=== PATIENT | male | born 1955 | race African-American/Black ===

== ENCOUNTER → 2018-01-16 | Outpatient (CLI) | payer OTHER, MEDICAID ==
[2015-11-01 09:41] VITALS: BP 125/71
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
== END ==
LOC: RAD 13:54
PROVIDERS: ATTEND Internal Medicine Nephrology
DX: R05 Cough (principal)
CPT/HCPCS: 71046

== ENCOUNTER 2018-12-21 14:49 | Inpatient (IN) ==
--- NOTE | 2018-12-21 15:38 | DR.AMS ---
HPI Time Seen Time Seen by Provider: 12/21/18 15:34 PCP Primary Care Physician: FLORENTINO HPI Comment HPI Comment: 63YR OLD MALE HERE WITH AMS AND HYPOGLYCEMIA. PATIENT GLUCOSE IMPROVE CURRENTLY. HERE VIA EMS. PATIENT SAID HE IS NOT BEING FEELING WELL WHICH CAUSE HIS GLUCOSE TO GET LOW. DENIES CHEST PAIN, FEVER, DYSURIA OR ABDOMINAL PAIN. Complaint Cheif Complaint Doctors Comments: AMS, LOW BLOOD GLUCOSE. Chief Complaint:: PATIENT STATED THAT HE HAS NOT BEEN FEELING GOOD TODAY AND HIS BLOOD SUGAR DROPPED LOW. HE ALSO STATED THAT HE DID NOT TAKE ANY OF HIS MEDICATIONS TODAY. Reviewed Nurses Notes Reviewed: Yes Source History Provided: Patient and EMS Mode of Arrival Mode of Arrival: EMS Timing Onset of Chief Complaint: 12/21/18 Came On: Suddenly Duration Duration: Constant Duration: Hours Quality Quality: Change in Behavior and Confusion Severity Severity: Moderate Context Recent: None History Of: Diabetes Associated Signs and Symptoms Associated Signs and Symptoms: Change in Behavior and Confusion PMH PMH Past Medical History: Yes Past Medical History: Arthritis, Diabetes and Hypertension Past Medical History Comment: HIV Past Surgical History: No Surgical History: No History Family History History of Family Medical Conditions: Yes Family Medical History: Diabetes Mellitus and Hypertension Social History Does patient currently use any type of tobacco product: No Have you used tobacco products in the last 12 months: No Type of Tobacco Use: None Does any household member use tobacco: No Alcohol Use: None Do you use any recreational Drugs:: No Lives With: Family Lives Where: Home infectious screening In the last 2 months have you had wt loss of >10#?: NO Have you had fever, night sweats or hemotysis?: No Have you traveled outside the country in the last 6 months?: No Isolation: Standard ROS Review of Systems Constitutional: Weakness and Fatigue Eyes: No Symptoms Reported ENTM: No Symptoms Reported Respiratoy: No Symptoms Reported Cardiovascular: No Symptoms Reported Gastrointestinal/Abdominal: No Symptoms Reported Genitourinary: No Symptoms Reported Neurological: No Symptoms Reported Musculoskeletal: No Symptoms Reported Hematologic/Lymphatic: No Symptoms Reported Endocrine: No Symptoms Reported All Other Systems: Reviewed and Negative Unable to Obtain Due To: Altered mental status PE Vitals Vital Signs: Temp Pulse Pulse Pulse Resp BP BP 12/27/18 16:00 97.5 F L 67 20 12/27/18 12:00 97.6 F 65 18 12/27/18 08:00 97.8 F 67 20 12/27/18 04:00 97.8 F 57 L 20 12/27/18 00:00 97.8 F 64 20 12/26/18 20:00 97.5 F L 67 20 12/26/18 16:00 97.9 F 77 20 12/26/18 12:00 97.6 F 93 H 20 12/26/18 08:00 97.5 F L 58 L 18 12/26/18 04:00 98.0 F 60 20 12/26/18 00:00 97.6 F 69 20 12/25/18 20:24 18 12/25/18 20:00 97.9 F 65 20 12/25/18 19:24 18 12/25/18 16:00 97.4 F L 62 18 12/25/18 12:00 98.0 F 57 L 18 12/25/18 08:00 97.8 F 62 18 12/25/18 04:00 97.6 F 58 L 18 12/24/18 23:49 98.1 F 69 18 12/24/18 20:00 97.9 F 72 18 12/24/18 16:00 98.3 F 72 18 12/24/18 12:00 98.1 F 71 20 12/24/18 11:03 18 12/24/18 10:03 18 12/24/18 08:00 98.0 F 68 18 12/24/18 04:00 99.2 F 68 16 87/51 12/24/18 00:00 99.9 F H 64 18 92/53 12/23/18 20:00 98.8 F 69 20 127/57 12/23/18 16:00 98.6 F 78 22 118/57 12/23/18 12:00 99.6 F 53 L 18 95/57 12/23/18 09:24 70 12/23/18 09:11 98.5 F 67 20 12/23/18 08:00 99.1 F 62 18 91/50 12/23/18 04:00 98.5 F 69 20 94/54 12/23/18 00:00 98.8 F 65 16 95/53 12/22/18 20:00 97.7 F 64 16 77/50 12/22/18 19:13 16 12/22/18 18:13 18 12/22/18 17:04 106/56 12/22/18 16:00 98.4 F 59 L 18 12/22/18 15:00 18 12/22/18 14:00 18 12/22/18 12:00 100.1 F H 70 20 12/22/18 08:00 100.7 F H 68 18 90/53 12/22/18 04:00 100.6 F H 68 18 109/62 12/22/18 00:00 99.6 F 66 18 98/56 12/21/18 19:35 97.6 F 70 20 108/60 12/21/18 18:10 98.4 F 12/21/18 18:00 97 F L 64 26 H 12/21/18 17:00 63 20 12/21/18 16:40 62 25 H 12/21/18 16:20 62 22 12/21/18 16:00 65 23 12/21/18 15:40 67 20 12/21/18 15:10 97.6 F 59 L 22 129/74 11/01/15 08:00 125/71 125/71 11/01/15 04:00 BP Pulse Ox 12/27/18 16:00 110/69 100 12/27/18 12:00 95/61 97 12/27/18 08:00 110/67 99 12/27/18 04:00 107/73 97 12/27/18 00:00 105/76 96 12/26/18 20:00 115/76 97 12/26/18 16:00 145/60 95 12/26/18 12:00 110/57 95 12/26/18 08:00 122/73 100 12/26/18 04:00 104/68 96 12/26/18 00:00 113/73 95 12/25/18 20:24 12/25/18 20:00 120/64 95 12/25/18 19:24 12/25/18 16:00 96/61 93 L 12/25/18 12:00 89/58 95 12/25/18 08:00 100/64 94 L 12/25/18 04:00 98/61 94 L 12/24/18 23:49 102/58 94 L 12/24/18 20:00 110/53 96 12/24/18 16:00 96/53 96 12/24/18 12:00 101/58 100 03/29/19 11:03 12/24/18 10:03 12/24/18 08:00 106/56 91 L 12/24/18 04:00 12/24/18 00:00 12/23/18 20:00 95 12/23/18 16:00 94 L 12/23/18 12:00 98 12/23/18 09:24 95 12/23/18 09:11 95 12/23/18 08:00 97 12/23/18 04:00 95 12/23/18 00:00 96 12/22/18 20:00 95 12/22/18 19:13 12/22/18 18:13 12/22/18 17:04 12/22/18 16:00 86/50 97 12/22/18 15:00 12/22/18 14:00 12/22/18 12:00 98/55 97 12/22/18 08:00 98 12/22/18 04:00 100 12/22/18 00:00 100 12/21/18 19:35 100 12/21/18 18:10 12/21/18 18:00 117/67 100 12/21/18 17:00 101/61 96 12/21/18 16:40 116/66 100 12/21/18 16:20 119/71 100 12/21/18 16:00 131/72 100 12/21/18 15:40 142/84 100 12/21/18 15:10 100 11/01/15 08:00 11/01/15 04:00 133/74 General Limitations: No Limitations General Appearance: Alert and In No Apparent Distress Head Head Exam: Normal Inspection Head Exam Physical: Other (NONE OF THE ABOVE REPORTED.) Eyes Eye exam: Normal Appearance and PERRL Pupils: Regular, Round: Bilateral ENT ENT Exam: Normal External Ear Exam External Ear Exam: Normal External Inspection TM/Canal Exam: Bilateral: Normal Nose Exam: Normal Nose Exam Mouth Exam: Normal Inspection Throat Exam: Normal Inspection Neck Neck Exam: Normal Inspection Chest Chest Inspection: Normal Inspection Respiratory Respiratory Exam: Normal Lung Sounds Bilat Respiratory Exam: Bilateral: Rhonchi and Lower: Rhonchi Cardiovascular Cardiovascular Exam: Regular Rate and Normal Rhythm Abdominal Exam Abdominal Exam: Normal Inspection Extremities Extremities Exam: Normal Inspection Back Back Exam: Normal Inspection Neurological Patient Oriented To: Person and Place Speech: Fluid Speech Cranial Nerve Exam: Gag reflex (XI): Normal Motor Strength - LUE: 5/5 Motor Strength - RUE: 5/5 Motor Strength - LLE: 5/5 Motor Strength - RLE: 5/5 Psychological Psychiatric Exam: Normal Affect Skin Skin Exam: Warm, Dry, Intact and Normal Color MDM Differential Diagnosis Metabolic: DKA, Hypercalcemia, Hypernatremia, Hypoglycemia and Hyponatremia Infectious: Sepsis and UTI COURSE Treatment Treatment: SEE ORDERS. Consultation Consultation Comments: DR ACUNA WILL ADMIT PATIENT. Education/Counseling Education/Counseling: Patient Educated On: Diagnosis ROR Labs Reviewed Laboratory Results Reviewed?: Yes Result Diagrams: 12/27/18 04:32 12/27/18 04:32 Laboratory: 12/22/18 18:25 Blood Blood Culture - Final 12/22/18 18:20 Blood Blood Culture - Final 12/23/18 13:59 Sputum - Expectorated Sputum Sputum Culture - Final 12/23/18 13:59 Sputum - Expectorated Sputum - Final 12/23/18 05:26 Urine,Clean Catch Urine Culture - Final WBC 6.6 X10^3/uL (3.6-10.0) 12/27/18 04:32 RBC 3.11 X10^6/uL (4.7-6.0) L 12/27/18 04:32 Hgb 9.2 g/dL (13.5-18.0) L 12/27/18 04:32 Hct 27.5 % (42.0-54.0) L 12/27/18 04:32 MCV 88.6 fL (80.0-100.0) 12/27/18 04:32 MCH 29.6 pg (27.0-34.0) 12/27/18 04:32 MCHC 33.5 g/dL (33.0-35.0) 12/27/18 04:32 RDW 13.2 % (11.6-16.5) 12/27/18 04:32 Plt Count 222 X10^3/uL (150.0-450.0) 12/27/18 04:32 MPV 8.7 fL (7.4-11.0) 12/27/18 04:32 Neut % (Auto) 76.1 % (42.0-75.0) H 12/27/18 04:32 Lymph % (Auto) 16.0 % (21.0-51.0) L 12/27/18 04:32 [place] % (Auto) 6.1 % (0.0-13.0) 12/27/18 04:32 Eos % (Auto) 1.6 % (0.9-2.9) 12/27/18 04:32 Baso % (Auto) 0.2 % (0.2-1.0) 12/27/18 04:32 Neut # (Auto) 5.0 x10^3/uL (2.2-4.8) H 12/27/18 04:32 Lymph # (Auto) 1.1 X10^3/uL (1.3-2.9) L 12/27/18 04:32 [place] # (Auto) 0.4 x10^3/uL (0.3-0.8) 12/27/18 04:32 Eos # (Auto) 0.1 x10^3/uL (0.0-0.2) 12/27/18 04:32 Baso # (Auto) 0.0 X10^3/uL (0.0-0.1) 12/27/18 04:32 Absolute Nucleated RBC 0.0 /100WBC 12/27/18 04:32 Sodium 139 mmol/L (136-145) 12/27/18 04:32 Corrected Sodium 141 mmol/L (136-145) 12/27/18 04:32 Potassium 4.1 mmol/L (3.5-5.1) 12/27/18 04:32 Chloride 109 mmol/L (98-107) H 12/27/18 04:32 Carbon Dioxide 19.9 mmol/L (21-32) L 12/27/18 04:32 BUN 27 mg/dL (7-18) H 12/27/18 04:32 Creatinine 2.16 mg/dL (0.70-1.30) H 12/27/18 04:32 Est GFR (MDRD) Af Amer 40 (>60) L 12/27/18 04:32 Est GFR (MDRD) Non-Af 33 (>60) L 12/27/18 04:32 Glucose 203 mg/dL (65-99) H 12/27/18 04:32 POC Glucose (mg/dL) 243 mg/dL (65-99) H 12/27/18 11:05 Calcium 7.9 mg/dL (8.5-10.1) L 12/27/18 04:32 Corrected Calcium 9.1 mg/dL (8.5-10.1) 12/27/18 04:32 Magnesium 1.8 mg/dL (1.7-2.9) 12/22/18 05:28 Total Bilirubin 0.30 mg/dL (0.2-1.0) 12/27/18 04:32 AST 234 Units/L (15-37) H 12/27/18 04:32 ALT 161 Units/L (12-78) H 12/27/18 04:32 Alkaline Phosphatase 366 Units/L (46-116) H 12/27/18 04:32 Creatine Kinase 215 Units/L (39-308) 12/23/18 08:40 CK-MB (CK-2) 1.4 ng/mL (0-4.0) 12/22/18 05:28 CK/CKMB % Calc 0.4 % (<4) 12/22/18 05:28 Troponin I < 0.02 ng/mL (0-1.5) 12/22/18 05:28 Total Protein 6.7 g/dL (6.4-8.2) 12/27/18 04:32 Albumin 2.5 g/dL (3.4-5.0) L 12/27/18 04:32 Globulin 4.2 g/dL (2.5-4.5) 12/27/18 04:32 Albumin/Globulin Ratio 0.6 Ratio (1.1-2.1) L 12/27/18 04:32 Specimen Type Clean catch urine 12/21/18 17:22 Urine Color Dark yellow (YELLOW) 12/21/18 17:22 Urine Appearance Clear (CLEAR) 12/21/18 17:22 Urine pH 5.0 (5.0 - 8.0) 12/21/18 17:22 Ur Specific [place] 1.015 (1.000-1.030) 12/21/18 17:22 Urine Protein 2+ (NEGATIVE) 12/21/18 17:22 Urine Glucose (UA) Negative (NEGATIVE) 12/21/18 17:22 Urine Ketones Negative (NEGATIVE) 12/21/18 17:22 Urine Occult Blood 1+ (NEGATIVE) 12/21/18 17:22 Urine Nitrite Negative (NEGATIVE) 12/21/18 17:22 Urine Bilirubin Negative (NEGATIVE) 12/21/18 17:22 Urine Urobilinogen Normal (NORMAL) 12/21/18 17:22 Ur Leukocyte Esterase Negative (NEGATIVE) 12/21/18 17:22 Urine RBC 0-2 /HPF (NONE SEEN) 12/21/18 17:22 Urine WBC None seen /HPF (NONE SEEN) 12/21/18 17:22 Ur Squamous Epith Cells Rare /HPF (NEGATIVE) 12/21/18 17:22 Amorphous Sediment Trace /HPF (NEGATIVE) 12/21/18 17:22 Urine Bacteria Trace /HPF (NEGATIVE) 12/21/18 17:22 Hyaline Casts Rare /LPF (NEGATIVE) 12/21/18 17:22 Urine Mucus Rare /HPF (NEGATIVE) 12/21/18 17:22 Ur Culture Indicated? No/not indicated 12/21/18 17:22 Stool Description 6oz, brwn, formed 12/25/18 16:03 Stl Occult Blood (IFOB) Positive (NEGATIVE) A 12/25/18 16:03 XRAY XRAY Interpreted by: Radiologist XRAY Findings: REPORT ON RECORD NOTED AND DISCUSS WITH PATIENT. EKG Rate: 66 [place]: Normal Rhythm: NSR and PVCs Block: IVCD Hypertrophy: LAE and PROSPER ST: Old, Ant and Infarct Diagnosis Discharge Problem: Hypoglycemia Instructions Instructions: Acute Kidney Injury, Adult Weakness, [id number] How to Use a Walker Type 2 Diabetes Mellitus, Diagnosis, Adult, [id number] Forms: Patient Portal
[2018-12-21 16:09] LABS: BASOPHILS % (AUTO) 0.7 % (0.2-1.0); EOSINOPHILS % (AUTO) 14.2 % (0.9-2.9); HEMATOCRIT 37.5 % (42.0-54.0); HEMOGLOBIN 12.4 g/dL (13.5-18.0); LYMPHOCYTES # (AUTO) 1.9 X10^3/uL (1.3-2.9); LYMPHOCYTES % (AUTO) 28.8 % (21.0-51.0); MEAN CORPUSCULAR HEMOGLOBIN 29.5 pg (27.0-34.0); MEAN CORPUSCULAR VOLUME 89.6 fL (80.0-100.0); MEAN PLATELET VOLUME 8.1 fL (7.4-11.0); MONOCYTES # (AUTO) 0.9 x10^3/uL (0.3-0.8); MONOCYTES % (AUTO) 12.9 % (0.0-13.0); NEUTROPHILS # (AUTO) 2.9 x10^3/uL (2.2-4.8); NEUTROPHILS % (AUTO) 43.4 % (42.0-75.0); PLATELET COUNT 187 X10^3/uL (150.0-450.0); RED BLOOD COUNT 4.19 X10^6/uL (4.7-6.0); RED CELL DISTRIBUTION WIDTH 13.4 % (11.6-16.5); WHITE BLOOD COUNT 6.7 X10^3/uL (3.6-10.0)
[2018-12-21 16:19] LABS: ALANINE AMINOTRANSFERASE 71 Units/L (12-78); ALBUMIN 3.2 g/dL (3.4-5.0); ALKALINE PHOSPHATASE 313 Units/L (46-116); ASPARTATE AMINO TRANSFERASE 109 Units/L (15-37); BLOOD UREA NITROGEN 35 mg/dL (7-18); CALCIUM 8.6 mg/dL (8.5-10.1); CARBON DIOXIDE 21.1 mmol/L (21-32); CHLORIDE 100 mmol/L (98-107); COR CA(FOR HYPOALB) 9.2 mg/dL (8.5-10.1); CREATININE 2.73 mg/dL (0.70-1.30); SODIUM 132 mmol/L (136-145); TOTAL PROTEIN 8.4 g/dL (6.4-8.2); eGFR NON BLACK RACES 25 (>60)
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
[2018-12-21] MEDS ORDERED: NS 1000 ML 1,000 ML ONE (17:02)
[2018-12-21] MEDS: NS 1000 ML 1,000 ML IV SCH (17:03)
[2018-12-21 18:13] LABS: BILIRUBIN,URINE NEGATIVE (NEGATIVE); BLOOD/HEMOGLOBIN,URINE 1+ (NEGATIVE); GLUCOSE, URINE NEGATIVE (NEGATIVE); KETONES,URINE NEGATIVE (NEGATIVE); LEUKOCYTE ESTERASE ,URINE NEGATIVE (NEGATIVE); NITRITES,URINE NEGATIVE (NEGATIVE); PROTEIN,URINE 2+ (NEGATIVE); UROBILINOGEN,URINE NORMAL (NORMAL)
[2018-12-21 18:21] LABS: AMORPHOUS SEDIMENT,UR TRACE /HPF (NEGATIVE); APPEARANCE,URINE CLEAR (CLEAR); BACTERIA,URINE TRACE /HPF (NEGATIVE); COLOR,URINE DARK YELLOW (YELLOW); HYALINE CASTS, URINE RARE /LPF (NEGATIVE); MUCUS,URINE RARE /HPF (NEGATIVE); RBC,URINE 0-2 /HPF (NONE SEEN); SQUAMOUS EPITHELIAL CELL,UR RARE /HPF (NEGATIVE)
[2018-12-21] MEDS ORDERED: D5 NS 1000 ML 1,000 ML ONE (20:34)
[2018-12-21] MEDS: D5 NS 1000 ML 1,000 ML IV SCH (21:10)
[2018-12-22 00:44] LABS: CKMB % 0.6 % (<4); CREATINE KINASE 357 Units/L (39-308); TROPONIN I < 0.02 ng/mL (0-1.5)
[2018-12-22] MEDS: NS 1000 ML 1,000 ML IV SCH (04:19)
[2018-12-22] MEDS: D5 NS 1000 ML 1,000 ML IV SCH ×5 (04:19→17:57)
[2018-12-22 06:18] LABS: BASOPHILS % (AUTO) 0.7 % (0.2-1.0); EOSINOPHILS # (AUTO) 0.9 x10^3/uL (0.0-0.2); HEMATOCRIT 33.8 % (42.0-54.0); HEMOGLOBIN 11.2 g/dL (13.5-18.0); LYMPHOCYTES # (AUTO) 1.2 X10^3/uL (1.3-2.9); LYMPHOCYTES % (AUTO) 21.9 % (21.0-51.0); MEAN CORPUSCULAR HEMOGLOBIN 29.2 pg (27.0-34.0); MEAN CORPUSCULAR HGB CONC 33.1 g/dL (33.0-35.0); MEAN CORPUSCULAR VOLUME 88.2 fL (80.0-100.0); MEAN PLATELET VOLUME 8.6 fL (7.4-11.0); MONOCYTES # (AUTO) 0.7 x10^3/uL (0.3-0.8); MONOCYTES % (AUTO) 13.2 % (0.0-13.0); NEUTROPHILS # (AUTO) 2.7 x10^3/uL (2.2-4.8); NEUTROPHILS % (AUTO) 48.2 % (42.0-75.0); PLATELET COUNT 173 X10^3/uL (150.0-450.0); RED BLOOD COUNT 3.83 X10^6/uL (4.7-6.0); RED CELL DISTRIBUTION WIDTH 13.2 % (11.6-16.5); WHITE BLOOD COUNT 5.7 X10^3/uL (3.6-10.0)
[2018-12-22 06:38] LABS: ALBUMIN 2.7 g/dL (3.4-5.0); CALCIUM 8.1 mg/dL (8.5-10.1); CARBON DIOXIDE 21.8 mmol/L (21-32); COR CA(FOR HYPOALB) 9.1 mg/dL (8.5-10.1); CREATININE 2.36 mg/dL (0.70-1.30); MAGNESIUM 1.8 mg/dL (1.7-2.9); TOTAL PROTEIN 7.2 g/dL (6.4-8.2)
[2018-12-22 06:53] LABS: CKMB % 0.4 % (<4); CREATINE KINASE 346 Units/L (39-308); CREATINE KINASE MB 1.4 ng/mL (0-4.0); TROPONIN I < 0.02 ng/mL (0-1.5)
[2018-12-22 10:29] VITALS: BMI 20.7
--- NOTE | 2018-12-22 12:52 | CT ---
HISTORY: Altered mental status Study: CT brain without contrast Comparison: None Technique: Multiple axial images of the brain were obtained without administration of IV contrast. Dose reduction techniques including Automated Exposure Control (AEC) and adjustment of mA and kV were utilized. Findings: There is mild cerebral volume loss and nonspecific white matter hypoattenuation likely related to chronic microvascular ischemic changes. No evidence of acute hemorrhage, midline shift, mass effect or abnormal extra-axial fluid collection. The ventricular system is symmetric and nondilated. The soft tissues and osseous structures are unremarkable. There is scattered mucosal thickening throughout the paranasal sinuses. No air-fluid levels are seen. IMPRESSION: 1.No acute intracranial abnormality. Reported By:
[2018-12-22] MEDS: ULTRAM PO PRN ×2 (14:00→18:13)
--- NOTE | 2018-12-22 14:32 | MRI ---
MRI cervical spine without contrast Indication: Neck pain Technique: Multiplanar, multi sequence imaging of the cervical spine without IV contrast administration. Findings: There is moderate focal kyphosis of the mid cervical spine. No acute fracture or localizing bone marrow signal abnormality identified within the cervical spine. There is moderate disc desiccation disc space loss at C3-4, C5-6 and C6-7 with anterior projecting osteophytes noted at these levels. Small amount of prevertebral soft tissue swelling is noted at the level of C4-5. No convincing increased signal identified within the cervical cord. No expansion or atrophy of the cervical cord. Visualized posterior fossa demonstrates no mass or mass effect. Craniocervical junction is normal. The vertebral arteries demonstrate normal flow voids. There is increased mucosal thickening within the visualized right and left sphenoid and maxillary sinuses . At C2-3 disc osteophyte complex and [id number]-[id number]-[id number]-right uncovertebral hypertrophy with facet arthropathy causes moderate spinal canal stenosis with moderate severe left and moderate right-sided neural foraminal narrowing. At C3-4 disc osteophyte complex, uncovertebral hypertrophy and facet arthropathy causes severe spinal canal stenosis with suspected moderate severe bilateral neural foraminal stenosis. At C4-5 disc osteophyte complex and uncovertebral hypertrophy along with facet arthropathy causes moderate spinal canal stenosis with moderate bilateral neural foraminal stenosis. At C5-6 disc osteophyte complex and uncovertebral hypertrophy with a slightly right lateralizing disc protrusion. Mild facet arthropathy is noted bilaterally. There is moderate spinal canal stenosis with compression of the right lateral recess. There is [id number] left and moderate right-sided neural foraminal narrowing. At C6-7 disc osteophyte complex with a right lateralizing disc protrusion causing moderate spinal canal stenosis and mild mass effect on the right lateral recess. There is gssa-[id number] bilateral bony neural foraminal stenosis. At C7-T1 mild uncovertebral hypertrophy and disc osteophyte complex causes mild spinal canal stenosis with [id number]-[id number] right and mild left-sided neural foraminal stenosis. Impression: Exaggerated kyphosis of the mid cervical spine with multilevel discogenic degenerative change and facet arthropathy causing varying degrees of spinal canal and neural foraminal stenosis as described above. Reported By:
--- NOTE | 2018-12-22 14:35 | VAS ---
Exam: Carotid Doppler exam History: 63-year-old male with syncope. Evaluate for possible carotid artery stenosis. Comparison: None Findings: Mild degree of plaque is present in both carotid bulbs. On the right, peak systolic velocities in cm/sec of the right internal and common carotid arteries measure 69 and 118 respectively. The greatest ICA/CCA ratio on the right is 0.58. On the left, peak systolic velocities in cm/sec of the left internal and common carotid arteries measure 49 and 119 respectively. The greatest ICA/CCA ratio on the left is 0.4. Antegrade flow is documented in patent vertebral arteries bilaterally. Impression: No hemodynamically significant carotid stenosis is seen on either side. Reported By:
--- NOTE | 2018-12-22 18:02 | DR.H&P ---
H&P - History & Physical for Day of: H&P Date: 12/21/18 - Chief Complaint Chief Complaint: PATIENT STATED THAT HE HAS NOT BEEN FEELING GOOD TODAY AND HIS BLOOD SUGAR DROPPED LOW. HE ALSO STATED THAT HE DID NOT TAKE ANY OF HIS MEDICATIONS TODAY. - History of Present Illness History of Present Illness: 63 BM ER ADMISSION WITH CO "FEELING BAD". PT HAS PMH OF DM, HIV, HTN, OA. PT STATES HIS BLOOD SUGAR HAS BEEN RUNNING LOW, PT CO NO APPETITE. PT HAD NA 132, 2.72 IN ER. PT ADMITTED FOR IV HYDRATION, BLOOD SUGAR CONTROL, EVALUATION OF ACUTE ILLNESS. - Past Medical History Past Medical History: Hypertension, Diabetes, Arthritis Additional Medical History: HIV - Past Surgical History Surgical History: No History - Family History Family Medical History: Diabetes Mellitus, Hypertension - Social History Does patient currently use any type of tobacco product: No Have you used tobacco products in the last 12 months: No Type of Tobacco Use: None Does any household member use tobacco: No Alcohol Use: None Drug Use: None - Medications Home Medications: No Known Drug Allergies Allergy (Verified 12/21/18 16:00) CONTINUE taking the following medications apixaban [Eliquis] 5 mg PO BID 12/21/18 [History] darunavir ethanolate [Prezista] 800 mg PO DAILY 12/21/18 [History] gabapentin 300 - 600 mg PO HS 12/21/18 [History] raltegravir [Isentress] 400 mg PO BID 12/21/18 [History] ritonavir 100 mg PO DAILY 12/21/18 [History] rosuvastatin 10 mg PO HS 12/21/18 [History] sitagliptin [Januvia] 100 mg PO DAILY 12/21/18 [History] - Review of Systems Constitutional: Weakness Eyes: No Symptoms Reported ENT: No Symptoms Reported Respiratory: No Symptoms Reported Cardiovascular: No Symptoms Reported Gastrointestinal: Nausea, Other (POOR APPETITE) Genitourinary: No Symptoms Reported Musculoskeletal: Neck Pain Skin: No Symptoms Reported Neurological: Weakness - Physical Exam Vital Signs: Temperature 98.4 F Pulse Rate [Left Brachial] 59 Pulse Rate [Apical] 64 Pulse Rate 59 Respiratory Rate 18 Blood Pressure [Right Arm] 86/50 Blood Pressure [Left Arm] 106/56 Blood Pressure 129/74 O2 Sat by Pulse Oximetry 97 Oriented: Person Eyes: Normal Ear: Normal Nose: Normal Throat: Normal Respiratory: RLL Diminished, LLL Diminished Cardiovascular: Normal. negative: Edema : Normal Auscultation: Bowel Sounds: Increased Skin: Decreased Turgur Musculoskeletal: Tender, Motor Deficit Psychiatric: Anxiety Affect: Anxious Speech Pattern: Appropriate - Assessment/Plan (1) Acute renal failure Status: Acute Plan: ADMIT, GENTLE IV HYDRATION. BP CONTROL, CE, EKG. CHEST XRAY ON ADMISSION. BLOOD AND URINE CULTURES. 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
[2018-12-22] MEDS: NEURONTIN CAP 300 MG PO SCH (21:28)
[2018-12-22] MEDS: CRESTOR TAB 10 MG PO SCH (21:30)
[2018-12-22] MEDS: ELIQUIS PO SCH (21:30)
[2018-12-22] MEDS: ISENTRESS PO SCH (21:31)
[2018-12-22] MEDS: DARUNAVIR ETHANOLATE 800 MG PO SCH (21:31)
[2018-12-23] MEDS: D5 NS 1000 ML 1,000 ML IV SCH ×4 (05:35→21:42)
[2018-12-23 06:27] LABS: BASOPHILS % (AUTO) 0.6 % (0.2-1.0); EOSINOPHILS # (AUTO) 0.9 x10^3/uL (0.0-0.2); EOSINOPHILS % (AUTO) 15.6 % (0.9-2.9); HEMATOCRIT 33.5 % (42.0-54.0); HEMOGLOBIN 11.2 g/dL (13.5-18.0); LYMPHOCYTES # (AUTO) 1.4 X10^3/uL (1.3-2.9); LYMPHOCYTES % (AUTO) 23.4 % (21.0-51.0); MEAN CORPUSCULAR HEMOGLOBIN 29.8 pg (27.0-34.0); MEAN CORPUSCULAR HGB CONC 33.4 g/dL (33.0-35.0); MEAN CORPUSCULAR VOLUME 89.1 fL (80.0-100.0); MEAN PLATELET VOLUME 8.2 fL (7.4-11.0); MONOCYTES # (AUTO) 0.7 x10^3/uL (0.3-0.8); MONOCYTES % (AUTO) 12.7 % (0.0-13.0); NEUTROPHILS # (AUTO) 2.8 x10^3/uL (2.2-4.8); NEUTROPHILS % (AUTO) 47.7 % (42.0-75.0); PLATELET COUNT 175 X10^3/uL (150.0-450.0); RED BLOOD COUNT 3.77 X10^6/uL (4.7-6.0); RED CELL DISTRIBUTION WIDTH 13.5 % (11.6-16.5); WHITE BLOOD COUNT 5.8 X10^3/uL (3.6-10.0)
[2018-12-23 06:31] LABS: ALANINE AMINOTRANSFERASE 50 Units/L (12-78); ALBUMIN 2.7 g/dL (3.4-5.0); ALKALINE PHOSPHATASE 327 Units/L (46-116); ASPARTATE AMINO TRANSFERASE 66 Units/L (15-37); BLOOD UREA NITROGEN 23 mg/dL (7-18); CALCIUM 8.3 mg/dL (8.5-10.1); CARBON DIOXIDE 23.1 mmol/L (21-32); CHLORIDE 105 mmol/L (98-107); COR CA(FOR HYPOALB) 9.3 mg/dL (8.5-10.1); CREATININE 2.34 mg/dL (0.70-1.30); SODIUM 137 mmol/L (136-145); TOTAL PROTEIN 7.2 g/dL (6.4-8.2); eGFR NON BLACK RACES 30 (>60)
[2018-12-23] MEDS ORDERED: SALINE 3% 15 ML NEB TX NEB ONE (09:09)
[2018-12-23] MEDS: ELIQUIS PO SCH ×2 (09:37→21:15)
[2018-12-23] MEDS: DARUNAVIR ETHANOLATE 800 MG PO SCH (09:37)
[2018-12-23] MEDS: ISENTRESS PO SCH (09:38)
[2018-12-23] MEDS: RITONAVIR 100 MG PO SCH (09:38)
[2018-12-23] MEDS: DIFLUCAN 100 MG IV (MIX by PHARMACY)* 100 MG/50 ML BAG IV SCH (11:15)
[2018-12-23] MEDS: PROTONIX INJ 40 MG VIAL IVP SCH ×2 (11:15→21:19)
[2018-12-23] MEDS: NYSTATIN SUSP PO SCH ×3 (13:57→21:14)
[2018-12-23] MEDS: HumuLIN R SC PRN (17:34)
--- NOTE | 2018-12-23 18:17 | PCM.PROG ---
Progress Note - Progress Note for Day of Date of Exam: 12/23/18 - Subjective Subjective: 63 BM ER ADMISSION ON 12/21 WITH CO WEAKNESS, LEFT NECK PAIN, DIFFICULTY SWALLOWING. PT HAD CT HEAD WITHOUT ACUTE FINDINGS. PT HAD MRI C SPINE WITH MULTI LEVEL DDD. PT CURRENTLY ON TRAMADOL PO PRN. PT/OT CONSULT TO ASSESS SWALLOWING. WILL START PROTONIX IV BID, IV DIFLUCAN. - Past Medical Family Social History Past Med/Fam/Surg Hx: No changes since H&P Allergies: Allergies No Known Drug Allergies Allergy (Verified 12/21/18 16:00) - Review of Systems ROS: No change since H&P - Vital Signs and I&O's Vital Signs: Temperature 98.6 F Pulse Rate [Left Brachial] 78 Pulse Rate [Apical] 64 Pulse Rate 70 Respiratory Rate 22 Blood Pressure [Right Arm] 86/50 Blood Pressure [Left Arm] 118/57 Blood Pressure 129/74 O2 Sat by Pulse Oximetry 94 Intake and Output: Intake & Output 12/21/18 12/22/18 12/23/18 12/24/18 11:59 11:59 11:59 11:59 Intake Total 800 / 800 1720 / 1720 480 / 480 Output Total 825 / 825 1100 / 1100 550 / 550 Balance -25 / -25 620 / 620 -70 / -70 - Physical Exam Oriented: Person Eyes: Normal Ear: Normal Nose: Normal Throat: Exudate (WHITE) Respiratory: Diminished Cardiovascular: Normal. negative: Edema : Normal Auscultation: Bowel Sounds: Increased Tenderness: Normal Skin: Decreased Turgur Musculoskeletal: Tender, Motor Deficit Psychiatric: Anxiety Affect: Anxious Speech Pattern: Clear, Appropriate - Laboratory and Diagnostics Result Diagrams: 12/23/18 05:31 12/23/18 05:31 Labs: 12/23/18 13:59 Sputum - Expectorated Sputum - Final Laboratory WBC 5.8 X10^3/uL (3.6-10.0) 12/23/18 05:31 RBC 3.77 X10^6/uL (4.7-6.0) L 12/23/18 05:31 Hgb 11.2 g/dL (13.5-18.0) L 12/23/18 05:31 Hct 33.5 % (42.0-54.0) L 12/23/18 05:31 MCV 89.1 fL (80.0-100.0) 12/23/18 05:31 MCH 29.8 pg (27.0-34.0) 12/23/18 05:31 MCHC 33.4 g/dL (33.0-35.0) 12/23/18 05:31 RDW 13.5 % (11.6-16.5) 12/23/18 05:31 Plt Count 175 X10^3/uL (150.0-450.0) 12/23/18 05:31 MPV 8.2 fL (7.4-11.0) 12/23/18 05:31 Neut % (Auto) 47.7 % (42.0-75.0) 12/23/18 05:31 Lymph % (Auto) 23.4 % (21.0-51.0) 12/23/18 05:31 [place] % (Auto) 12.7 % (0.0-13.0) 12/23/18 05:31 Eos % (Auto) 15.6 % (0.9-2.9) H 12/23/18 05:31 Baso % (Auto) 0.6 % (0.2-1.0) 12/23/18 05:31 Neut # (Auto) 2.8 x10^3/uL (2.2-4.8) 12/23/18 05:31 Lymph # (Auto) 1.4 X10^3/uL (1.3-2.9) 12/23/18 05:31 [place] # (Auto) 0.7 x10^3/uL (0.3-0.8) 12/23/18 05:31 Eos # (Auto) 0.9 x10^3/uL (0.0-0.2) H 12/23/18 05:31 Baso # (Auto) 0.0 X10^3/uL (0.0-0.1) 12/23/18 05:31 Absolute Nucleated RBC 0.0 /100WBC 12/23/18 05:31 Sodium 137 mmol/L (136-145) 12/23/18 05:31 Corrected Sodium TNP 12/23/18 05:31 Potassium 4.4 mmol/L (3.5-5.1) 12/23/18 05:31 Chloride 105 mmol/L (98-107) 12/23/18 05:31 Carbon Dioxide 23.1 mmol/L (21-32) 12/23/18 05:31 BUN 23 mg/dL (7-18) H 12/23/18 05:31 Creatinine 2.34 mg/dL (0.70-1.30) H 12/23/18 05:31 Est GFR (MDRD) Af Amer 37 (>60) L 12/23/18 05:31 Est GFR (MDRD) Non-Af 30 (>60) L 12/23/18 05:31 Glucose 99 mg/dL (65-99) 12/23/18 05:31 POC Glucose (mg/dL) 204 mg/dL (65-99) H 12/23/18 16:19 Calcium 8.3 mg/dL (8.5-10.1) L 12/23/18 05:31 Corrected Calcium 9.3 mg/dL (8.5-10.1) 12/23/18 05:31 Magnesium 1.8 mg/dL (1.7-2.9) 12/22/18 05:28 Total Bilirubin 0.90 mg/dL (0.2-1.0) 12/23/18 05:31 AST 66 Units/L (15-37) H 12/23/18 05:31 ALT 50 Units/L (12-78) 12/23/18 05:31 Alkaline Phosphatase 327 Units/L (46-116) H 12/23/18 05:31 Creatine Kinase 215 Units/L (39-308) 12/23/18 08:40 CK-MB (CK-2) 1.4 ng/mL (0-4.0) 12/22/18 05:28 CK/CKMB % Calc 0.4 % (<4) 12/22/18 05:28 Troponin I < 0.02 ng/mL (0-1.5) 12/22/18 05:28 Total Protein 7.2 g/dL (6.4-8.2) 12/23/18 05:31 Albumin 2.7 g/dL (3.4-5.0) L 12/23/18 05:31 Globulin 4.5 g/dL (2.5-4.5) 12/23/18 05:31 Albumin/Globulin Ratio 0.6 Ratio (1.1-2.1) L 12/23/18 05:31 Specimen Type Clean catch urine 12/21/18 17:22 Urine Color Dark yellow (YELLOW) 12/21/18 17:22 Urine Appearance Clear (CLEAR) 12/21/18 17:22 Urine pH 5.0 (5.0 - 8.0) 12/21/18 17:22 Ur Specific [place] 1.015 (1.000-1.030) 12/21/18 17:22 Urine Protein 2+ (NEGATIVE) 12/21/18 17:22 Urine Glucose (UA) Negative (NEGATIVE) 12/21/18 17:22 Urine Ketones Negative (NEGATIVE) 12/21/18 17:22 Urine Occult Blood 1+ (NEGATIVE) 12/21/18 17:22 Urine Nitrite Negative (NEGATIVE) 12/21/18 17:22 Urine Bilirubin Negative (NEGATIVE) 12/21/18 17:22 Urine Urobilinogen Normal (NORMAL) 12/21/18 17:22 Ur Leukocyte Esterase Negative (NEGATIVE) 12/21/18 17:22 Urine RBC 0-2 /HPF (NONE SEEN) 12/21/18 17:22 Urine WBC None seen /HPF (NONE SEEN) 12/21/18 17:22 Ur Squamous Epith Cells Rare /HPF (NEGATIVE) 12/21/18 17:22 Amorphous Sediment Trace /HPF (NEGATIVE) 12/21/18 17:22 Urine Bacteria Trace /HPF (NEGATIVE) 12/21/18 17:22 Hyaline Casts Rare /LPF (NEGATIVE) 12/21/18 17:22 Urine Mucus Rare /HPF (NEGATIVE) 12/21/18 17:22 Ur Culture Indicated? No/not indicated 12/21/18 17:22 - Plan (1) Acute renal failure Status: Acute Plan: GENTLE IV HYDRATION, STRICT I &OS. BP CONTROL, CE, EKG. AM CXR. BLOOD AND URINE CULTURES COLLECTED ON ADMISSION. VERIFY HOME MEDICATION, BS CONTROL (2) Hyponatremia Status: Acute (3) Diabetes mellitus Status: Chronic Qualifiers: Diabetes mellitus type: type 2 Diabetes mellitus complication status: with neurologic complications Diabetes mellitus complication detail: with polyneuropathy Qualified Code(s): E11.42 - Type 2 diabetes mellitus with diabetic polyneuropathy (4) Human immunodeficiency virus disease Status: Chronic (5) Dehydration, mild Status: Acute (6) Hypoglycemia Status: Acute (7) Weakness Status: Acute (8) Thrush of mouth and esophagus Status: Acute Plan: [place]STATIN, IV DIFLUCAN
[2018-12-23] MEDS ORDERED: ZOFRAN INJ 4 MG VIAL IVP PRN (18:57)
[2018-12-23] MEDS: CRESTOR TAB 10 MG PO SCH (21:15)
[2018-12-23] MEDS: NEURONTIN CAP 300 MG PO SCH (21:15)
[2018-12-23] MEDS: PATIENT'S HOME MEDICATION PO SCH (21:17)
[2018-12-24] MEDS ORDERED: D50W ABBOJECT SYR IV ONE (01:30)
[2018-12-24] MEDS ORDERED: D50W ABBOJECT SYR ONE (01:34)
[2018-12-24 06:07] LABS: BASOPHILS % (AUTO) 0.7 % (0.2-1.0); EOSINOPHILS # (AUTO) 0.9 x10^3/uL (0.0-0.2); EOSINOPHILS % (AUTO) 14.6 % (0.9-2.9); HEMATOCRIT 31.5 % (42.0-54.0); HEMOGLOBIN 10.6 g/dL (13.5-18.0); LYMPHOCYTES # (AUTO) 1.2 X10^3/uL (1.3-2.9); LYMPHOCYTES % (AUTO) 21.1 % (21.0-51.0); MEAN CORPUSCULAR HEMOGLOBIN 29.8 pg (27.0-34.0); MEAN CORPUSCULAR HGB CONC 33.8 g/dL (33.0-35.0); MEAN CORPUSCULAR VOLUME 88.1 fL (80.0-100.0); MEAN PLATELET VOLUME 8.3 fL (7.4-11.0); MONOCYTES # (AUTO) 0.7 x10^3/uL (0.3-0.8); MONOCYTES % (AUTO) 11.7 % (0.0-13.0); NEUTROPHILS # (AUTO) 3.1 x10^3/uL (2.2-4.8); NEUTROPHILS % (AUTO) 51.9 % (42.0-75.0); PLATELET COUNT 179 X10^3/uL (150.0-450.0); RED BLOOD COUNT 3.57 X10^6/uL (4.7-6.0); RED CELL DISTRIBUTION WIDTH 13.2 % (11.6-16.5); WHITE BLOOD COUNT 5.9 X10^3/uL (3.6-10.0)
[2018-12-24 06:32] LABS: ALANINE AMINOTRANSFERASE 69 Units/L (12-78); ALBUMIN 2.4 g/dL (3.4-5.0); ALKALINE PHOSPHATASE 472 Units/L (46-116); ASPARTATE AMINO TRANSFERASE 110 Units/L (15-37); BLOOD UREA NITROGEN 22 mg/dL (7-18); CALCIUM 8.2 mg/dL (8.5-10.1); CARBON DIOXIDE 21.1 mmol/L (21-32); CHLORIDE 105 mmol/L (98-107); COR CA(FOR HYPOALB) 9.5 mg/dL (8.5-10.1); CREATININE 2.41 mg/dL (0.70-1.30); SODIUM 135 mmol/L (136-145); TOTAL PROTEIN 6.8 g/dL (6.4-8.2); eGFR NON BLACK RACES 29 (>60)
[2018-12-24] MEDS: ULTRAM PO PRN (10:03)
[2018-12-24] MEDS: DIFLUCAN 100 MG IV (MIX by PHARMACY)* 100 MG/50 ML BAG IV SCH (10:04)
[2018-12-24] MEDS: ELIQUIS PO SCH ×2 (10:05→20:33)
[2018-12-24] MEDS: D5 NS 1000 ML 1,000 ML IV SCH ×2 (10:05→17:36)
[2018-12-24] MEDS: PROTONIX INJ 40 MG VIAL IVP SCH ×2 (10:05→20:34)
[2018-12-24] MEDS: NYSTATIN SUSP PO SCH ×4 (10:05→20:33)
[2018-12-24] MEDS: DARUNAVIR ETHANOLATE 800 MG PO SCH (10:06)
[2018-12-24] MEDS: RITONAVIR 100 MG PO SCH (10:07)
[2018-12-24] MEDS: PATIENT'S HOME MEDICATION PO SCH ×2 (10:07→20:35)
[2018-12-24] MEDS: FLEXERIL TAB 10 MG PO SCH ×2 (11:15→20:35)
[2018-12-24] MEDS: SOLU-Medrol 40 MG VIAL IVP SCH ×2 (13:45→22:18)
[2018-12-24] MEDS: CRESTOR TAB 10 MG PO SCH (20:33)
[2018-12-24] MEDS: NEURONTIN CAP 300 MG PO SCH (20:33)
[2018-12-25 05:28] LABS: BASOPHILS % (AUTO) 0.2 % (0.2-1.0); EOSINOPHILS # (AUTO) 0.1 x10^3/uL (0.0-0.2); EOSINOPHILS % (AUTO) 1.6 % (0.9-2.9); HEMATOCRIT 31.3 % (42.0-54.0); HEMOGLOBIN 10.3 g/dL (13.5-18.0); LYMPHOCYTES # (AUTO) 0.9 X10^3/uL (1.3-2.9); LYMPHOCYTES % (AUTO) 15.7 % (21.0-51.0); MEAN CORPUSCULAR HEMOGLOBIN 29.6 pg (27.0-34.0); MEAN CORPUSCULAR VOLUME 89.7 fL (80.0-100.0); MEAN PLATELET VOLUME 8.7 fL (7.4-11.0); MONOCYTES # (AUTO) 0.2 x10^3/uL (0.3-0.8); MONOCYTES % (AUTO) 2.8 % (0.0-13.0); NEUTROPHILS # (AUTO) 4.4 x10^3/uL (2.2-4.8); NEUTROPHILS % (AUTO) 79.7 % (42.0-75.0); PLATELET COUNT 191 X10^3/uL (150.0-450.0); RED BLOOD COUNT 3.49 X10^6/uL (4.7-6.0); RED CELL DISTRIBUTION WIDTH 13.3 % (11.6-16.5); WHITE BLOOD COUNT 5.6 X10^3/uL (3.6-10.0)
[2018-12-25] MEDS: SOLU-Medrol 40 MG VIAL IVP SCH (05:29)
[2018-12-25] MEDS: D5 NS 1000 ML 1,000 ML IV SCH ×3 (05:31→17:46)
[2018-12-25 05:32] LABS: ALBUMIN 2.6 g/dL (3.4-5.0); CALCIUM 8.4 mg/dL (8.5-10.1); COR CA(FOR HYPOALB) 9.5 mg/dL (8.5-10.1); CREATININE 2.52 mg/dL (0.70-1.30); TOTAL PROTEIN 7.3 g/dL (6.4-8.2)
[2018-12-25] MEDS: HumuLIN R SC PRN ×2 (05:52→20:50)
[2018-12-25] MEDS: NYSTATIN SUSP PO SCH ×5 (09:08→20:45)
[2018-12-25] MEDS: DIFLUCAN 100 MG IV (MIX by PHARMACY)* 100 MG/50 ML BAG IV SCH (09:08)
[2018-12-25] MEDS: ELIQUIS PO SCH ×2 (09:08→20:43)
[2018-12-25] MEDS: PROTONIX INJ 40 MG VIAL IVP SCH ×2 (09:08→20:43)
[2018-12-25] MEDS: FLEXERIL TAB 10 MG PO SCH ×2 (09:08→20:42)
[2018-12-25] MEDS: RITONAVIR 100 MG PO SCH ×2 (09:09→09:10)
[2018-12-25] MEDS: DARUNAVIR ETHANOLATE 800 MG PO SCH (09:10)
[2018-12-25] MEDS: PATIENT'S HOME MEDICATION PO SCH ×2 (09:19→20:43)
--- NOTE | 2018-12-25 16:03 | PCM.PROG ---
Progress Note - Progress Note for Day of Date of Exam: 12/25/18 - Subjective Subjective: WAS ADMITTED ON 12/21 WITH WEAKNESS, LEFT SIDED NECK PAIN, AND DYSPHAGIA. TODAY, HE IS ALERT AND ORIENTED, SITTING UP IN BED ON MORNING ROUNDS. HE IS EATING BREAKFAST WELL AND WITHOUT DIFFICULTY THIS MORNING. HE CONTINUES WITH NECK PAIN AND WEAKNESS. HIS VITALS THIS MORNING ARE 97.8-62-18-94%-100/64. LABS WERE OBTAINED. ABNORMAL LAB VALUES INCLUDE THE FOLLOWING: RBC 3.49, HGB 10.3, HCT 31.3, SODIUM 132, POTASSIUM 5.2, CARBON DIOXIDE 19.0, BUN 23, CREATININE 2.52, GLUCOSE 351, CALCIUM 8.4, AST 75, ALK PHOS 487, ALBUMIN 2.6, GLOBULIN 4.7. A C-SPINE MRI WAS OBTAINED ON 12/23 AND REVEALED MULTI-LEVEL DDD. HE HAS A HISTORY OF RENAL FAILURE, DIABETES, AND HIV. TODAY, WE WILL CONTINUE W ITH DIFLUCAN FOR ORAL THRUSH, IV FLUIDS, AND CURRENT PLAN OF CARE. OTHERWISE, WE WILL FOLLOW UP WITH AM LABS AND CONTINUE TO MONITOR. - Past Medical Family Social History Past Med/Fam/Surg Hx: No changes since H&P Allergies: Allergies No Known Drug Allergies Allergy (Verified 12/21/18 16:00) - Review of Systems ROS: No change since H&P - Vital Signs and I&O's Vital Signs: Temperature 98.0 F Pulse Rate [Left Brachial] 57 Pulse Rate [Apical] 64 Pulse Rate 70 Respiratory Rate 18 Blood Pressure [Right Arm] 89/58 Blood Pressure [Left Arm] 87/51 Blood Pressure 129/74 O2 Sat by Pulse Oximetry 95 Intake and Output: Intake & Output 12/23/18 12/24/18 12/25/18 12/26/18 11:59 11:59 11:59 11:59 Intake Total 1720 / 1720 1890 / 1890 970 / 970 Output Total 1100 / 1100 1550 / 1550 1700 / 1700 Balance 620 / 620 340 / 340 -730 / -730 - Physical Exam Oriented: Person Eyes: Normal Ear: Normal Nose: Normal Throat: Exudate (WHITE) Respiratory: Diminished Cardiovascular: Normal. negative: Edema : Normal Auscultation: Bowel Sounds: Increased Tenderness: Normal Skin: Decreased Turgur Musculoskeletal: Tender, Motor Deficit Psychiatric: Anxiety Affect: Anxious Speech Pattern: Clear, Appropriate - Laboratory and Diagnostics Result Diagrams: 12/25/18 04:48 12/25/18 04:48 Labs: 12/23/18 13:59 Sputum - Expectorated Sputum Sputum Culture - Final 12/23/18 13:59 Sputum - Expectorated Sputum - Final 12/22/18 18:25 Blood Blood Culture - Preliminary 12/22/18 18:20 Blood Blood Culture - Preliminary 12/23/18 05:26 Urine,Clean Catch Urine Culture - Final Laboratory WBC 5.6 X10^3/uL (3.6-10.0) 12/25/18 04:48 RBC 3.49 X10^6/uL (4.7-6.0) L 12/25/18 04:48 Hgb 10.3 g/dL (13.5-18.0) L 12/25/18 04:48 Hct 31.3 % (42.0-54.0) L 12/25/18 04:48 MCV 89.7 fL (80.0-100.0) 12/25/18 04:48 MCH 29.6 pg (27.0-34.0) 12/25/18 04:48 MCHC 33.0 g/dL (33.0-35.0) 12/25/18 04:48 RDW 13.3 % (11.6-16.5) 12/25/18 04:48 Plt Count 191 X10^3/uL (150.0-450.0) 12/25/18 04:48 MPV 8.7 fL (7.4-11.0) 12/25/18 04:48 Neut % (Auto) 79.7 % (42.0-75.0) H 12/25/18 04:48 Lymph % (Auto) 15.7 % (21.0-51.0) L 12/25/18 04:48 [place] % (Auto) 2.8 % (0.0-13.0) 12/25/18 04:48 Eos % (Auto) 1.6 % (0.9-2.9) 12/25/18 04:48 Baso % (Auto) 0.2 % (0.2-1.0) 12/25/18 04:48 Neut # (Auto) 4.4 x10^3/uL (2.2-4.8) 12/25/18 04:48 Lymph # (Auto) 0.9 X10^3/uL (1.3-2.9) L 12/25/18 04:48 [place] # (Auto) 0.2 x10^3/uL (0.3-0.8) L 12/25/18 04:48 Eos # (Auto) 0.1 x10^3/uL (0.0-0.2) 12/25/18 04:48 Baso # (Auto) 0.0 X10^3/uL (0.0-0.1) 12/25/18 04:48 Absolute Nucleated RBC 0.0 /100WBC 12/25/18 04:48 Sodium 132 mmol/L (136-145) L 12/25/18 04:48 Corrected Sodium 138 mmol/L (136-145) 12/25/18 04:48 Potassium 5.2 mmol/L (3.5-5.1) H 12/25/18 04:48 Chloride 101 mmol/L (98-107) 12/25/18 04:48 Carbon Dioxide 19.0 mmol/L (21-32) L 12/25/18 04:48 BUN 23 mg/dL (7-18) H 12/25/18 04:48 Creatinine 2.52 mg/dL (0.70-1.30) H 12/25/18 04:48 Est GFR (MDRD) Af Amer 34 (>60) L 12/25/18 04:48 Est GFR (MDRD) Non-Af 28 (>60) L 12/25/18 04:48 Glucose 351 mg/dL (65-99) H 12/25/18 04:48 POC Glucose (mg/dL) 169 mg/dL (65-99) H 12/25/18 12:02 Calcium 8.4 mg/dL (8.5-10.1) L 12/25/18 04:48 Corrected Calcium 9.5 mg/dL (8.5-10.1) 12/25/18 04:48 Magnesium 1.8 mg/dL (1.7-2.9) 12/22/18 05:28 Total Bilirubin 0.90 mg/dL (0.2-1.0) 12/25/18 04:48 AST 75 Units/L (15-37) H 12/25/18 04:48 ALT 58 Units/L (12-78) 12/25/18 04:48 Alkaline Phosphatase 487 Units/L (46-116) H 12/25/18 04:48 Creatine Kinase 215 Units/L (39-308) 12/23/18 08:40 CK-MB (CK-2) 1.4 ng/mL (0-4.0) 12/22/18 05:28 CK/CKMB % Calc 0.4 % (<4) 12/22/18 05:28 Troponin I < 0.02 ng/mL (0-1.5) 12/22/18 05:28 Total Protein 7.3 g/dL (6.4-8.2) 12/25/18 04:48 Albumin 2.6 g/dL (3.4-5.0) L 12/25/18 04:48 Globulin 4.7 g/dL (2.5-4.5) H 12/25/18 04:48 Albumin/Globulin Ratio 0.6 Ratio (1.1-2.1) L 12/25/18 04:48 Specimen Type Clean catch urine 12/21/18 17:22 Urine Color Dark yellow (YELLOW) 12/21/18 17:22 Urine Appearance Clear (CLEAR) 12/21/18 17:22 Urine pH 5.0 (5.0 - 8.0) 12/21/18 17:22 Ur Specific [place] 1.015 (1.000-1.030) 12/21/18 17:22 Urine Protein 2+ (NEGATIVE) 12/21/18 17:22 Urine Glucose (UA) Negative (NEGATIVE) 12/21/18 17:22 Urine Ketones Negative (NEGATIVE) 12/21/18 17:22 Urine Occult Blood 1+ (NEGATIVE) 12/21/18 17:22 Urine Nitrite Negative (NEGATIVE) 12/21/18 17:22 Urine Bilirubin Negative (NEGATIVE) 12/21/18 17:22 Urine Urobilinogen Normal (NORMAL) 12/21/18 17:22 Ur Leukocyte Esterase Negative (NEGATIVE) 12/21/18 17:22 Urine RBC 0-2 /HPF (NONE SEEN) 12/21/18 17:22 Urine WBC None seen /HPF (NONE SEEN) 12/21/18 17:22 Ur Squamous Epith Cells Rare /HPF (NEGATIVE) 12/21/18 17:22 Amorphous Sediment Trace /HPF (NEGATIVE) 12/21/18 17:22 Urine Bacteria Trace /HPF (NEGATIVE) 12/21/18 17:22 Hyaline Casts Rare /LPF (NEGATIVE) 12/21/18 17:22 Urine Mucus Rare /HPF (NEGATIVE) 12/21/18 17:22 Ur Culture Indicated? No/not indicated 12/21/18 17:22
[2018-12-25] MEDS: ULTRAM PO PRN (19:24)
[2018-12-25] MEDS: NEURONTIN CAP 300 MG PO SCH (20:43)
[2018-12-25] MEDS: CRESTOR TAB 10 MG PO SCH (20:43)
[2018-12-25] MEDS: NS 1000 ML 1,000 ML IV SCH (21:25)
[2018-12-26 05:38] LABS: ALBUMIN 2.8 g/dL (3.4-5.0); CALCIUM 8.2 mg/dL (8.5-10.1); CARBON DIOXIDE 20.3 mmol/L (21-32); COR CA(FOR HYPOALB) 9.2 mg/dL (8.5-10.1); CREATININE 2.47 mg/dL (0.70-1.30); TOTAL PROTEIN 7.6 g/dL (6.4-8.2)
[2018-12-26 06:31] LABS: BASOPHILS % (AUTO) 0.1 % (0.2-1.0); EOSINOPHILS % (AUTO) 0.4 % (0.9-2.9); HEMATOCRIT 28.7 % (42.0-54.0); HEMOGLOBIN 9.5 g/dL (13.5-18.0); LYMPHOCYTES # (AUTO) 0.8 X10^3/uL (1.3-2.9); LYMPHOCYTES % (AUTO) 9.9 % (21.0-51.0); MEAN CORPUSCULAR HEMOGLOBIN 29.6 pg (27.0-34.0); MEAN CORPUSCULAR HGB CONC 33.1 g/dL (33.0-35.0); MEAN CORPUSCULAR VOLUME 89.4 fL (80.0-100.0); MEAN PLATELET VOLUME 8.7 fL (7.4-11.0); MONOCYTES # (AUTO) 0.4 x10^3/uL (0.3-0.8); MONOCYTES % (AUTO) 5.5 % (0.0-13.0); NEUTROPHILS # (AUTO) 6.4 x10^3/uL (2.2-4.8); NEUTROPHILS % (AUTO) 84.1 % (42.0-75.0); PLATELET COUNT 205 X10^3/uL (150.0-450.0); RED BLOOD COUNT 3.21 X10^6/uL (4.7-6.0); RED CELL DISTRIBUTION WIDTH 13.6 % (11.6-16.5); WHITE BLOOD COUNT 7.6 X10^3/uL (3.6-10.0)
[2018-12-26] MEDS: DARUNAVIR ETHANOLATE 800 MG PO SCH (09:49)
[2018-12-26] MEDS: PROTONIX INJ 40 MG VIAL IVP SCH ×2 (09:49→20:35)
[2018-12-26] MEDS: NYSTATIN SUSP PO SCH ×4 (09:49→20:35)
[2018-12-26] MEDS: ELIQUIS PO SCH ×2 (09:49→20:34)
[2018-12-26] MEDS: FLEXERIL TAB 10 MG PO SCH ×2 (09:49→20:34)
[2018-12-26] MEDS: DIFLUCAN 100 MG IV (MIX by PHARMACY)* 100 MG/50 ML BAG IV SCH (09:50)
[2018-12-26] MEDS: PATIENT'S HOME MEDICATION PO SCH ×2 (09:50→20:35)
[2018-12-26] MEDS: RITONAVIR 100 MG PO SCH (09:51)
[2018-12-26] MEDS: NS 1000 ML 1,000 ML IV SCH (12:38)
[2018-12-26] MEDS: HumuLIN R SC PRN ×2 (16:42→20:50)
[2018-12-26] MEDS: NEURONTIN CAP 300 MG PO SCH (20:34)
[2018-12-26] MEDS: CRESTOR TAB 10 MG PO SCH (20:35)
--- NOTE | 2018-12-26 21:19 | PCM.PROG ---
Progress Note - Progress Note for Day of Date of Exam: 12/26/18 - Subjective Subjective: WAS ADMITTED ON 12/21 WITH WEAKNESS, LEFT SIDED NECK PAIN, AND DYSPHAGIA. TODAY, HE IS ALERT AND ORIENTED, SITTING UP IN BED ON MORNING ROUNDS. HE CONTINUES WITH WEAKNESS, BUT DENIES NECK PAIN OR DIFFICULTY SWALLOWING. STAFF REPORTS THAT HE HAS BEEN EATING WELL. HIS VITALS THIS MORNING ARE 97.5-58-18-100%-122/73. LABS WERE OBTAINED. ABNORMAL LAB VALUES INCLUDE THE FOLLOWING: RBC 3.21, HGB 9.5, HCT 28.7, CARBON DIOXIDE 20.3, BUN 27, CREATININE 2.47, GLUCOSE 197, CALCIUM 8.2, AST 162, ALT 98, ALK PHOS 444, ALBUMIN 2.8, GLOBULIN 4.8. A C-SPINE MRI WAS OBTAINED ON 12/23 AND REVEALED MULTI-LEVEL DDD. HE HAS A HISTORY OF RENAL FAILURE, DIABETES, AND HIV. TODAY, WE WILL CONTINUE WITH DIFLUCAN FOR ORAL THRUSH, IV FLUIDS, AND CURRENT PLAN OF CARE. OTHERWISE, WE WILL FOLLOW UP WITH AM LABS AND CONTINUE TO MONITOR. - Past Medical Family Social History Past Med/Fam/Surg Hx: No changes since H&P Allergies: Allergies No Known Drug Allergies Allergy (Verified 12/21/18 16:00) - Review of Systems ROS: No change since H&P - Vital Signs and I&O's Vital Signs: Temperature 97.5 F Pulse Rate [Left Brachial] 67 Pulse Rate [Apical] 64 Pulse Rate 70 Respiratory Rate 20 Blood Pressure [Right Arm] 115/76 Blood Pressure [Left Arm] 87/51 Blood Pressure 129/74 O2 Sat by Pulse Oximetry 97 Intake and Output: Intake & Output 12/24/18 12/25/18 12/26/18 12/27/18 11:59 11:59 11:59 11:59 Intake Total 1890 / 1890 970 / 970 2644 / 2644 1045 / 1045 Output Total 1550 / 1550 1700 / 1700 1550 / 1550 700 / 700 Balance 340 / 340 -730 / -730 1094 / 1094 345 / 345 - Physical Exam Oriented: Person Eyes: Normal Ear: Normal Nose: Normal Throat: Exudate (WHITE) Respiratory: Diminished Cardiovascular: Normal. negative: Edema : Normal Auscultation: Bowel Sounds: Increased Tenderness: Normal Skin: Decreased Turgur Musculoskeletal: Tender, Motor Deficit Psychiatric: Anxiety Affect: Anxious Speech Pattern: Clear, Appropriate - Laboratory and Diagnostics Result Diagrams: 12/26/18 04:25 12/26/18 04:25 Labs: 12/23/18 13:59 Sputum - Expectorated Sputum Sputum Culture - Final 12/23/18 13:59 Sputum - Expectorated Sputum - Final 12/22/18 18:25 Blood Blood Culture - Preliminary 12/22/18 18:20 Blood Blood Culture - Preliminary 12/23/18 05:26 Urine,Clean Catch Urine Culture - Final Laboratory WBC 7.6 X10^3/uL (3.6-10.0) 12/26/18 04:25 RBC 3.21 X10^6/uL (4.7-6.0) L 12/26/18 04:25 Hgb 9.5 g/dL (13.5-18.0) L 12/26/18 04:25 Hct 28.7 % (42.0-54.0) L 12/26/18 04:25 MCV 89.4 fL (80.0-100.0) 12/26/18 04:25 MCH 29.6 pg (27.0-34.0) 12/26/18 04:25 MCHC 33.1 g/dL (33.0-35.0) 12/26/18 04:25 RDW 13.6 % (11.6-16.5) 12/26/18 04:25 Plt Count 205 X10^3/uL (150.0-450.0) 12/26/18 04:25 MPV 8.7 fL (7.4-11.0) 12/26/18 04:25 Neut % (Auto) 84.1 % (42.0-75.0) H 12/26/18 04:25 Lymph % (Auto) 9.9 % (21.0-51.0) L 12/26/18 04:25 [place] % (Auto) 5.5 % (0.0-13.0) 12/26/18 04:25 Eos % (Auto) 0.4 % (0.9-2.9) L 12/26/18 04:25 Baso % (Auto) 0.1 % (0.2-1.0) L 12/26/18 04:25 Neut # (Auto) 6.4 x10^3/uL (2.2-4.8) H 12/26/18 04:25 Lymph # (Auto) 0.8 X10^3/uL (1.3-2.9) L 12/26/18 04:25 [place] # (Auto) 0.4 x10^3/uL (0.3-0.8) 12/26/18 04:25 Eos # (Auto) 0.0 x10^3/uL (0.0-0.2) 12/26/18 04:25 Baso # (Auto) 0.0 X10^3/uL (0.0-0.1) 12/26/18 04:25 Absolute Nucleated RBC 0.1 /100WBC 12/26/18 04:25 Sodium 137 mmol/L (136-145) 12/26/18 04:25 Corrected Sodium 139 mmol/L (136-145) 12/26/18 04:25 Potassium 4.8 mmol/L (3.5-5.1) 12/26/18 04:25 Chloride 104 mmol/L (98-107) 12/26/18 04:25 Carbon Dioxide 20.3 mmol/L (21-32) L 12/26/18 04:25 BUN 27 mg/dL (7-18) H 12/26/18 04:25 Creatinine 2.47 mg/dL (0.70-1.30) H 12/26/18 04:25 Est GFR (MDRD) Af Amer 34 (>60) L 12/26/18 04:25 Est GFR (MDRD) Non-Af 28 (>60) L 12/26/18 04:25 Glucose 197 mg/dL (65-99) H 12/26/18 04:25 POC Glucose (mg/dL) 255 mg/dL (65-99) H 12/26/18 19:58 Calcium 8.2 mg/dL (8.5-10.1) L 12/26/18 04:25 Corrected Calcium 9.2 mg/dL (8.5-10.1) 12/26/18 04:25 Magnesium 1.8 mg/dL (1.7-2.9) 12/22/18 05:28 Total Bilirubin 0.40 mg/dL (0.2-1.0) 12/26/18 04:25 AST 162 Units/L (15-37) H 12/26/18 04:25 ALT 98 Units/L (12-78) H 12/26/18 04:25 Alkaline Phosphatase 444 Units/L (46-116) H 12/26/18 04:25 Creatine Kinase 215 Units/L (39-308) 12/23/18 08:40 CK-MB (CK-2) 1.4 ng/mL (0-4.0) 12/22/18 05:28 CK/CKMB % Calc 0.4 % (<4) 12/22/18 05:28 Troponin I < 0.02 ng/mL (0-1.5) 12/22/18 05:28 Total Protein 7.6 g/dL (6.4-8.2) 12/26/18 04:25 Albumin 2.8 g/dL (3.4-5.0) L 12/26/18 04:25 Globulin 4.8 g/dL (2.5-4.5) H 12/26/18 04:25 Albumin/Globulin Ratio 0.6 Ratio (1.1-2.1) L 12/26/18 04:25 Specimen Type Clean catch urine 12/21/18 17:22 Urine Color Dark yellow (YELLOW) 12/21/18 17:22 Urine Appearance Clear (CLEAR) 12/21/18 17:22 Urine pH 5.0 (5.0 - 8.0) 12/21/18 17:22 Ur Specific [place] 1.015 (1.000-1.030) 12/21/18 17:22 Urine Protein 2+ (NEGATIVE) 12/21/18 17:22 Urine Glucose (UA) Negative (NEGATIVE) 12/21/18 17:22 Urine Ketones Negative (NEGATIVE) 12/21/18 17:22 Urine Occult Blood 1+ (NEGATIVE) 12/21/18 17:22 Urine Nitrite Negative (NEGATIVE) 12/21/18 17:22 Urine Bilirubin Negative (NEGATIVE) 12/21/18 17:22 Urine Urobilinogen Normal (NORMAL) 12/21/18 17:22 Ur Leukocyte Esterase Negative (NEGATIVE) 12/21/18 17:22 Urine RBC 0-2 /HPF (NONE SEEN) 12/21/18 17:22 Urine WBC None seen /HPF (NONE SEEN) 12/21/18 17:22 Ur Squamous Epith Cells Rare /HPF (NEGATIVE) 12/21/18 17:22 Amorphous Sediment Trace /HPF (NEGATIVE) 12/21/18 17:22 Urine Bacteria Trace /HPF (NEGATIVE) 12/21/18 17:22 Hyaline Casts Rare /LPF (NEGATIVE) 12/21/18 17:22 Urine Mucus Rare /HPF (NEGATIVE) 12/21/18 17:22 Ur Culture Indicated? No/not indicated 12/21/18 17:22 Stool Description 6oz, brwn, formed 12/25/18 16:03 Stl Occult Blood (IFOB) Positive (NEGATIVE) A 12/25/18 16:03
[2018-12-27] MEDS: NS 1000 ML 1,000 ML IV SCH (01:50)
[2018-12-27 06:07] LABS: BASOPHILS % (AUTO) 0.2 % (0.2-1.0); EOSINOPHILS # (AUTO) 0.1 x10^3/uL (0.0-0.2); EOSINOPHILS % (AUTO) 1.6 % (0.9-2.9); HEMATOCRIT 27.5 % (42.0-54.0); HEMOGLOBIN 9.2 g/dL (13.5-18.0); LYMPHOCYTES # (AUTO) 1.1 X10^3/uL (1.3-2.9); MEAN CORPUSCULAR HEMOGLOBIN 29.6 pg (27.0-34.0); MEAN CORPUSCULAR HGB CONC 33.5 g/dL (33.0-35.0); MEAN CORPUSCULAR VOLUME 88.6 fL (80.0-100.0); MEAN PLATELET VOLUME 8.7 fL (7.4-11.0); MONOCYTES # (AUTO) 0.4 x10^3/uL (0.3-0.8); MONOCYTES % (AUTO) 6.1 % (0.0-13.0); NEUTROPHILS % (AUTO) 76.1 % (42.0-75.0); PLATELET COUNT 222 X10^3/uL (150.0-450.0); RED BLOOD COUNT 3.11 X10^6/uL (4.7-6.0); RED CELL DISTRIBUTION WIDTH 13.2 % (11.6-16.5); WHITE BLOOD COUNT 6.6 X10^3/uL (3.6-10.0)
[2018-12-27 06:38] LABS: ALBUMIN 2.5 g/dL (3.4-5.0); CALCIUM 7.9 mg/dL (8.5-10.1); CARBON DIOXIDE 19.9 mmol/L (21-32); COR CA(FOR HYPOALB) 9.1 mg/dL (8.5-10.1); CREATININE 2.16 mg/dL (0.70-1.30); TOTAL PROTEIN 6.7 g/dL (6.4-8.2)
[2018-12-27] MEDS: PROTONIX INJ 40 MG VIAL IVP SCH (09:15)
[2018-12-27] MEDS: FLEXERIL TAB 10 MG PO SCH (09:15)
[2018-12-27] MEDS: NYSTATIN SUSP PO SCH ×2 (09:15→13:44)
[2018-12-27] MEDS: ELIQUIS PO SCH (09:15)
[2018-12-27] MEDS: RITONAVIR 100 MG PO SCH (09:17)
[2018-12-27] MEDS: DARUNAVIR ETHANOLATE 800 MG PO SCH (09:17)
[2018-12-27] MEDS: PATIENT'S HOME MEDICATION PO SCH (09:18)
[2018-12-27] MEDS: DIFLUCAN 100 MG IV (MIX by PHARMACY)* 100 MG/50 ML BAG IV SCH (09:18)
[2018-12-27] MEDS: HumuLIN R SC PRN (11:08)
[2018-12-27 16:06] VITALS: BP 110/69
== END 2018-12-27 16:00 | disposition home health service (06) | DRG 683 ==
LOC: MED/SURG 14:49 → ER 14:49 → MED/SURG 18:43
PROVIDERS: ADMIT Internal Medicine; ATTEND Internal Medicine
DX: R55 Syncope and collapse; R94.31 Abnormal electrocardiogram [ECG] [EKG]; B37.81 Candidal esophagitis; B37.0 Candidal stomatitis; R13.11 Dysphagia, oral phase; N17.8 Other acute kidney failure; E11.649 Type 2 diabetes mellitus with hypoglycemia without coma; E87.1 Hypo-osmolality and hyponatremia; I10 Essential (primary) hypertension; M54.2 Cervicalgia; E86.0 Dehydration; R41.82 Altered mental status, unspecified; E11.42 Type 2 diabetes mellitus with diabetic polyneuropathy; B20 Human immunodeficiency virus [HIV] disease; R53.1 Weakness
CPT/HCPCS: 36415; 70450; 71010; 71045; 72141; 80053; 81001; 82270; 82550; 82553; 82947; 83735; 84484; 85025; 87040; 87070; 87086; 87205; 92610; 93005; 93880; 94640; 94760; 96365; 99284; A4222; C9113; G0378; J1450; J1815; J2920; J3490; J7030; J7042

== ENCOUNTER 2021-02-18 16:32 | Inpatient (IN) ==
[2021-02-18] MEDS ORDERED: ZOFRAN INJ 4 MG VIAL IVP PRN (17:38)
--- NOTE | 2021-02-18 17:45 | DR.H&P ---
H&P - History & Physical for Day of: H&P Date: 02/18/21 - Chief Complaint Chief Complaint: WEAKNESS, 8LBS WEIGHT LOSS IN 10 DAYS, SALAS, "I THINK I HAVE PNEUMONIA" - History of Present Illness History of Present Illness: PT IS 65 BM DIRECT ADMIT FROM DR GOOD OFFICE TRANSPORTED PER EMS DUE TO HYPOTENSION AND WEAKNESS IN THE OFFICE. PT CO 3 ER VISITS IN THE PAST 3 WEEKS. PT HAS TESTED NEGATIVE FOR COVID BUT REPORTS SALAS AND WEAKNESS. 8LBS WEIGHT LOSS SINCE LAST ER VISIT. PT CO HURTING IN RIGHT SIDE, HOLDING HIS RIGHT LATERAL RIB CAGE. PT BP 80/50 IN OFFICE. PT HAS PMH OF HIV, HTN, DM, PE. PT REPORTS HE HAD BOTH MODERNA VACCINES AND HE HAS BEEN TAKING ANTIVIRAL MEDICATION. PT ADMITTED FOR TREATMENT OF ACUTE ILLNESS. - Past Medical History Past Medical History: Anemia, Anxiety, Arthritis, Diabetes Additional Medical History: HIV - Past Surgical History Surgical History: No History - Family History Family Medical History: Diabetes Mellitus, Cancer, [place], Coronary Artery Disease, Hypertension - Social History Does patient currently use any type of tobacco product: No Have you used tobacco products in the last 12 months: No Type of Tobacco Use: None Does any household member use tobacco: No Alcohol Use: None Drug Use: Marijuana Risks, benefits, and alternatives of opioids discussed: No Prescription drug monitoring program results: PDMP reviewed and no concerns identified - Medications Home Medications: No Known Drug Allergies Allergy (Verified 02/04/21 15:32) - Review of Systems Constitutional: Weakness, Malaise Eyes: No Symptoms Reported ENT: No Symptoms Reported Respiratory: Shortness of Breath, SOB with Excertion Cardiovascular: Light Headedness Gastrointestinal: Nausea, Abdominal Pain Genitourinary: No Symptoms Reported Musculoskeletal: Back Pain, Neck Pain Skin: No Symptoms Reported Neurological: Weakness, Other (DIZZINESS) - Physical Exam Vital Signs: Blood Pressure [Right Arm] 99/60 Blood Pressure [Left Arm] 87/51 Blood Pressure 99/67 Oriented: Normal Eyes: Normal Ear: Normal Nose: Normal Throat: Dry Respiratory: Diminished Throughout Cardiovascular: Normal : Normal Auscultation: Bowel Sounds: Normal Palpation: Normal Tenderness: RUQ Skin: Decreased Turgur Musculoskeletal: Back:Thoracic, Back:Lumbar Psychiatric: Anxiety Affect: Anxious Speech Pattern: Clear, Appropriate - Assessment/Plan (1) SALAS (dyspnea on exertion) Status: Acute Plan: ADMIT, ICU, BP CONTROL. IV HYDRATION, STRICT I&OS, CARIDAC MONITORING. BLOOD SPUTUM AND URINE CULTURE ON ADMISSION. LACTIC ACID AND AMMONIA LEVEL ON ADMISSION. IV ROCEPHIN, VERIFY HOME MEDICATION, SUPPLEMENTAL O2 WITH CXR ON ADMISSION, STOOL STUDIES (2) COPD (chronic obstructive pulmonary disease) Status: Acute (3) Unexplained weight loss Status: Acute (4) Dehydration Status: Acute (5) Diabetes mellitus Qualifiers: Diabetes mellitus type: type 2 Diabetes mellitus complication status: with neurologic complications Diabetes mellitus complication detail: with polyneuropathy Qualified Code(s): E11.42 - Type 2 diabetes mellitus with diabetic polyneuropathy Status: Chronic (6) Human immunodeficiency virus disease Status: Chronic (7) Weakness Status: Acute - Allergies Allergies/Adverse Reactions: Allergies Allergy/AdvReac Type Severity Reaction Status Date / Time No Known Drug Allergies Allergy Verified 02/04/21 15:32
[2021-02-18 18:25] VITALS: BMI 20.5
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
[2021-02-18] MEDS ORDERED: SALINE 3% 15 ML NEB TX ONE (18:52)
[2021-02-18 19:06] LABS: BASOPHILS # (AUTO) 0.1 X10^3/uL (0.0-0.1); BASOPHILS % (AUTO) 1.3 % (0.2-1.0); EOSINOPHILS # (AUTO) 0.5 x10^3/uL (0.0-0.2); EOSINOPHILS % (AUTO) 13.3 % (0.9-2.9); HEMATOCRIT 33.8 % (42.0-54.0); HEMOGLOBIN 11.2 g/dL (13.5-18.0); LYMPHOCYTES # (AUTO) 1.5 X10^3/uL (1.3-2.9); LYMPHOCYTES % (AUTO) 36.1 % (21.0-51.0); MEAN CORPUSCULAR HEMOGLOBIN 30.6 pg (27.0-34.0); MEAN CORPUSCULAR HGB CONC 33.3 g/dL (33.0-35.0); MEAN CORPUSCULAR VOLUME 92.1 fL (80.0-100.0); MEAN PLATELET VOLUME 8.8 fL (7.4-11.0); MONOCYTES # (AUTO) 0.6 x10^3/uL (0.3-0.8); MONOCYTES % (AUTO) 15.6 % (0.0-13.0); NEUTROPHILS # (AUTO) 1.4 x10^3/uL (2.2-4.8); NEUTROPHILS % (AUTO) 33.7 % (42.0-75.0); PLATELET COUNT 213 X10^3/uL (150.0-450.0); RED BLOOD COUNT 3.67 X10^6/uL (4.7-6.0); RED CELL DISTRIBUTION WIDTH 13.3 % (11.6-16.5); WHITE BLOOD COUNT 4.1 X10^3/uL (3.6-10.0)
[2021-02-18] MEDS ORDERED: SALINE 3% 15 ML NEB TX NEB ONE (19:07)
[2021-02-18 19:18] LABS: LACTIC ACID 0.7 mmol/L (0.4-2.0)
[2021-02-18 19:24] LABS: ALANINE AMINOTRANSFERASE 19 Units/L (12-78); ALKALINE PHOSPHATASE 100 Units/L (46-116); ASPARTATE AMINO TRANSFERASE 38 Units/L (15-37); BLOOD UREA NITROGEN 16 mg/dL (7-18); CALCIUM 8.8 mg/dL (8.5-10.1); CARBON DIOXIDE 15.4 mmol/L (21-32); CKMB % 2.3 % (<4); COR CA(FOR HYPOALB) 9.6 mg/dL (8.5-10.1); CREATINE KINASE 43 Units/L (39-308); CREATINE KINASE MB < 1.0 ng/mL (0-4.0); MAGNESIUM 2.2 mg/dL (1.7-2.9); TOTAL PROTEIN 7.6 g/dL (6.4-8.2); TROPONIN I < 0.02 ng/mL (0-1.5); eGFR NON BLACK RACES 43 (>60)
[2021-02-18 19:25] LABS: AMMONIA < 10 umol/L (11-32)
[2021-02-18] MEDS: ROCEPHIN VIAL 1 GRAM 1 G in NS 100 ML IV + SPIKE MINIBAG* 100 ML IV SCH (19:36)
[2021-02-18 19:47] LABS: SODIUM 136 mmol/L (136-145)
[2021-02-18 19:48] LABS: CHLORIDE 103 mmol/L (98-107)
[2021-02-18 19:51] LABS: IRON 25 ug/dL (50-175)
[2021-02-18] MEDS: TYLENOL 325 MG TAB PO PRN (19:58)
[2021-02-18] MEDS: SOLU-Medrol 40 MG VIAL IVP SCH ×2 (20:31→21:06)
[2021-02-18] MEDS: NS 1000 ML 1,000 ML IV SCH (20:36)
[2021-02-18] MEDS: DUONEB 0.5 MG/3 MG (3 mL) NEB SCH (20:59)
[2021-02-18] MEDS ORDERED: RALTEGRAVIR 400 MG PO SCH (21:00)
[2021-02-18] MEDS: NEURONTIN CAP 300 MG PO SCH (21:04)
[2021-02-18] MEDS: ELIQUIS PO SCH (21:04)
[2021-02-18] MEDS: CRESTOR TAB 10 MG PO SCH (21:04)
[2021-02-18] MEDS: SNACK - Diabetic Appropriate PO SCH (21:36)
[2021-02-19] MEDS ORDERED: NS 1000 ML 1,000 ML IV ONE (00:45)
[2021-02-19] MEDS: NS 1000 ML 1,000 ML IV SCH ×2 (03:00→11:14)
[2021-02-19 04:52] LABS: BILIRUBIN,URINE NEGATIVE (NEGATIVE); BLOOD/HEMOGLOBIN,URINE NEGATIVE (NEGATIVE); GLUCOSE, URINE 1+ (NEGATIVE); KETONES,URINE 2+ (NEGATIVE); LEUKOCYTE ESTERASE ,URINE NEGATIVE (NEGATIVE); NITRITES,URINE NEGATIVE (NEGATIVE); PROTEIN,URINE 1+ (NEGATIVE); UROBILINOGEN,URINE NORMAL (NORMAL)
[2021-02-19 05:07] LABS: APPEARANCE,URINE CLEAR (CLEAR); BACTERIA,URINE NEGATIVE /HPF (NEGATIVE); COLOR,URINE YELLOW (YELLOW); RBC,URINE NONE SEEN /HPF (0-3); SQUAMOUS EPITHELIAL CELL,UR RARE /HPF (NEGATIVE)
[2021-02-19] MEDS: SOLU-Medrol 40 MG VIAL IVP SCH ×3 (05:10→21:02)
[2021-02-19] MEDS: NEURONTIN CAP 300 MG PO SCH ×3 (05:10→21:03)
[2021-02-19 05:19] LABS: BASOPHILS % (AUTO) 0.8 % (0.2-1.0); EOSINOPHILS % (AUTO) 0.2 % (0.9-2.9); HEMATOCRIT 32.4 % (42.0-54.0); HEMOGLOBIN 10.8 g/dL (13.5-18.0); LYMPHOCYTES # (AUTO) 0.5 X10^3/uL (1.3-2.9); LYMPHOCYTES % (AUTO) 21.6 % (21.0-51.0); MEAN CORPUSCULAR HEMOGLOBIN 30.8 pg (27.0-34.0); MEAN CORPUSCULAR HGB CONC 33.3 g/dL (33.0-35.0); MEAN CORPUSCULAR VOLUME 92.6 fL (80.0-100.0); MEAN PLATELET VOLUME 9.7 fL (7.4-11.0); MONOCYTES # (AUTO) 0 x10^3/uL (0.3-0.8); MONOCYTES % (AUTO) 2.1 % (0.0-13.0); NEUTROPHILS # (AUTO) 1.7 x10^3/uL (2.2-4.8); NEUTROPHILS % (AUTO) 75.3 % (42.0-75.0); PLATELET COUNT 227 X10^3/uL (150.0-450.0); RED BLOOD COUNT 3.49 X10^6/uL (4.7-6.0); RED CELL DISTRIBUTION WIDTH 13.5 % (11.6-16.5); WHITE BLOOD COUNT 2.3 X10^3/uL (3.6-10.0)
[2021-02-19] MEDS: HumuLIN R SUBCUT PRN ×3 (05:21→21:03)
[2021-02-19 05:31] LABS: ALBUMIN 2.8 g/dL (3.4-5.0); CARBON DIOXIDE 16.7 mmol/L (21-32); CREATININE 1.66 mg/dL (0.70-1.30); MAGNESIUM 2.1 mg/dL (1.7-2.9); TOTAL PROTEIN 7.4 g/dL (6.4-8.2)
[2021-02-19 05:58] LABS: BAND NEUTROPHILS % 3 % (0-10); PLATELET MORPHOLOGY COMMENT NORMAL (NORMAL)
[2021-02-19] MEDS: ELIQUIS PO SCH ×2 (08:07→21:03)
[2021-02-19] MEDS: RITONAVIR 100 MG PO SCH (08:08)
[2021-02-19] MEDS: ROCEPHIN VIAL 1 GRAM 1 G in NS 100 ML IV + SPIKE MINIBAG* 100 ML IV SCH (08:08)
[2021-02-19] MEDS: DUONEB 0.5 MG/3 MG (3 mL) NEB SCH ×4 (09:31→21:38)
[2021-02-19] MEDS ORDERED: COMBIVIR PO SCH (10:00)
[2021-02-19] MEDS: PATIENT'S HOME MEDICATION PO SCH (10:53)
[2021-02-19] MEDS: RALTEGRAVIR 400 MG PO SCH (13:51)
[2021-02-19] MEDS: CRESTOR TAB 10 MG PO SCH (21:02)
[2021-02-19] MEDS: TYLENOL 325 MG TAB PO PRN (21:02)
[2021-02-19] MEDS: SNACK - Diabetic Appropriate PO SCH (21:04)
[2021-02-19] MEDS: LEVAQUIN PREMIX IV 750 MG 750 MG/150 ML BAG IV SCH (21:11)
[2021-02-20] MEDS: HumuLIN R SUBCUT PRN ×3 (01:26→21:32)
[2021-02-20] MEDS: NS 1000 ML 1,000 ML IV SCH ×3 (01:29→15:20)
[2021-02-20] MEDS: NEURONTIN CAP 300 MG PO SCH ×3 (05:21→21:30)
[2021-02-20] MEDS: SOLU-Medrol 40 MG VIAL IVP SCH (05:22)
[2021-02-20 06:42] LABS: BASOPHILS % (AUTO) 0.1 % (0.2-1.0); HEMATOCRIT 28.6 % (42.0-54.0); HEMOGLOBIN 9.6 g/dL (13.5-18.0); LYMPHOCYTES # (AUTO) 0.5 X10^3/uL (1.3-2.9); LYMPHOCYTES % (AUTO) 12.5 % (21.0-51.0); MEAN CORPUSCULAR HEMOGLOBIN 30.7 pg (27.0-34.0); MEAN CORPUSCULAR HGB CONC 33.4 g/dL (33.0-35.0); MEAN PLATELET VOLUME 9.1 fL (7.4-11.0); MONOCYTES # (AUTO) 0.2 x10^3/uL (0.3-0.8); MONOCYTES % (AUTO) 4.7 % (0.0-13.0); NEUTROPHILS # (AUTO) 3.6 x10^3/uL (2.2-4.8); NEUTROPHILS % (AUTO) 82.7 % (42.0-75.0); PLATELET COUNT 253 X10^3/uL (150.0-450.0); RED BLOOD COUNT 3.11 X10^6/uL (4.7-6.0); RED CELL DISTRIBUTION WIDTH 13.3 % (11.6-16.5); WHITE BLOOD COUNT 4.4 X10^3/uL (3.6-10.0)
[2021-02-20 07:07] LABS: ALBUMIN 2.8 g/dL (3.4-5.0); CALCIUM 8.4 mg/dL (8.5-10.1); CARBON DIOXIDE 19.6 mmol/L (21-32); COR CA(FOR HYPOALB) 9.4 mg/dL (8.5-10.1); CREATININE 1.78 mg/dL (0.70-1.30)
[2021-02-20] MEDS: ROCEPHIN VIAL 1 GRAM 1 G in NS 100 ML IV + SPIKE MINIBAG* 100 ML IV SCH (08:53)
[2021-02-20] MEDS: ELIQUIS PO SCH ×2 (08:53→21:30)
[2021-02-20] MEDS: RALTEGRAVIR 400 MG PO SCH (08:54)
[2021-02-20] MEDS: PATIENT'S HOME MEDICATION PO SCH (08:54)
[2021-02-20] MEDS: RITONAVIR 100 MG PO SCH (08:56)
[2021-02-20] MEDS: DUONEB 0.5 MG/3 MG (3 mL) NEB SCH ×4 (09:28→20:50)
[2021-02-20] MEDS ORDERED: BIAXIN TAB 500 MG PO ONE (21:26)
[2021-02-20] MEDS: SNACK - Diabetic Appropriate PO SCH (21:28)
[2021-02-20] MEDS: CRESTOR TAB 10 MG PO SCH (21:29)
[2021-02-20] MEDS: AMOXIL CAP 500 MG PO SCH (21:29)
[2021-02-20] MEDS: BIAXIN TAB 500 MG PO SCH (21:33)
[2021-02-21 05:02] LABS: BASOPHILS % (AUTO) 0.3 % (0.2-1.0); HEMATOCRIT 27.2 % (42.0-54.0); HEMOGLOBIN 9.2 g/dL (13.5-18.0); LYMPHOCYTES # (AUTO) 0.6 X10^3/uL (1.3-2.9); LYMPHOCYTES % (AUTO) 8.2 % (21.0-51.0); MEAN CORPUSCULAR HEMOGLOBIN 30.7 pg (27.0-34.0); MEAN CORPUSCULAR HGB CONC 33.7 g/dL (33.0-35.0); MEAN CORPUSCULAR VOLUME 91.1 fL (80.0-100.0); MEAN PLATELET VOLUME 9.5 fL (7.4-11.0); MONOCYTES # (AUTO) 0.3 x10^3/uL (0.3-0.8); MONOCYTES % (AUTO) 3.6 % (0.0-13.0); NEUTROPHILS # (AUTO) 6.3 x10^3/uL (2.2-4.8); NEUTROPHILS % (AUTO) 87.9 % (42.0-75.0); PLATELET COUNT 281 X10^3/uL (150.0-450.0); RED BLOOD COUNT 2.99 X10^6/uL (4.7-6.0); RED CELL DISTRIBUTION WIDTH 13.4 % (11.6-16.5); WHITE BLOOD COUNT 7.2 X10^3/uL (3.6-10.0)
[2021-02-21 05:08] LABS: ALBUMIN 2.7 g/dL (3.4-5.0); CALCIUM 8.2 mg/dL (8.5-10.1); CARBON DIOXIDE 15.8 mmol/L (21-32); COR CA(FOR HYPOALB) 9.2 mg/dL (8.5-10.1); CREATININE 1.81 mg/dL (0.70-1.30); TOTAL PROTEIN 6.5 g/dL (6.4-8.2)
[2021-02-21] MEDS: HumuLIN R SUBCUT PRN ×3 (05:40→21:57)
[2021-02-21] MEDS: NS 1000 ML 1,000 ML IV SCH (05:40)
[2021-02-21] MEDS: NEURONTIN CAP 300 MG PO SCH ×3 (05:40→21:52)
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
[2021-02-21] MEDS: DUONEB 0.5 MG/3 MG (3 mL) NEB SCH ×4 (09:17→20:12)
[2021-02-21] MEDS: AMOXIL CAP 500 MG PO SCH ×2 (09:28→21:55)
[2021-02-21] MEDS: ELIQUIS PO SCH ×2 (09:29→21:56)
[2021-02-21] MEDS: BIAXIN TAB 500 MG PO SCH ×2 (09:29→21:55)
[2021-02-21] MEDS: HEMOCYTE-PLUS PO SCH (09:30)
[2021-02-21] MEDS: DIFLUCAN 100 MG IV (MIX by PHARMACY)* 100 MG/50 ML BAG IV SCH (09:30)
[2021-02-21] MEDS: RITONAVIR 100 MG PO SCH (09:31)
[2021-02-21] MEDS: PATIENT'S HOME MEDICATION PO SCH (09:31)
[2021-02-21] MEDS: RALTEGRAVIR 400 MG PO SCH (09:31)
[2021-02-21 16:29] LABS: ABG BASE EXCESS -10.7 mmol/L (-2.0-2.0)
[2021-02-21 16:30] LABS: ABG ALLEN TEST POS; ABG HCO3 12.4 mmol/L (22-26)
[2021-02-21 18:08] LABS: ALANINE AMINOTRANSFERASE 20 Units/L (12-78); ALKALINE PHOSPHATASE 84 Units/L (46-116); ASPARTATE AMINO TRANSFERASE 25 Units/L (15-37); BLOOD UREA NITROGEN 8 mg/dL (7-18); CARBON DIOXIDE 15.8 mmol/L (21-32); CHLORIDE 109 mmol/L (98-107); COR CA(FOR HYPOALB) 8.8 mg/dL (8.5-10.1); COR NA(FOR HYPERGLY) 142 mmol/L (136-145); CREATININE 2.07 mg/dL (0.70-1.30); SODIUM 140 mmol/L (136-145); TOTAL PROTEIN 7.1 g/dL (6.4-8.2); eGFR NON BLACK RACES 35 (>60)
[2021-02-21 18:16] LABS: SERUM ACETONE NEGATIVE (NEGATIVE)
[2021-02-21] MEDS: TYLENOL 325 MG TAB PO PRN (19:31)
[2021-02-21] MEDS: SNACK - Diabetic Appropriate PO SCH (21:54)
[2021-02-21] MEDS: CRESTOR TAB 10 MG PO SCH (21:56)
[2021-02-21] MEDS: LEVAQUIN PREMIX IV 750 MG 750 MG/150 ML BAG IV SCH (21:56)
[2021-02-22 05:06] LABS: BASOPHILS % (AUTO) 0.1 % (0.2-1.0); HEMATOCRIT 26.8 % (42.0-54.0); HEMOGLOBIN 9.2 g/dL (13.5-18.0); LYMPHOCYTES # (AUTO) 0.8 X10^3/uL (1.3-2.9); LYMPHOCYTES % (AUTO) 11.5 % (21.0-51.0); MEAN CORPUSCULAR HGB CONC 34.3 g/dL (33.0-35.0); MEAN CORPUSCULAR VOLUME 90.5 fL (80.0-100.0); MEAN PLATELET VOLUME 9.1 fL (7.4-11.0); MONOCYTES # (AUTO) 0.6 x10^3/uL (0.3-0.8); MONOCYTES % (AUTO) 9.5 % (0.0-13.0); NEUTROPHILS # (AUTO) 5.2 x10^3/uL (2.2-4.8); NEUTROPHILS % (AUTO) 78.9 % (42.0-75.0); PLATELET COUNT 286 X10^3/uL (150.0-450.0); RED BLOOD COUNT 2.96 X10^6/uL (4.7-6.0); RED CELL DISTRIBUTION WIDTH 13.6 % (11.6-16.5); WHITE BLOOD COUNT 6.5 X10^3/uL (3.6-10.0)
[2021-02-22 05:20] LABS: ALBUMIN 2.7 g/dL (3.4-5.0); CALCIUM 7.9 mg/dL (8.5-10.1); CARBON DIOXIDE 16.7 mmol/L (21-32); COR CA(FOR HYPOALB) 8.9 mg/dL (8.5-10.1); CREATININE 1.71 mg/dL (0.70-1.30); TOTAL PROTEIN 6.6 g/dL (6.4-8.2)
[2021-02-22] MEDS ORDERED: K-RIDER 10 MEQ/NS 100 ML 10 MEQ/100 ML BAG IV PRN (05:56)
[2021-02-22] MEDS ORDERED: POTASSIUM CHL 40 MEQ/NS 0.45% 500 ML IV PRN (05:56)
[2021-02-22] MEDS ORDERED: K-DUR TAB 20 MEQ PO PRN (05:56)
[2021-02-22] MEDS ORDERED: KLOR-CON PO PRN (05:56)
[2021-02-22] MEDS ORDERED: POTASSIUM CHLORIDE LIQ 20 MEQ UDC PO PRN (05:56)
[2021-02-22] MEDS ORDERED: POTASSIUM CHL 60 MEQ/NS 0.45% 500 ML IV PRN (05:56)
[2021-02-22] MEDS ORDERED: MICRO K EXTEN CAP 10 MEQ PO PRN (05:56)
[2021-02-22] MEDS: NEURONTIN CAP 300 MG PO SCH ×3 (06:58→21:18)
[2021-02-22] MEDS: DUONEB 0.5 MG/3 MG (3 mL) NEB SCH ×4 (09:07→21:09)
[2021-02-22] MEDS: NS 1000 ML 1,000 ML IV SCH ×2 (09:09→09:11)
[2021-02-22] MEDS: HEMOCYTE-PLUS PO SCH (09:10)
[2021-02-22] MEDS: BIAXIN TAB 500 MG PO SCH ×2 (09:10→21:18)
[2021-02-22] MEDS: AMOXIL CAP 500 MG PO SCH ×2 (09:10→21:17)
[2021-02-22] MEDS: ELIQUIS PO SCH ×2 (09:10→21:18)
[2021-02-22] MEDS: PATIENT'S HOME MEDICATION PO SCH (09:11)
[2021-02-22] MEDS: DIFLUCAN 100 MG IV (MIX by PHARMACY)* 100 MG/50 ML BAG IV SCH (09:11)
[2021-02-22] MEDS: RITONAVIR 100 MG PO SCH (09:11)
[2021-02-22] MEDS: RALTEGRAVIR 400 MG PO SCH (09:11)
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
[2021-02-22] MEDS: MAGNESIUM SULFATE 1 GRAM/100 mL PREMIX 1 GM/100 ML BAG IV PRN ×2 (20:30→21:20)
[2021-02-22] MEDS: SNACK - Diabetic Appropriate PO SCH (21:08)
[2021-02-22] MEDS: CRESTOR TAB 10 MG PO SCH (21:18)
[2021-02-22] MEDS: HumuLIN R SUBCUT PRN (21:19)
[2021-02-23 05:31] LABS: BASOPHILS % (AUTO) 0.3 % (0.2-1.0); EOSINOPHILS # (AUTO) 0.2 x10^3/uL (0.0-0.2); EOSINOPHILS % (AUTO) 2.5 % (0.9-2.9); HEMATOCRIT 29.4 % (42.0-54.0); LYMPHOCYTES # (AUTO) 1.4 X10^3/uL (1.3-2.9); MEAN CORPUSCULAR HEMOGLOBIN 30.5 pg (27.0-34.0); MEAN CORPUSCULAR HGB CONC 33.9 g/dL (33.0-35.0); MEAN CORPUSCULAR VOLUME 89.9 fL (80.0-100.0); MONOCYTES # (AUTO) 0.8 x10^3/uL (0.3-0.8); MONOCYTES % (AUTO) 12.3 % (0.0-13.0); NEUTROPHILS # (AUTO) 4.1 x10^3/uL (2.2-4.8); NEUTROPHILS % (AUTO) 63.9 % (42.0-75.0); PLATELET COUNT 314 X10^3/uL (150.0-450.0); RED BLOOD COUNT 3.27 X10^6/uL (4.7-6.0); RED CELL DISTRIBUTION WIDTH 13.6 % (11.6-16.5); WHITE BLOOD COUNT 6.5 X10^3/uL (3.6-10.0)
[2021-02-23 05:44] LABS: ALANINE AMINOTRANSFERASE 23 Units/L (12-78); ALBUMIN 2.7 g/dL (3.4-5.0); ALKALINE PHOSPHATASE 76 Units/L (46-116); ASPARTATE AMINO TRANSFERASE 30 Units/L (15-37); BLOOD UREA NITROGEN 8 mg/dL (7-18); CALCIUM 8.1 mg/dL (8.5-10.1); CARBON DIOXIDE 16.7 mmol/L (21-32); CHLORIDE 110 mmol/L (98-107); COR CA(FOR HYPOALB) 9.1 mg/dL (8.5-10.1); CREATININE 1.46 mg/dL (0.70-1.30); MAGNESIUM 2.3 mg/dL (1.7-2.9); SODIUM 140 mmol/L (136-145); TOTAL PROTEIN 6.4 g/dL (6.4-8.2); eGFR NON BLACK RACES 52 (>60)
[2021-02-23] MEDS: NEURONTIN CAP 300 MG PO SCH ×3 (06:16→21:28)
[2021-02-23] MEDS: ELIQUIS PO SCH ×2 (08:46→20:12)
[2021-02-23] MEDS: AMOXIL CAP 500 MG PO SCH ×2 (08:46→20:11)
[2021-02-23] MEDS: BIAXIN TAB 500 MG PO SCH ×2 (08:47→20:12)
[2021-02-23] MEDS: HEMOCYTE-PLUS PO SCH (08:47)
[2021-02-23] MEDS: RALTEGRAVIR 400 MG PO SCH (08:48)
[2021-02-23] MEDS: PATIENT'S HOME MEDICATION PO SCH (08:49)
[2021-02-23] MEDS: RITONAVIR 100 MG PO SCH (08:49)
[2021-02-23] MEDS: DIFLUCAN 100 MG IV (MIX by PHARMACY)* 100 MG/50 ML BAG IV SCH (08:50)
[2021-02-23] MEDS: DUONEB 0.5 MG/3 MG (3 mL) NEB SCH ×4 (09:51→20:30)
--- NOTE | 2021-02-23 11:20 | PCM.PROG ---
Progress Note Progress Note for Day of Date of Exam: 02/23/21 Subjective Subjective: Patient seen at bedside, no acute events. He states he feels better today. His appetite is improving, he has been drinking Ensure. Denies N/V/D. He has been ambulating in the room. Labs: Hgb 10 WBC 6.5 CO2 16.7 BUn/Cr: 8/1.46 Plan: continue IV levaquin for LL pneumonia, continue H Pylori triple therapy treatment. Will add PPI. PT/OT as tolerated. Continue gentle hydration. Monitor Am labs and imaging. Past Medical Family Social History Past Med/Fam/Surg Hx: No changes since H&P Allergies: Allergies No Known Drug Allergies Allergy (Verified 02/04/21 15:32) Review of Systems ROS: No change since H&P Vital Signs and I&O's Vital Signs: Temperature 99.0 F Pulse Rate [Apical] 89 Pulse Rate 86 Respiratory Rate 20 Blood Pressure [Right Arm] 151/94 Blood Pressure [Left Arm] 119/66 Blood Pressure 99/67 O2 Sat by Pulse Oximetry 97 Intake and Output: Intake & Output 02/20/21 02/21/21 02/22/21 02/23/21 23:59 23:59 23:59 23:59 Intake Total 2558 / 2558 4582 / 4582 4775 / 4775 784 / 784 Output Total 550 / 550 1050 / 1050 1800 / 1800 775 / 775 Balance 2007 3532 / 3532 2975 / 2975 Physical Exam Oriented: Normal Eyes: Normal Ear: Normal Nose: Normal Throat: Normal and Dry Respiratory: Generalized and Diminished Cardiovascular: Normal Auscultation: Bowel Sounds: Normal Tenderness: Normal Skin: Decreased Turgur Musculoskeletal: Back:Thoracic and Back:Lumbar Psychiatric: Normal Mood Description: Calm Affect: Normal Speech Pattern: Clear and Appropriate Laboratory and Diagnostics Result Diagrams: 02/23/21 05:00 02/23/21 05:00 Labs: 02/19/21 18:25 Blood Blood Culture - Preliminary 02/19/21 18:07 Blood Blood Culture - Preliminary 02/18/21 04:18 Stool Stool Culture - Final 02/18/21 04:18 Stool - Final 02/18/21 18:27 Blood Blood Culture - Final 02/18/21 18:45 Blood Blood Culture - Preliminary 02/19/21 04:18 Urine,Clean Catch Urine Culture - Final Laboratory WBC 6.5 X10^3/uL (3.6-10.0) 02/23/21 05:00 RBC 3.27 X10^6/uL (4.7-6.0) L 02/23/21 05:00 Hgb 10.0 g/dL (13.5-18.0) L 02/23/21 05:00 Hct 29.4 % (42.0-54.0) L 02/23/21 05:00 MCV 89.9 fL (80.0-100.0) 02/23/21 05:00 MCH 30.5 pg (27.0-34.0) 02/23/21 05:00 MCHC 33.9 g/dL (33.0-35.0) 02/23/21 05:00 RDW 13.6 % (11.6-16.5) 02/23/21 05:00 Plt Count 314 X10^3/uL (150.0-450.0) 02/23/21 05:00 Plt Count Comment Adequate (ADEQUATE) 02/19/21 04:41 MPV 9.0 fL (7.4-11.0) 02/23/21 05:00 Neut % (Auto) 63.9 % (42.0-75.0) 02/23/21 05:00 Lymph % (Auto) 21.0 % (21.0-51.0) 02/23/21 05:00 [place] % (Auto) 12.3 % (0.0-13.0) 02/23/21 05:00 Eos % (Auto) 2.5 % (0.9-2.9) 02/23/21 05:00 Baso % (Auto) 0.3 % (0.2-1.0) 02/23/21 05:00 Neut # (Auto) 4.1 x10^3/uL (2.2-4.8) 02/23/21 05:00 Lymph # (Auto) 1.4 X10^3/uL (1.3-2.9) 02/23/21 05:00 [place] # (Auto) 0.8 x10^3/uL (0.3-0.8) 02/23/21 05:00 Eos # (Auto) 0.2 x10^3/uL (0.0-0.2) 02/23/21 05:00 Baso # (Auto) 0.0 X10^3/uL (0.0-0.1) 02/23/21 05:00 Absolute Nucleated RBC 0.1 /100WBC 02/23/21 05:00 Total Counted 100 02/19/21 04:41 Neutrophils % (Manual) 76 % (39-76) 02/19/21 04:41 Band Neutrophils % 3 % (0-10) 02/19/21 04:41 Lymphocytes % (Manual) 19 % (13-43) 02/19/21 04:41 Monocytes % (Manual) 2 % (4-9) L 02/19/21 04:41 Plt Morphology Comment Normal (NORMAL) 02/19/21 04:41 RBC Morphology Normal (NORMAL) 02/19/21 04:41 D-Dimer 3.14 ug/ml (0.0-0.57) H* 02/18/21 18:45 Sample Site Rr 02/21/21 16:16 ABG pH 7.380 (7.35-7.45) 02/21/21 16:16 ABG pCO2 21.0 mmHg (35.0-45.0) L 02/21/21 16:16 ABG pO2 88.0 mmHg (80.0-100.0) 02/21/21 16:16 ABG HCO3 12.4 mmol/L (22-26) L* 02/21/21 16:16 ABG O2 Saturation 97.0 % (90-100) 02/21/21 16:16 ABG Base Excess -10.7 mmol/L (-2.0-2.0) L 02/21/21 16:16 Jun Test Pos 02/21/21 16:16 A-a Gradient 35.0 mmHg 02/21/21 16:16 FiO2 21.0 02/21/21 16:16 Blood Gas Comments Fariha well, kh 02/21/21 16:16 Sodium 140 mmol/L (136-145) 02/23/21 05:00 Corrected Sodium TNP 02/23/21 05:00 Potassium 4.1 mmol/L (3.5-5.1) 02/23/21 05:00 Chloride 110 mmol/L (98-107) H 02/23/21 05:00 Carbon Dioxide 16.7 mmol/L (21-32) L 02/23/21 05:00 BUN 8 mg/dL (7-18) 02/23/21 05:00 Creatinine 1.46 mg/dL (0.70-1.30) H 02/23/21 05:00 Est GFR (MDRD) Af Amer > 60 (>60) 02/23/21 05:00 Est GFR (MDRD) Non-Af 52 (>60) L 02/23/21 05:00 Glucose 105 mg/dL (65-99) H 02/23/21 05:00 POC Glucose (mg/dL) 72 mg/dL (65-99) 02/23/21 08:52 Lactic Acid 0.7 mmol/L (0.4-2.0) 02/18/21 18:45 Calcium 8.1 mg/dL (8.5-10.1) L 02/23/21 05:00 Corrected Calcium 9.1 mg/dL (8.5-10.1) 02/23/21 05:00 Magnesium 2.3 mg/dL (1.7-2.9) 02/23/21 05:00 Iron 25 ug/dL (50-175) L 02/18/21 18:45 Transferrin 112 mg/dL (202-364) L 02/18/21 18:45 Ferritin 1915 ng/mL (26-388) H 02/18/21 18:45 Total Bilirubin 0.20 mg/dL (0.2-1.0) 02/23/21 05:00 AST 30 Units/L (15-37) 02/23/21 05:00 ALT 23 Units/L (12-78) 02/23/21 05:00 Alkaline Phosphatase 76 Units/L (46-116) 02/23/21 05:00 Ammonia < 10 umol/L (11-32) L 02/18/21 18:45 Creatine Kinase 43 Units/L (39-308) 02/18/21 18:45 CK-MB (CK-2) < 1.0 ng/mL (0-4.0) 02/18/21 18:45 CK/CKMB % Calc 2.3 % (<4) 02/18/21 18:45 Troponin I < 0.02 ng/mL (0-1.5) 02/18/21 18:45 Total Protein 6.4 g/dL (6.4-8.2) 02/23/21 05:00 Albumin 2.7 g/dL (3.4-5.0) L 02/23/21 05:00 Globulin 3.7 g/dL (2.5-4.5) 02/23/21 05:00 Albumin/Globulin Ratio 0.7 Ratio (1.1-2.1) L 02/23/21 05:00 Vitamin B12 > 2000 pg/mL (193-986) H 02/18/21 18:45 Folate 7.7 ng/mL (>8.6) L 02/18/21 18:45 Specimen Type Clean catch urine 02/19/21 04:18 Urine Color Yellow (YELLOW) 02/19/21 04:18 Urine Appearance Clear (CLEAR) 02/19/21 04:18 Urine pH 5.0 (5.0 - 8.0) 02/19/21 04:18 Ur Specific [place] 1.015 (1.000-1.030) 02/19/21 04:18 Urine Protein 1+ (NEGATIVE) 02/19/21 04:18 Urine Glucose (UA) 1+ (NEGATIVE) 02/19/21 04:18 Urine Ketones 2+ (NEGATIVE) 02/19/21 04:18 Urine Occult Blood Negative (NEGATIVE) 02/19/21 04:18 Urine Nitrite Negative (NEGATIVE) 02/19/21 04:18 Urine Bilirubin Negative (NEGATIVE) 02/19/21 04:18 Urine Urobilinogen Normal (NORMAL) 02/19/21 04:18 Ur Leukocyte Esterase Negative (NEGATIVE) 02/19/21 04:18 Urine RBC None seen /HPF (0-3) 02/19/21 04:18 Urine WBC None seen /HPF (0-5) 02/19/21 04:18 Ur Squamous Epith Cells Rare /HPF (NEGATIVE) 02/19/21 04:18 Urine Bacteria Negative /HPF (NEGATIVE) 02/19/21 04:18 Ur Culture Indicated? No/not indicated 02/19/21 04:18 Stool Description 400g black loose 02/22/21 22:40 Stl Occult Blood (IFOB) Positive (NEGATIVE) A 02/22/21 22:40 Stl C. diff Tox B Gene Negative (NEGATIVE) 02/19/21 04:18 Stl C. diff [id number] Presumptive negative (NEGATIVE) 02/19/21 04:18 Stool H. pylori Ag Positive (NEGATIVE) A 02/19/21 04:18 Acetone, Semi-Quant Negative (NEGATIVE) 02/21/21 17:40 SARS CoV-2 RNA Rapid SHANICE Negative (NEGATIVE) 02/18/21 16:58 Plan (1) H. pylori infection: Status: Acute (2) Pneumonia: Status: Acute Qualifiers: Pneumonia type: due to unspecified organism Laterality: left Lung location: lower lobe of lung Qualified Code(s): J18.9 - Pneumonia, unspecified organism (3) Acute renal failure: Status: Acute Qualifiers: Acute renal failure type: unspecified Qualified Code(s): N17.9 - Acute kidney failure, unspecified (4) SALAS (dyspnea on exertion): Status: Acute Plan: ADMIT, ICU, BP CONTROL IV HYDRATION, STRICT I&OS, CARIDAC MONITORING BLOOD SPUTUM AND URINE CULTURE ON ADMISSION LACTIC ACID AND AMMONIA LEVEL ON ADMISSION IV ROCEPHIN, VERIFY HOME MEDICATION, SUPPLEMENTAL O2 WITH CXR ON ADMISSION, STOOL STUDIES (5) COPD (chronic obstructive pulmonary disease): Status: Acute Qualifiers: COPD type: unspecified COPD Qualified Code(s): J44.9 - Chronic obstructive pulmonary disease, unspecified (6) Unexplained weight loss: Status: Acute (7) Dehydration: Status: Acute (8) Diabetes mellitus: Status: Chronic Qualifiers: Diabetes mellitus complication detail: with polyneuropathy Diabetes mellitus complication status: with neurologic complications Diabetes mellitus type: type 2 Qualified Code(s): E11.42 - Type 2 diabetes mellitus with diabetic polyneuropathy (9) Human immunodeficiency virus disease: Status: Chronic (10) Weakness: Status: Acute
[2021-02-23] MEDS: PriLOSEC PO SCH ×2 (11:52→20:12)
[2021-02-23] MEDS: NS 1000 ML 1,000 ML IV SCH ×3 (14:05→23:32)
[2021-02-23] MEDS: SNACK - Diabetic Appropriate PO SCH (20:09)
[2021-02-23] MEDS: CRESTOR TAB 10 MG PO SCH (20:12)
[2021-02-23] MEDS: LEVAQUIN PREMIX IV 750 MG 750 MG/150 ML BAG IV SCH (20:13)
[2021-02-24 06:07] LABS: BASOPHILS % (AUTO) 0.3 % (0.2-1.0); EOSINOPHILS # (AUTO) 0.6 x10^3/uL (0.0-0.2); HEMATOCRIT 27.7 % (42.0-54.0); HEMOGLOBIN 9.4 g/dL (13.5-18.0); LYMPHOCYTES # (AUTO) 1.6 X10^3/uL (1.3-2.9); LYMPHOCYTES % (AUTO) 22.6 % (21.0-51.0); MEAN CORPUSCULAR HEMOGLOBIN 30.5 pg (27.0-34.0); MEAN CORPUSCULAR VOLUME 89.7 fL (80.0-100.0); MEAN PLATELET VOLUME 9.1 fL (7.4-11.0); MONOCYTES % (AUTO) 14.3 % (0.0-13.0); NEUTROPHILS # (AUTO) 3.8 x10^3/uL (2.2-4.8); NEUTROPHILS % (AUTO) 54.8 % (42.0-75.0); PLATELET COUNT 307 X10^3/uL (150.0-450.0); RED BLOOD COUNT 3.09 X10^6/uL (4.7-6.0); RED CELL DISTRIBUTION WIDTH 13.8 % (11.6-16.5)
[2021-02-24] MEDS: NEURONTIN CAP 300 MG PO SCH ×3 (06:07→21:00)
[2021-02-24] MEDS: NS 1000 ML 1,000 ML IV SCH ×3 (06:07→20:24)
[2021-02-24 06:10] LABS: BLOOD UREA NITROGEN 11 mg/dL (7-18); CARBON DIOXIDE 18.1 mmol/L (21-32); CHLORIDE 108 mmol/L (98-107); CREATININE 1.46 mg/dL (0.70-1.30); MAGNESIUM 1.9 mg/dL (1.7-2.9); SODIUM 137 mmol/L (136-145); eGFR NON BLACK RACES 52 (>60)
[2021-02-24] MEDS: DUONEB 0.5 MG/3 MG (3 mL) NEB SCH ×4 (09:06→21:17)
[2021-02-24] MEDS: AMOXIL CAP 500 MG PO SCH ×2 (09:09→21:00)
[2021-02-24] MEDS: BIAXIN TAB 500 MG PO SCH ×2 (09:09→21:00)
[2021-02-24] MEDS: DIFLUCAN 100 MG IV (MIX by PHARMACY)* 100 MG/50 ML BAG IV SCH (09:10)
[2021-02-24] MEDS: ELIQUIS PO SCH ×2 (09:10→21:00)
[2021-02-24] MEDS: HEMOCYTE-PLUS PO SCH (09:10)
[2021-02-24] MEDS: PriLOSEC PO SCH ×2 (09:10→21:00)
[2021-02-24] MEDS: PATIENT'S HOME MEDICATION PO SCH (09:10)
[2021-02-24] MEDS: RALTEGRAVIR 400 MG PO SCH (09:11)
[2021-02-24] MEDS: RITONAVIR 100 MG PO SCH (09:11)
[2021-02-24] MEDS ORDERED: RESTORIL CAP 15 MG PO PRN (10:34)
--- NOTE | 2021-02-24 10:37 | PCM.PROG ---
Progress Note Progress Note for Day of Date of Exam: 02/24/21 Subjective Subjective: Patient seen at bedside, no acute events. He has been doing well. He is sleepy this morning. Nurse stated that patient has not been able to sleep much at night and ends up sleeping during the day. His appetite is improving, he has been drinking Ensure. Denies N/V/D. He denies blood in stools or melena. No prior hx of GI bleed or ulcers. Patient lives alone but does have nurse aid twice a week. He has been ambulating in the room. Labs: Hgb 9.4 WBC 7 CO2 18 BUN/Cr: 11/1.46 Mg 1.9 Plan: continue IV levaquin for LL pneumonia, continue H Pylori triple therapy treatment. PT/OT as tolerated. Continue gentle hydration. Likely discharge tomorrow with home health. Will add Temazepam qhS for insomnia. Monitor Am labs and imaging. Past Medical Family Social History Past Med/Fam/Surg Hx: No changes since H&P Allergies: Allergies No Known Drug Allergies Allergy (Verified 02/04/21 15:32) Review of Systems ROS: No change since H&P Vital Signs and I&O's Vital Signs: Temperature 98.1 F Pulse Rate [Apical] 88 Pulse Rate 83 Respiratory Rate 17 Blood Pressure [Right Arm] 116/73 Blood Pressure [Left Arm] 119/66 Blood Pressure 99/67 O2 Sat by Pulse Oximetry 99 Intake and Output: Intake & Output 02/21/21 02/22/21 02/23/21 02/24/21 23:59 23:59 23:59 23:59 Intake Total 4582 / 4582 4775 / 4775 4875 / 4875 681 / 681 Output Total 1050 / 1050 1800 / 1800 1075 / 1075 625 / 625 Balance 3532 / 3532 2975 / 2975 3800 / 3800 56 / 56 Physical Exam Oriented: Normal Eyes: Normal Ear: Normal Nose: Normal Throat: Normal Respiratory: Generalized and Diminished Cardiovascular: Normal : Normal Auscultation: Bowel Sounds: Normal Tenderness: Normal Skin: Decreased Turgur Musculoskeletal: Back:Thoracic and Back:Lumbar Psychiatric: Normal Mood Description: Calm Affect: Normal Speech Pattern: Clear and Appropriate Laboratory and Diagnostics Result Diagrams: 02/24/21 05:55 02/24/21 05:55 Labs: 02/19/21 18:25 Blood Blood Culture - Preliminary 02/19/21 18:07 Blood Blood Culture - Preliminary 02/18/21 04:18 Stool Stool Culture - Final 02/18/21 04:18 Stool - Final 02/18/21 18:27 Blood Blood Culture - Final 02/18/21 18:45 Blood Blood Culture - Preliminary 02/19/21 04:18 Urine,Clean Catch Urine Culture - Final Laboratory WBC 7.0 X10^3/uL (3.6-10.0) 02/24/21 05:55 RBC 3.09 X10^6/uL (4.7-6.0) L 02/24/21 05:55 Hgb 9.4 g/dL (13.5-18.0) L 02/24/21 05:55 Hct 27.7 % (42.0-54.0) L 02/24/21 05:55 MCV 89.7 fL (80.0-100.0) 02/24/21 05:55 MCH 30.5 pg (27.0-34.0) 02/24/21 05:55 MCHC 34.0 g/dL (33.0-35.0) 02/24/21 05:55 RDW 13.8 % (11.6-16.5) 02/24/21 05:55 Plt Count 307 X10^3/uL (150.0-450.0) 02/24/21 05:55 Plt Count Comment Adequate (ADEQUATE) 02/19/21 04:41 MPV 9.1 fL (7.4-11.0) 02/24/21 05:55 Neut % (Auto) 54.8 % (42.0-75.0) 02/24/21 05:55 Lymph % (Auto) 22.6 % (21.0-51.0) 02/24/21 05:55 [place] % (Auto) 14.3 % (0.0-13.0) H 02/24/21 05:55 Eos % (Auto) 8.0 % (0.9-2.9) H 02/24/21 05:55 Baso % (Auto) 0.3 % (0.2-1.0) 02/24/21 05:55 Neut # (Auto) 3.8 x10^3/uL (2.2-4.8) 02/24/21 05:55 Lymph # (Auto) 1.6 X10^3/uL (1.3-2.9) 02/24/21 05:55 [place] # (Auto) 1.0 x10^3/uL (0.3-0.8) H 02/24/21 05:55 Eos # (Auto) 0.6 x10^3/uL (0.0-0.2) H 02/24/21 05:55 Baso # (Auto) 0.0 X10^3/uL (0.0-0.1) 02/24/21 05:55 Absolute Nucleated RBC 0.2 /100WBC 02/24/21 05:55 Total Counted 100 02/19/21 04:41 Neutrophils % (Manual) 76 % (39-76) 02/19/21 04:41 Band Neutrophils % 3 % (0-10) 02/19/21 04:41 Lymphocytes % (Manual) 19 % (13-43) 02/19/21 04:41 Monocytes % (Manual) 2 % (4-9) L 02/19/21 04:41 Plt Morphology Comment Normal (NORMAL) 02/19/21 04:41 RBC Morphology Normal (NORMAL) 02/19/21 04:41 D-Dimer 3.14 ug/ml (0.0-0.57) H* 02/18/21 18:45 Sample Site Rr 02/21/21 16:16 ABG pH 7.380 (7.35-7.45) 02/21/21 16:16 ABG pCO2 21.0 mmHg (35.0-45.0) L 02/21/21 16:16 ABG pO2 88.0 mmHg (80.0-100.0) 02/21/21 16:16 ABG HCO3 12.4 mmol/L (22-26) L* 02/21/21 16:16 ABG O2 Saturation 97.0 % (90-100) 02/21/21 16:16 ABG Base Excess -10.7 mmol/L (-2.0-2.0) L 02/21/21 16:16 Jun Test Pos 02/21/21 16:16 A-a Gradient 35.0 mmHg 02/21/21 16:16 FiO2 21.0 02/21/21 16:16 Blood Gas Comments Fariha well, kh 02/21/21 16:16 Sodium 137 mmol/L (136-145) 02/24/21 05:55 Corrected Sodium TNP 02/24/21 05:55 Potassium 4.5 mmol/L (3.5-5.1) 02/24/21 05:55 Chloride 108 mmol/L (98-107) H 02/24/21 05:55 Carbon Dioxide 18.1 mmol/L (21-32) L 02/24/21 05:55 BUN 11 mg/dL (7-18) 02/24/21 05:55 Creatinine 1.46 mg/dL (0.70-1.30) H 02/24/21 05:55 Est GFR (MDRD) Af Amer > 60 (>60) 02/24/21 05:55 Est GFR (MDRD) Non-Af 52 (>60) L 02/24/21 05:55 Glucose 104 mg/dL (65-99) H 02/24/21 05:55 POC Glucose (mg/dL) 110 mg/dL (65-99) H 02/24/21 05:20 Lactic Acid 0.7 mmol/L (0.4-2.0) 02/18/21 18:45 Calcium 8.0 mg/dL (8.5-10.1) L 02/24/21 05:55 Corrected Calcium 9.1 mg/dL (8.5-10.1) 02/23/21 05:00 Magnesium 1.9 mg/dL (1.7-2.9) 02/24/21 05:55 Iron 25 ug/dL (50-175) L 02/18/21 18:45 Transferrin 112 mg/dL (202-364) L 02/18/21 18:45 Ferritin 1915 ng/mL (26-388) H 02/18/21 18:45 Total Bilirubin 0.20 mg/dL (0.2-1.0) 02/23/21 05:00 AST 30 Units/L (15-37) 02/23/21 05:00 ALT 23 Units/L (12-78) 02/23/21 05:00 Alkaline Phosphatase 76 Units/L (46-116) 02/23/21 05:00 Ammonia < 10 umol/L (11-32) L 02/18/21 18:45 Creatine Kinase 43 Units/L (39-308) 02/18/21 18:45 CK-MB (CK-2) < 1.0 ng/mL (0-4.0) 02/18/21 18:45 CK/CKMB % Calc 2.3 % (<4) 02/18/21 18:45 Troponin I < 0.02 ng/mL (0-1.5) 02/18/21 18:45 Total Protein 6.4 g/dL (6.4-8.2) 02/23/21 05:00 Albumin 2.7 g/dL (3.4-5.0) L 02/23/21 05:00 Globulin 3.7 g/dL (2.5-4.5) 02/23/21 05:00 Albumin/Globulin Ratio 0.7 Ratio (1.1-2.1) L 02/23/21 05:00 Vitamin B12 > 2000 pg/mL (193-986) H 02/18/21 18:45 Folate 7.7 ng/mL (>8.6) L 02/18/21 18:45 Specimen Type Clean catch urine 02/19/21 04:18 Urine Color Yellow (YELLOW) 02/19/21 04:18 Urine Appearance Clear (CLEAR) 02/19/21 04:18 Urine pH 5.0 (5.0 - 8.0) 02/19/21 04:18 Ur Specific [place] 1.015 (1.000-1.030) 02/19/21 04:18 Urine Protein 1+ (NEGATIVE) 02/19/21 04:18 Urine Glucose (UA) 1+ (NEGATIVE) 02/19/21 04:18 Urine Ketones 2+ (NEGATIVE) 02/19/21 04:18 Urine Occult Blood Negative (NEGATIVE) 02/19/21 04:18 Urine Nitrite Negative (NEGATIVE) 02/19/21 04:18 Urine Bilirubin Negative (NEGATIVE) 02/19/21 04:18 Urine Urobilinogen Normal (NORMAL) 02/19/21 04:18 Ur Leukocyte Esterase Negative (NEGATIVE) 02/19/21 04:18 Urine RBC None seen /HPF (0-3) 02/19/21 04:18 Urine WBC None seen /HPF (0-5) 02/19/21 04:18 Ur Squamous Epith Cells Rare /HPF (NEGATIVE) 02/19/21 04:18 Urine Bacteria Negative /HPF (NEGATIVE) 02/19/21 04:18 Ur Culture Indicated? No/not indicated 02/19/21 04:18 Stool Description 400g black loose 02/22/21 22:40 Stl Occult Blood (IFOB) Positive (NEGATIVE) A 02/22/21 22:40 Stl C. diff Tox B Gene Negative (NEGATIVE) 02/19/21 04:18 Stl C. diff [id number] Presumptive negative (NEGATIVE) 02/19/21 04:18 Stool H. pylori Ag Positive (NEGATIVE) A 02/19/21 04:18 Acetone, Semi-Quant Negative (NEGATIVE) 02/21/21 17:40 SARS CoV-2 RNA Rapid SHANICE Negative (NEGATIVE) 02/18/21 16:58 Plan (1) H. pylori infection: Status: Acute (2) Pneumonia: Status: Acute Qualifiers: Laterality: left Lung location: lower lobe of lung Pneumonia type: due to unspecified organism Qualified Code(s): J18.9 - Pneumonia, unspecified organism (3) Acute renal failure: Status: Acute Qualifiers: Acute renal failure type: unspecified Qualified Code(s): N17.9 - Acute kidney failure, unspecified (4) SALAS (dyspnea on exertion): Status: Acute Plan: ADMIT, ICU, BP CONTROL IV HYDRATION, STRICT I&OS, CARIDAC MONITORING BLOOD SPUTUM AND URINE CULTURE ON ADMISSION LACTIC ACID AND AMMONIA LEVEL ON ADMISSION IV ROCEPHIN, VERIFY HOME MEDICATION, SUPPLEMENTAL O2 WITH CXR ON ADMISSION, STOOL STUDIES (5) COPD (chronic obstructive pulmonary disease): Status: Acute Qualifiers: COPD type: unspecified COPD Qualified Code(s): J44.9 - Chronic obstructive pulmonary disease, unspecified (6) Unexplained weight loss: Status: Acute (7) Dehydration: Status: Acute (8) Diabetes mellitus: Status: Chronic Qualifiers: Diabetes mellitus complication detail: with polyneuropathy Diabetes mellitus complication status: with neurologic complications Diabetes mellitus type: type 2 Qualified Code(s): E11.42 - Type 2 diabetes mellitus with diabetic polyneuropathy (9) Human immunodeficiency virus disease: Status: Chronic (10) Weakness: Status: Acute
[2021-02-24] MEDS: MAGNESIUM SULFATE 1 GRAM/100 mL PREMIX 1 GM/100 ML BAG IV PRN ×2 (15:27→16:52)
[2021-02-24] MEDS: SNACK - Diabetic Appropriate PO SCH (20:23)
[2021-02-24] MEDS: CRESTOR TAB 10 MG PO SCH (21:00)
[2021-02-25] MEDS: NS 1000 ML 1,000 ML IV SCH (04:56)
[2021-02-25 05:14] LABS: BASOPHILS % (AUTO) 0.4 % (0.2-1.0); EOSINOPHILS # (AUTO) 0.6 x10^3/uL (0.0-0.2); EOSINOPHILS % (AUTO) 7.7 % (0.9-2.9); HEMATOCRIT 29.6 % (42.0-54.0); LYMPHOCYTES # (AUTO) 1.5 X10^3/uL (1.3-2.9); LYMPHOCYTES % (AUTO) 20.8 % (21.0-51.0); MEAN CORPUSCULAR HEMOGLOBIN 30.5 pg (27.0-34.0); MEAN CORPUSCULAR HGB CONC 33.9 g/dL (33.0-35.0); MEAN CORPUSCULAR VOLUME 89.9 fL (80.0-100.0); MONOCYTES # (AUTO) 1.2 x10^3/uL (0.3-0.8); MONOCYTES % (AUTO) 15.9 % (0.0-13.0); NEUTROPHILS % (AUTO) 55.2 % (42.0-75.0); PLATELET COUNT 322 X10^3/uL (150.0-450.0); RED BLOOD COUNT 3.29 X10^6/uL (4.7-6.0); RED CELL DISTRIBUTION WIDTH 13.6 % (11.6-16.5); WHITE BLOOD COUNT 7.3 X10^3/uL (3.6-10.0)
[2021-02-25 05:18] LABS: BLOOD UREA NITROGEN 15 mg/dL (7-18); CALCIUM 7.9 mg/dL (8.5-10.1); CARBON DIOXIDE 19.6 mmol/L (21-32); CHLORIDE 106 mmol/L (98-107); CREATININE 1.34 mg/dL (0.70-1.30); MAGNESIUM 2.3 mg/dL (1.7-2.9); SODIUM 136 mmol/L (136-145); eGFR NON BLACK RACES 57 (>60)
[2021-02-25] MEDS: NEURONTIN CAP 300 MG PO SCH (06:34)
[2021-02-25] MEDS: DUONEB 0.5 MG/3 MG (3 mL) NEB SCH (09:20)
[2021-02-25] MEDS: AMOXIL CAP 500 MG PO SCH (09:21)
[2021-02-25] MEDS: ELIQUIS PO SCH (09:22)
[2021-02-25] MEDS: BIAXIN TAB 500 MG PO SCH (09:22)
[2021-02-25] MEDS: DIFLUCAN 100 MG IV (MIX by PHARMACY)* 100 MG/50 ML BAG IV SCH (09:22)
[2021-02-25] MEDS: HEMOCYTE-PLUS PO SCH (09:23)
[2021-02-25] MEDS: PriLOSEC PO SCH (09:24)
[2021-02-25] MEDS: RITONAVIR 100 MG PO SCH (09:42)
[2021-02-25] MEDS: RALTEGRAVIR 400 MG PO SCH (09:44)
[2021-02-25] MEDS: PATIENT'S HOME MEDICATION PO SCH (09:47)
--- NOTE | 2021-02-25 10:30 | W.DIS.FURT ---
Summary of Discharge Admission Diagnosis Patient Problems (Updated 02/23/21 @ 11:27 by Juliana Brown) Dehydration (Acute) E86.0 Diabetes mellitus (Chronic) E11.9 Human immunodeficiency virus disease (Chronic) B20 Weakness (Acute) R53.1 SALAS (dyspnea on exertion) (Acute) R06.00 Unexplained weight loss (Acute) R63.4 COPD (chronic obstructive pulmonary disease) (Acute) J44.9 Vital Signs: Vital Signs (72 hours) 02/22/21 12:00 02/22/21 16:00 02/22/21 20:00 Temperature 98.4 F 98.4 F 98.8 F Pulse Rate Pulse Rate [Apical] 72 88 88 Respiratory Rate 13 18 22 Blood Pressure [Right Arm] 149/88 138/85 121/73 O2 Sat by Pulse Oximetry 98 97 96 02/22/21 21:09 02/23/21 00:00 02/23/21 04:00 Temperature 98.4 F 98.6 F Pulse Rate 90 Pulse Rate [Apical] 89 83 Respiratory Rate 16 16 Blood Pressure [Right Arm] 131/88 133/85 O2 Sat by Pulse Oximetry 99 94 L 95 02/23/21 08:00 02/23/21 09:51 02/23/21 12:00 Temperature 99.0 F 97.9 F Pulse Rate 86 Pulse Rate [Apical] 89 91 H Respiratory Rate 20 16 Blood Pressure [Right Arm] 151/94 128/81 O2 Sat by Pulse Oximetry 95 97 98 02/23/21 13:05 02/23/21 16:00 02/23/21 17:14 Temperature Pulse Rate 87 86 Pulse Rate [Apical] 84 Respiratory Rate 25 H Blood Pressure [Right Arm] 125/83 O2 Sat by Pulse Oximetry 97 95 100 02/23/21 20:00 02/23/21 20:30 02/24/21 00:00 Temperature 98.0 F 98.9 F Pulse Rate 90 Pulse Rate [Apical] 96 H 85 Respiratory Rate 25 H 20 Blood Pressure [Right Arm] 130/96 111/73 O2 Sat by Pulse Oximetry 99 98 98 02/24/21 04:00 02/24/21 08:00 02/24/21 09:06 Temperature 98.2 F 98.1 F Pulse Rate 83 Pulse Rate [Apical] 84 88 Respiratory Rate 15 17 Blood Pressure [Right Arm] 131/81 116/73 O2 Sat by Pulse Oximetry 98 98 99 02/24/21 12:00 02/24/21 13:16 02/24/21 16:00 Temperature 98.3 F Pulse Rate 88 Pulse Rate [Apical] 87 84 Respiratory Rate 20 19 Blood Pressure [Right Arm] 132/66 132/81 O2 Sat by Pulse Oximetry 100 98 100 02/24/21 17:33 02/24/21 20:00 02/25/21 00:00 Temperature 98.9 F 97.9 F Pulse Rate 85 Pulse Rate [Apical] 91 H 83 Respiratory Rate 24 21 Blood Pressure [Right Arm] 126/80 114/69 O2 Sat by Pulse Oximetry 100 100 96 02/25/21 04:00 02/25/21 09:20 Temperature 98.4 F Pulse Rate 91 H Pulse Rate [Apical] 86 Respiratory Rate 20 Blood Pressure [Right Arm] 104/63 O2 Sat by Pulse Oximetry 96 98 Labs: Laboratory Last Values WBC 7.3 X10^3/uL (3.6-10.0) 02/25/21 04:50 RBC 3.29 X10^6/uL (4.7-6.0) L 02/25/21 04:50 Hgb 10.0 g/dL (13.5-18.0) L 02/25/21 04:50 Hct 29.6 % (42.0-54.0) L 02/25/21 04:50 MCV 89.9 fL (80.0-100.0) 02/25/21 04:50 MCH 30.5 pg (27.0-34.0) 02/25/21 04:50 MCHC 33.9 g/dL (33.0-35.0) 02/25/21 04:50 RDW 13.6 % (11.6-16.5) 02/25/21 04:50 Plt Count 322 X10^3/uL (150.0-450.0) 02/25/21 04:50 Plt Count Comment Adequate (ADEQUATE) 02/19/21 04:41 MPV 9.0 fL (7.4-11.0) 02/25/21 04:50 Neut % (Auto) 55.2 % (42.0-75.0) 02/25/21 04:50 Lymph % (Auto) 20.8 % (21.0-51.0) L 02/25/21 04:50 [place] % (Auto) 15.9 % (0.0-13.0) H 02/25/21 04:50 Eos % (Auto) 7.7 % (0.9-2.9) H 02/25/21 04:50 Baso % (Auto) 0.4 % (0.2-1.0) 02/25/21 04:50 Neut # (Auto) 4.0 x10^3/uL (2.2-4.8) 02/25/21 04:50 Lymph # (Auto) 1.5 X10^3/uL (1.3-2.9) 02/25/21 04:50 [place] # (Auto) 1.2 x10^3/uL (0.3-0.8) H 02/25/21 04:50 Eos # (Auto) 0.6 x10^3/uL (0.0-0.2) H 02/25/21 04:50 Baso # (Auto) 0.0 X10^3/uL (0.0-0.1) 02/25/21 04:50 Absolute Nucleated RBC 0.1 /100WBC 02/25/21 04:50 Total Counted 100 02/19/21 04:41 Neutrophils % (Manual) 76 % (39-76) 02/19/21 04:41 Band Neutrophils % 3 % (0-10) 02/19/21 04:41 Lymphocytes % (Manual) 19 % (13-43) 02/19/21 04:41 Monocytes % (Manual) 2 % (4-9) L 02/19/21 04:41 Plt Morphology Comment Normal (NORMAL) 02/19/21 04:41 RBC Morphology Normal (NORMAL) 02/19/21 04:41 D-Dimer 3.14 ug/ml (0.0-0.57) H* 02/18/21 18:45 Sample Site Rr 02/21/21 16:16 ABG pH 7.380 (7.35-7.45) 02/21/21 16:16 ABG pCO2 21.0 mmHg (35.0-45.0) L 02/21/21 16:16 ABG pO2 88.0 mmHg (80.0-100.0) 02/21/21 16:16 ABG HCO3 12.4 mmol/L (22-26) L* 02/21/21 16:16 ABG O2 Saturation 97.0 % (90-100) 02/21/21 16:16 ABG Base Excess -10.7 mmol/L (-2.0-2.0) L 02/21/21 16:16 Jun Test Pos 02/21/21 16:16 A-a Gradient 35.0 mmHg 02/21/21 16:16 FiO2 21.0 02/21/21 16:16 Blood Gas Comments Fariha well, kh 02/21/21 16:16 Sodium 136 mmol/L (136-145) 02/25/21 04:50 Corrected Sodium TNP 02/25/21 04:50 Potassium 4.2 mmol/L (3.5-5.1) 02/25/21 04:50 Chloride 106 mmol/L (98-107) 02/25/21 04:50 Carbon Dioxide 19.6 mmol/L (21-32) L 02/25/21 04:50 BUN 15 mg/dL (7-18) 02/25/21 04:50 Creatinine 1.34 mg/dL (0.70-1.30) H 02/25/21 04:50 Est GFR (MDRD) Af Amer > 60 (>60) 02/25/21 04:50 Est GFR (MDRD) Non-Af 57 (>60) L 02/25/21 04:50 Glucose 90 mg/dL (65-99) 02/25/21 04:50 POC Glucose (mg/dL) 96 mg/dL (65-99) 02/24/21 19:42 Lactic Acid 0.7 mmol/L (0.4-2.0) 02/18/21 18:45 Calcium 7.9 mg/dL (8.5-10.1) L 02/25/21 04:50 Corrected Calcium 9.1 mg/dL (8.5-10.1) 02/23/21 05:00 Magnesium 2.3 mg/dL (1.7-2.9) 02/25/21 04:50 Iron 25 ug/dL (50-175) L 02/18/21 18:45 Transferrin 112 mg/dL (202-364) L 02/18/21 18:45 Ferritin 1915 ng/mL (26-388) H 02/18/21 18:45 Total Bilirubin 0.20 mg/dL (0.2-1.0) 02/23/21 05:00 AST 30 Units/L (15-37) 02/23/21 05:00 ALT 23 Units/L (12-78) 02/23/21 05:00 Alkaline Phosphatase 76 Units/L (46-116) 02/23/21 05:00 Ammonia < 10 umol/L (11-32) L 02/18/21 18:45 Creatine Kinase 43 Units/L (39-308) 02/18/21 18:45 CK-MB (CK-2) < 1.0 ng/mL (0-4.0) 02/18/21 18:45 CK/CKMB % Calc 2.3 % (<4) 02/18/21 18:45 Troponin I < 0.02 ng/mL (0-1.5) 02/18/21 18:45 Total Protein 6.4 g/dL (6.4-8.2) 02/23/21 05:00 Albumin 2.7 g/dL (3.4-5.0) L 02/23/21 05:00 Globulin 3.7 g/dL (2.5-4.5) 02/23/21 05:00 Albumin/Globulin Ratio 0.7 Ratio (1.1-2.1) L 02/23/21 05:00 Vitamin B12 > 2000 pg/mL (193-986) H 02/18/21 18:45 Folate 7.7 ng/mL (>8.6) L 02/18/21 18:45 Specimen Type Clean catch urine 02/19/21 04:18 Urine Color Yellow (YELLOW) 02/19/21 04:18 Urine Appearance Clear (CLEAR) 02/19/21 04:18 Urine pH 5.0 (5.0 - 8.0) 02/19/21 04:18 Ur Specific [place] 1.015 (1.000-1.030) 02/19/21 04:18 Urine Protein 1+ (NEGATIVE) 02/19/21 04:18 Urine Glucose (UA) 1+ (NEGATIVE) 02/19/21 04:18 Urine Ketones 2+ (NEGATIVE) 02/19/21 04:18 Urine Occult Blood Negative (NEGATIVE) 02/19/21 04:18 Urine Nitrite Negative (NEGATIVE) 02/19/21 04:18 Urine Bilirubin Negative (NEGATIVE) 02/19/21 04:18 Urine Urobilinogen Normal (NORMAL) 02/19/21 04:18 Ur Leukocyte Esterase Negative (NEGATIVE) 02/19/21 04:18 Urine RBC None seen /HPF (0-3) 02/19/21 04:18 Urine WBC None seen /HPF (0-5) 02/19/21 04:18 Ur Squamous Epith Cells Rare /HPF (NEGATIVE) 02/19/21 04:18 Urine Bacteria Negative /HPF (NEGATIVE) 02/19/21 04:18 Ur Culture Indicated? No/not indicated 02/19/21 04:18 Stool Description 400g black loose 02/22/21 22:40 Stl Occult Blood (IFOB) Positive (NEGATIVE) A 02/22/21 22:40 Stl C. diff Tox B Gene Negative (NEGATIVE) 02/19/21 04:18 Stl C. diff [id number] Presumptive negative (NEGATIVE) 02/19/21 04:18 Stool H. pylori Ag Positive (NEGATIVE) A 02/19/21 04:18 Acetone, Semi-Quant Negative (NEGATIVE) 02/21/21 17:40 SARS CoV-2 RNA Rapid SHANICE Negative (NEGATIVE) 02/18/21 16:58 Reason For Visit: PNEUMONIA Discharge Diagnosis All Active Problems (Updated 02/23/21 @ 11:27 by Juliana Brown) H. pylori infection (Acute) Pneumonia (Acute) Hyponatremia (Acute) Dehydration (Acute) Hematuria (Acute) Diabetes mellitus (Chronic) Human immunodeficiency virus disease (Chronic) Weakness (Acute) Dehydration, mild (Acute) Anemia (Acute) SOB (shortness of breath) on exertion (Acute) Generalized muscle weakness (Acute) Hypoglycemia (Acute) Acute renal failure (Acute) Thrush of mouth and esophagus (Acute) Anxiety (Acute) Hypokalemia (Acute) Diarrhea in adult patient (Acute) Alcohol abuse (Acute) Anemia (Acute) Weakness (Acute) Appetite loss (Acute) Generalized weakness (Acute) SALAS (dyspnea on exertion) (Acute) Unexplained weight loss (Acute) COPD (chronic obstructive pulmonary disease) (Acute) Plan of Treatment: Continue with present treatment and follow up plan. Pt is to keep follow up appointment as instructed and take medications as ordered. Discharge Medications Discharge Medications: No Known Drug Allergies Allergy (Verified 02/04/21 15:32) CONTINUE taking the following medications lamivudine [Epivir] 150 mg PO DAILY 02/18/21 [History] Isentress HD 1,200 mg PO DAILY 02/19/21 [History] gabapentin 600 mg PO BID 02/19/21 [History] glimepiride 2 mg PO DAILY 02/19/21 [History] megestrol 40 mg PO BID 02/19/21 [History] ropinirole 1 mg PO BID 02/19/21 [History] New Prescriptions B [id number] [Ferrocite Plus] 1 tab PO DAILY 30 Days #30 tab 02/25/21 [Rx] amoxicillin 1,000 mg PO BID 10 Days #40 cap 02/25/21 [Rx] clarithromycin 500 mg PO BID 10 Days #20 tab 02/25/21 [Rx] omeprazole 20 mg PO BID 10 Days #20 cap 02/25/21 [Rx] Discharge Plan Discharge Plan Patient Disposition: HOME HEALTH SERVICE Condition: Stable Health Concerns: Post Hospitalization: new medications and changes needed to prevent readmission or further decline. Pt educated and given instructions on all concerns. Plan of Treatment: Continue with present treatment and follow up plan. Pt is to keep follow up appointment as instructed and take medications as ordered. Prescription drug monitoring program results: PDMP reviewed and no concerns identified Prescriptions: New amoxicillin 500 mg Capsule 1,000 mg PO BID 10 Days Qty: 40 RF: 0 clarithromycin 500 mg Tablet 500 mg PO BID 10 Days Qty: 20 RF: 0 omeprazole 20 mg Capsule,Delayed Release(Dr/Ec) 20 mg PO BID 10 Days Qty: 20 RF: 0 Ferrocite Plus 106 mg iron- 1 mg Tablet 1 tab PO DAILY 30 Days Qty: 30 RF: 0 Continued rosuvastatin 10 mg Tablet 10 mg PO HS RF: 0 Januvia 100 mg Tablet 100 mg PO DAILY RF: 0 ritonavir [Norvir] 100 mg Tablet 100 mg PO DAILY RF: 0 Prezista 800 mg Tablet 800 mg PO DAILY RF: 0 Eliquis 5 mg Tablet 5 mg PO BID RF: 0 lamivudine [Epivir] 150 mg tablet 150 mg PO DAILY RF: 0 glimepiride 2 mg tablet 2 mg PO DAILY RF: 0 megestrol 40 mg tablet 40 mg PO BID RF: 0 gabapentin 300 mg capsule 600 mg PO BID RF: 0 Isentress HD 600 mg tablet 1,200 mg PO DAILY RF: 0 ropinirole 1 mg tablet 1 mg PO BID RF: 0 Follow ups/Referrals Follow ups/Referrals: JAISON GOOD [Primary Care Provider] - 1 WEEK Instructions Stand Alone Forms: Excuse From Work or School, Social Distancing
[2021-02-25 12:14] VITALS: BP 103/64
== END 2021-02-25 11:52 | disposition home health service (06) | DRG 975 ==
LOC: ICU
PROVIDERS: ADMIT Internal Medicine; ATTEND Internal Medicine
DX: N17.8 Other acute kidney failure; E86.0 Dehydration; D50.8 Other iron deficiency anemias; B20 Human immunodeficiency virus [HIV] disease; Z20.822 Contact with and (suspected) exposure to COVID-19; J18.8 Other pneumonia, unspecified organism; R26.89 Other abnormalities of gait and mobility; J44.9 Chronic obstructive pulmonary disease, unspecified; R53.1 Weakness; E11.65 Type 2 diabetes mellitus with hyperglycemia; E11.42 Type 2 diabetes mellitus with diabetic polyneuropathy; R63.4 Abnormal weight loss; I95.89 Other hypotension; R06.00 Dyspnea, unspecified; B96.81 Helicobacter pylori [H. pylori] as the cause of diseases classified elsewhere; K21.9 Gastro-esophageal reflux disease without esophagitis; E87.6 Hypokalemia

== ENCOUNTER 2021-03-08 05:56 | Observation (INO) ==
--- NOTE | 2021-03-08 06:08 | DR.GENAD ---
HPI Time Seen Time Seen by Provider: 03/08/21 06:00 HPI Comment HPI Comment: Low sugar Complaint/Symptoms Chief Complaint Doctors Comments: Here yesterday with the same. Treated and released. Went home and did not eat anything. Confused and diaphoretic again this AM. Sugar would only read "low" on EMS arrival, given D50 and up to 250 en route. Arrives awake and alert. Diaphoresis has dried. COVID-19 Coronavirus risk:travel/contact w/high risk person: No Has patient experienced Coronavirus symptoms: No Nurses notes reviewed Nurses Notes Review: Yes Source History Provided: Patient and EMS Mode of Arrival Mode of Arrival: Ambulatory Timing Came on: At Night Severity Severity: Severe Modifying Factors Worsens:: not eating Improves:: po intake and D50 PMH PMH Past Medical History: Anemia, Anxiety, Arthritis and Diabetes Past Medical History Comment: HIV + Past Surgical History: No Surgical History: No History Family History Family Medical History: Diabetes Mellitus, Cancer, [place], Coronary Artery Disease and Hypertension Social History Do you use any recreational Drugs:: No ROS Review of Systems Constitutional: Diaphoresis, Malaise, Weakness and Fatigue ENTM: No Symptoms Reported Respiratoy: No Symptoms Reported Cardiovascular: No Symptoms Reported Gastrointestinal/Abdominal: No Symptoms Reported Genitourinary: No Symptoms Reported Neurological: Other (confusion) Musculoskeletal: No Symptoms Reported Integumentary: Other (diaphoresis) Endocrine: Excessive Sweating and Decreased Appetite Psychiatric: No Symptoms Reported PE Vital Signs Vitals: Temperature 97 F Pulse Rate 86 Respiratory Rate 20 Blood Pressure [Right Arm] 97/51 Blood Pressure 166/78 O2 Sat by Pulse Oximetry 98 General Limitations: No Limitations General Appearance: Alert and In No Apparent Distress Head Head Exam: Normal Inspection Eyes Eye exam: Normal Appearance ENT ENT Exam: Normal Exam External Ear Exam: Normal External Inspection Mouth Exam: Normal Inspection Throat Exam: Normal Inspection Neck Neck Exam: Normal Inspection Chest Chest Inspection: Normal Inspection Respiratory Respiratory Exam: Normal Lung Sounds Bilat Cardiovascular Cardiovascular Exam: Regular Rate Abdominal Exam Abdominal Exam: Normal Inspection Extremities Extremities Exam: Normal Inspection Back Back Exam: Normal Inspection Neurologic Neurological Exam: Alert and Oriented X3 Psychiatric Psychiatric Exam: Normal Affect Skin Skin Exam: Warm, Dry and Normal Color; negative Diaphoresis COURSE Treatment Treatment: Down to 136 on arrival, 1/2 amp D50 ordered and will feed, check CMP, and hydrate with D10. Pt denies knowingly taking extra DM meds. HIV+, cannot say last CD4 count or viral load other than one is "almost und etectable". Acute on chronic renal insufficiency on labs. Will continue to hydrate with D10 and monitor glucose. Sign over to Dr. Barahona with disposition pending. ROR Labs Reviewed Result Diagrams: 03/08/21 06:20 03/08/21 06:20 Laboratory: Sodium 138 mmol/L (136-145) 03/08/21 06:20 Corrected Sodium TNP 03/08/21 06:20 Potassium 4.0 mmol/L (3.5-5.1) 03/08/21 06:20 Chloride 105 mmol/L (98-107) 03/08/21 06:20 Carbon Dioxide 19.2 mmol/L (21-32) L 03/08/21 06:20 BUN 13 mg/dL (7-18) 03/08/21 06:20 Creatinine 2.05 mg/dL (0.70-1.30) H 03/08/21 06:20 Est GFR (MDRD) Af Amer 42 (>60) L 03/08/21 06:20 Est GFR (MDRD) Non-Af 35 (>60) L 03/08/21 06:20 Glucose 57 mg/dL (65-99) L 03/08/21 06:20 POC Glucose (mg/dL) 163 mg/dL (65-99) H 03/08/21 07:30 Calcium 9.0 mg/dL (8.5-10.1) 03/08/21 06:20 Corrected Calcium 9.9 mg/dL (8.5-10.1) 03/08/21 06:20 Total Bilirubin 0.40 mg/dL (0.2-1.0) 03/08/21 06:20 AST 28 Units/L (15-37) 03/08/21 06:20 ALT 16 Units/L (12-78) 03/08/21 06:20 Alkaline Phosphatase 173 Units/L (46-116) H 03/08/21 06:20 Total Protein 8.3 g/dL (6.4-8.2) H 03/08/21 06:20 Albumin 2.9 g/dL (3.4-5.0) L 03/08/21 06:20 Globulin 5.4 g/dL (2.5-4.5) H 03/08/21 06:20 Albumin/Globulin Ratio 0.5 Ratio (1.1-2.1) L 03/08/21 06:20 Opioid Opioid Risk Tool Age (Adonay box if 16-45): No History of Preadolescent Sexual Abuse: No Total: 0 Total Score Risk Category: Low Risk Copyright: George VALADEZ predicting aberrant behaviors
[2021-03-08] MEDS ORDERED: D50W ABBOJECT SYR IV ONE ×2 (06:15→14:41)
[2021-03-08] MEDS ORDERED: D50W ABBOJECT SYR ONE (06:16)
[2021-03-08] MEDS ORDERED: DEXTROSE 10% 1,000 ML IV ONE ×3 (06:16→16:06)
[2021-03-08 06:48] LABS: ALANINE AMINOTRANSFERASE 16 Units/L (12-78); ALBUMIN 2.9 g/dL (3.4-5.0); ALKALINE PHOSPHATASE 173 Units/L (46-116); ASPARTATE AMINO TRANSFERASE 28 Units/L (15-37); BLOOD UREA NITROGEN 13 mg/dL (7-18); CARBON DIOXIDE 19.2 mmol/L (21-32); CHLORIDE 105 mmol/L (98-107); COR CA(FOR HYPOALB) 9.9 mg/dL (8.5-10.1); CREATININE 2.05 mg/dL (0.70-1.30); SODIUM 138 mmol/L (136-145); TOTAL PROTEIN 8.3 g/dL (6.4-8.2); eGFR NON BLACK RACES 35 (>60)
--- NOTE | 2021-03-08 13:12 | DR.GENAD ---
HPI Time Seen Time Seen by Provider: 03/08/21 06:00 PCP Primary Care Physician: kanchan HPI Comment HPI Comment: PATIENT IS 65YR OLD MALE WITH HISTORY OF DM IN ER VIA FOR UNRESPONSIVENESS AND LOW BLOOD SUGAR. EMS GAVE PATIENT D50 AND HE BECAME ALERT. CLAMY IN ER. DENIES CHEST PAIN, FEVER, COUGH CONGESTION OR DYSURIA. POOR APPETITE ON MEDICATION TO INCREASE APPETITE. Complaint/Symptoms Chief Complaint Doctors Comments: UNRESPONSIVE, LOW BLOOD GLUCOSE. Chief Complaint:: EMS CALLED OUT TO LOW BLOOD SUGAR UPON ARRIVAL PT WAS UNRESPONSIVE OTBS ONLY SHOWED LOW. AMP D 50 GIVEN BLOOD SUGAR UP TO 250. ON ARRIVAL TO ED OTBS 136 PT COOL AND CLAMMY. C/O X 3 COVID-19 Coronavirus risk:travel/contact w/high risk person: No Has patient experienced Coronavirus symptoms: No Nurses notes reviewed Nurses Notes Review: Yes Source History Provided: Patient and EMS Mode of Arrival Mode of Arrival: Ambulatory Timing Onset of Chief Complaint: 03/08/21 Came on: At Night Duration Duration: Since Onset Duration: Hours Severity Severity: Severe Modifying Factors Worsens:: not eating Improves:: po intake and D50 Associated Signs and Symptoms Associated Signs and Symptoms: ANOREXIA Other History Other History: DM. PMH PMH Past Medical History: Yes Past Medical History: Anemia, Anxiety, Arthritis and Diabetes Past Medical History Comment: HIV + Past Surgical History: No Surgical History: No History Family History History of Family Medical Conditions: Yes Family Medical History: Diabetes Mellitus, Cancer, [place], Coronary Artery Disease and Hypertension Social History Does patient currently use any type of tobacco product: Yes Have you used tobacco products in the last 12 months: Yes Type of Tobacco Use: Cigarettes Alcohol Use: None Do you use any recreational Drugs:: No Lives With: Family Lives Where: Home Travel Risk Coronavirus risk:travel/contact w/high risk person: No Has patient experienced Coronavirus symptoms: No Infectious screening Have you traveled outside the country in the last 6 months?: No Isolation: Standard ROS Review of Systems Constitutional: See HPI, Weakness, Fatigue and Loss of Appetite; negative Fever Eyes: No Symptoms Reported and See HPI; negative Blurred Vision ENTM: No Symptoms Reported and See HPI; negative Nose Discharge and Nose Congestion Respiratoy: No Symptoms Reported and See HPI; negative Moist Cough, Short of Breath and Wheezing Cardiovascular: No Symptoms Reported and See HPI; negative Chest Pain Gastrointestinal/Abdominal: See HPI and Other (POOR APPETITE.); negative Abdominal Pain, Diarrhea and Vomiting Genitourinary: No Symptoms Reported and See HPI; negative Dysuria and Hematuria Neurological: See HPI and Weakness; negative Headache and Dizziness Musculoskeletal: No Symptoms Reported and See HPI; negative Back Pain and Muscle Pain Integumentary: No Symptoms Reported and See HPI; negative Change in Color, Rash and Juandice Hematologic/Lymphatic: See HPI and Easy Bruising; negative Swollen Glands Endocrine: No Symptoms Reported and See HPI; negative Increased Thirst and Increased Urine Psychiatric: No Symptoms Reported and See HPI All Other Systems: Reviewed and Negative PE Vital Signs Vitals: Temperature 97 F Pulse Rate 82 Respiratory Rate 30 Blood Pressure [Right Arm] 111/77 Blood Pressure 103/67 O2 Sat by Pulse Oximetry 100 General Limitations: No Limitations General Appearance: Alert and In No Apparent Distress Head Head Exam: Normal Inspection and Atraumatic Eyes Eye exam: Normal Appearance and PERRL; negative Scleral Icterus and Conjunctival Injection ENT ENT Exam: Normal Exam, Normal Oropharynx, Normal External Ear Exam and TM's Normal Bilaterally External Ear Exam: Normal External Inspection; negative Mastoid Tenderness TM/Canal Exam: Bilateral: Normal Nose Exam: Normal Nose Exam Mouth Exam: Normal Inspection; negative Lip Swelling and Tongue Swelling Throat Exam: Normal Inspection; negative Tonsillar Erythema, Tonsillomegaly and Tonsillar Exudate Neck Neck Exam: Normal Inspection and Trachea Midline; negative Tenderness and Lymphadenopathy Chest Chest Inspection: Normal Inspection and Symmetric Chest Wall Rise; negative Tenderness Respiratory Respiratory Exam: Normal Lung Sounds Bilat; negative Accessory Muscle Use, Chest Wall Tenderness and Respiratory Distress Respiratory Exam: Bilateral: Rhonchi and Lower: Rhonchi Cardiovascular Cardiovascular Exam: Regular Rate, Normal Rhythm and Normal Heart Sounds; negative Systolic Murmur and Diastolic Murmur Abdominal Exam Abdominal Exam: Normal Inspection, Normal Bowel Sounds and Soft; negative Tenderness Extremities Extremities Exam: Normal Inspection and Normal Capillary Refill; negative Tenderness Back Back Exam: Normal Inspection; negative (R) CVA Tenderness and (L) CVA Tenderness Neurologic Neurological Exam: Alert and Oriented X3; negative Motor Sensory Deficit Psychiatric Psychiatric Exam: Normal Affect and Normal Mood Skin Skin Exam: Warm, Dry, Intact and Normal Color MDM Differential Diagnosis Differential Diagnosis: HYPOGLYCEMIA, UNRESPONSIVE, UTI, PNEUMONIA, SEPSIS, ANOREXIA. COURSE Treatment Treatment: SEE ORDERS. Reevaluation 1st: Improved (PATIENT RESPONSIVE AFTER EMS GAVE D50.) Education/Counseling Education/Counseling: Patient Educated On: Diagnosis [facility]OR Labs Reviewed Laboratory Results Reviewed?: Yes Result Diagrams: 03/22/21 09:46 03/22/21 09:46 Laboratory: Sodium 134 mmol/L (136-145) L 03/08/21 15:05 Corrected Sodium TNP 03/08/21 15:05 Potassium 3.9 mmol/L (3.5-5.1) 03/08/21 15:05 Chloride 103 mmol/L (98-107) 03/08/21 15:05 Carbon Dioxide 15.3 mmol/L (21-32) L 03/08/21 15:05 BUN 11 mg/dL (7-18) 03/08/21 15:05 Creatinine 1.92 mg/dL (0.70-1.30) H 03/08/21 15:05 Est GFR (MDRD) Af Amer 46 (>60) L 03/08/21 15:05 Est GFR (MDRD) Non-Af 38 (>60) L 03/08/21 15:05 Glucose 109 mg/dL (65-99) H 03/08/21 15:05 POC Glucose (mg/dL) 42 mg/dL (65-99) 03/08/21 14:33 Calcium 8.3 mg/dL (8.5-10.1) L 03/08/21 15:05 Corrected Calcium 9.5 mg/dL (8.5-10.1) 03/08/21 15:05 Total Bilirubin 0.30 mg/dL (0.2-1.0) 03/08/21 15:05 AST 26 Units/L (15-37) 03/08/21 15:05 ALT 8 Units/L (12-78) L 03/08/21 15:05 Alkaline Phosphatase 147 Units/L (46-116) H 03/08/21 15:05 Total Protein 7.2 g/dL (6.4-8.2) 03/08/21 15:05 Albumin 2.5 g/dL (3.4-5.0) L 03/08/21 15:05 Globulin 4.7 g/dL (2.5-4.5) H 03/08/21 15:05 Albumin/Globulin Ratio 0.5 Ratio (1.1-2.1) L 06/11/21 15:05 XRAY XRAY Interpreted by: Radiologist (REPORT NOTED AND DISCUSSED WITH PATIENT.) and Self Opioid Opioid Risk Tool Age (Adonay box if 16-45): No History of Preadolescent Sexual Abuse: No Total: 0 Total Score Risk Category: Low Risk Copyright: George VALADEZ predicting aberrant behaviors Diagnosis Discharge Problem: Hypoglycemia, Acute renal insufficiency Hypotension Qualifiers: Hypotension type: unspecified hypotension type Qualified Code(s): I95.9 - Hypotension, unspecified Instructions Instructions: Colonoscopy, Adult, Care After, [id number] Steps to Quit Smoking, [id number] Helicobacter Pylori Infection Chronic Obstructive Pulmonary Disease Exacerbation, [id number] Preventing Hypoglycemia HIV Infection and AIDS How to Use a Walker Forms: Excuse From Work or School Precautions for COVID19 Patient Portal Social Distancing
[2021-03-08 15:26] LABS: ALANINE AMINOTRANSFERASE 8 Units/L (12-78); ALBUMIN 2.5 g/dL (3.4-5.0); ALKALINE PHOSPHATASE 147 Units/L (46-116); ASPARTATE AMINO TRANSFERASE 26 Units/L (15-37); BLOOD UREA NITROGEN 11 mg/dL (7-18); CALCIUM 8.3 mg/dL (8.5-10.1); CARBON DIOXIDE 15.3 mmol/L (21-32); CHLORIDE 103 mmol/L (98-107); COR CA(FOR HYPOALB) 9.5 mg/dL (8.5-10.1); CREATININE 1.92 mg/dL (0.70-1.30); SODIUM 134 mmol/L (136-145); TOTAL PROTEIN 7.2 g/dL (6.4-8.2); eGFR NON BLACK RACES 38 (>60)
[2021-03-08] MEDS: DEXTROSE 10% 1,000 ML IV PRN ×2 (16:15→23:57)
[2021-03-08 19:48] LABS: BILIRUBIN,URINE NEGATIVE (NEGATIVE); BLOOD/HEMOGLOBIN,URINE NEGATIVE (NEGATIVE); GLUCOSE, URINE NEGATIVE (NEGATIVE); KETONES,URINE NEGATIVE (NEGATIVE); LEUKOCYTE ESTERASE ,URINE NEGATIVE (NEGATIVE); NITRITES,URINE NEGATIVE (NEGATIVE); PROTEIN,URINE NEGATIVE (NEGATIVE); UROBILINOGEN,URINE NORMAL (NORMAL)
[2021-03-08 19:51] LABS: APPEARANCE,URINE CLEAR (CLEAR); COLOR,URINE STRAW (YELLOW)
[2021-03-09 06:35] LABS: BASOPHILS # (AUTO) 0.1 X10^3/uL (0.0-0.1); BASOPHILS % (AUTO) 1.3 % (0.2-1.0); EOSINOPHILS # (AUTO) 0.6 x10^3/uL (0.0-0.2); EOSINOPHILS % (AUTO) 11.7 % (0.9-2.9); HEMATOCRIT 28.8 % (42.0-54.0); HEMOGLOBIN 9.6 g/dL (13.5-18.0); LYMPHOCYTES # (AUTO) 1.5 X10^3/uL (1.3-2.9); MEAN CORPUSCULAR HGB CONC 33.4 g/dL (33.0-35.0); MEAN CORPUSCULAR VOLUME 89.6 fL (80.0-100.0); MEAN PLATELET VOLUME 7.9 fL (7.4-11.0); MONOCYTES # (AUTO) 0.5 x10^3/uL (0.3-0.8); MONOCYTES % (AUTO) 10.1 % (0.0-13.0); NEUTROPHILS # (AUTO) 2.1 x10^3/uL (2.2-4.8); NEUTROPHILS % (AUTO) 44.9 % (42.0-75.0); PLATELET COUNT 330 X10^3/uL (150.0-450.0); RED BLOOD COUNT 3.22 X10^6/uL (4.7-6.0); RED CELL DISTRIBUTION WIDTH 13.2 % (11.6-16.5); WHITE BLOOD COUNT 4.8 X10^3/uL (3.6-10.0)
[2021-03-09 06:51] LABS: ALBUMIN 2.5 g/dL (3.4-5.0); CALCIUM 8.4 mg/dL (8.5-10.1); CARBON DIOXIDE 19.5 mmol/L (21-32); COR CA(FOR HYPOALB) 9.6 mg/dL (8.5-10.1); CREATININE 1.7 mg/dL (0.70-1.30); TOTAL PROTEIN 7.2 g/dL (6.4-8.2)
[2021-03-09] MEDS ORDERED: HumuLIN R SUBCUT PRN (08:18)
[2021-03-09 09:00] VITALS: BMI 20.8
[2021-03-09] MEDS: BIAXIN TAB 500 MG PO SCH ×2 (11:03→20:07)
[2021-03-09] MEDS: LAMIVUDINE 150 MG PO SCH (11:04)
[2021-03-09] MEDS: REQUIP PO SCH ×2 (11:04→20:08)
[2021-03-09] MEDS: ELIQUIS PO SCH ×2 (11:04→20:08)
[2021-03-09] MEDS: FERROUS GLUCONATE PO SCH (11:05)
[2021-03-09] MEDS: RALTEGRAVIR 600 MG PO SCH (11:05)
[2021-03-09] MEDS ORDERED: NS 1000 ML 1,000 ML IV ONE (15:56)
[2021-03-09] MEDS: D5W 1000 ML IV 1,000 ML IV SCH (17:45)
[2021-03-10] MEDS: D5W 1000 ML IV 1,000 ML IV SCH ×3 (01:01→17:56)
[2021-03-10] MEDS ORDERED: ZOFRAN INJ 4 MG VIAL IVP PRN (07:43)
[2021-03-10] MEDS: BIAXIN TAB 500 MG PO SCH ×2 (08:41→20:20)
[2021-03-10] MEDS: REQUIP PO SCH ×2 (08:48→20:20)
[2021-03-10] MEDS: ELIQUIS PO SCH ×2 (08:48→20:20)
[2021-03-10] MEDS: RALTEGRAVIR 600 MG PO SCH (08:48)
[2021-03-10] MEDS: LAMIVUDINE 150 MG PO SCH (08:48)
[2021-03-10] MEDS: FERROUS GLUCONATE PO SCH (08:49)
[2021-03-10] MEDS ORDERED: PHENERGAN TAB 25 MG PO PRN (13:20)
[2021-03-10] MEDS: SNACK - Diabetic Appropriate PO SCH (20:22)
[2021-03-11] MEDS: D5W 1000 ML IV 1,000 ML IV SCH ×3 (01:57→21:10)
[2021-03-11 05:04] LABS: BASOPHILS % (AUTO) 0.9 % (0.2-1.0); EOSINOPHILS # (AUTO) 0.6 x10^3/uL (0.0-0.2); EOSINOPHILS % (AUTO) 14.3 % (0.9-2.9); HEMATOCRIT 26.6 % (42.0-54.0); HEMOGLOBIN 8.9 g/dL (13.5-18.0); LYMPHOCYTES # (AUTO) 1.5 X10^3/uL (1.3-2.9); LYMPHOCYTES % (AUTO) 33.6 % (21.0-51.0); MEAN CORPUSCULAR HEMOGLOBIN 29.6 pg (27.0-34.0); MEAN CORPUSCULAR HGB CONC 33.5 g/dL (33.0-35.0); MEAN CORPUSCULAR VOLUME 88.5 fL (80.0-100.0); MONOCYTES # (AUTO) 0.5 x10^3/uL (0.3-0.8); MONOCYTES % (AUTO) 11.2 % (0.0-13.0); NEUTROPHILS # (AUTO) 1.8 x10^3/uL (2.2-4.8); PLATELET COUNT 309 X10^3/uL (150.0-450.0); RED CELL DISTRIBUTION WIDTH 12.9 % (11.6-16.5); WHITE BLOOD COUNT 4.4 X10^3/uL (3.6-10.0)
[2021-03-11 05:22] LABS: ALANINE AMINOTRANSFERASE 19 Units/L (12-78); ALBUMIN 2.3 g/dL (3.4-5.0); ALKALINE PHOSPHATASE 137 Units/L (46-116); ASPARTATE AMINO TRANSFERASE 29 Units/L (15-37); BLOOD UREA NITROGEN 7 mg/dL (7-18); CALCIUM 8.4 mg/dL (8.5-10.1); CARBON DIOXIDE 22.3 mmol/L (21-32); CHLORIDE 100 mmol/L (98-107); COR CA(FOR HYPOALB) 9.8 mg/dL (8.5-10.1); SODIUM 131 mmol/L (136-145); TOTAL PROTEIN 6.7 g/dL (6.4-8.2); eGFR NON BLACK RACES 54 (>60)
[2021-03-11] MEDS ORDERED: PROTONIX INJ 40 MG VIAL IVP SCH (10:00)
[2021-03-11] MEDS: RALTEGRAVIR 600 MG PO SCH (10:28)
[2021-03-11] MEDS: ELIQUIS PO SCH ×2 (10:29→21:06)
[2021-03-11] MEDS: PERIACTIN TAB 4 MG PO SCH ×3 (10:29→21:06)
[2021-03-11] MEDS: REQUIP PO SCH ×2 (10:29→21:06)
[2021-03-11] MEDS: BIAXIN TAB 500 MG PO SCH ×2 (10:29→21:06)
[2021-03-11] MEDS: FERROUS GLUCONATE PO SCH (10:30)
[2021-03-11] MEDS: NS 1000 ML 1,000 ML IV SCH (11:00)
--- NOTE | 2021-03-11 12:09 | RAD ---
CHEST, 1 VIEWHISTORY: COPD, PNEUMONIAStudy: Single view of the chest.Comparison:February 22, 2021Findings:The cardiomediastinal silhouette is normal. No change in the appearance of possible vascular congestion. Osseous structures demonstrate no acute abnormality.IMPRESSION:1. Possible vascular congestion without definite acute abnormality. No significant change from prior.Electronically signed by: LORENZO LEYVA (Mar 11, 2021 12:07:31)
--- NOTE | 2021-03-11 18:15 | PCM.PROG ---
Progress Note - Progress Note for Day of Date of Exam: 03/11/21 - Subjective Subjective: PT IS 65 BM ER ADMISSION WITH HYPOGLYCEMIA DUE TO ANOREXIA AND STILL TAKING INSULIN AT HOME. PT WAS RECENTLY TREATED FOR H PYLORI AND ON PPI THERAPY AND ANTIBIOTICS, ALSO HAD PNEUMONIA ON PREVIOUS ADMISSION. PT REPORTS IMPROVING URINE OUTPT, BUT DID NOT REST LAST NIGHT DUE TO INCREASED URINATION. NA 131 THIS AM SO IV FLUIDS TO NS AT 50CC/HR. RESTARTED PPI BID IV AND WILL OBTAIN CXR TODAY. PT HAD BIBASILAR DIMINISHED LUNG SOUNDS, DENIES ANY CHEST PAIN THIS MORNING. - Past Medical Family Social History Past Med/Fam/Surg Hx: No changes since H&P Allergies: Allergies No Known Drug Allergies Allergy (Verified 03/08/21 17:57) - Review of Systems ROS: No change since H&P - Vital Signs and I&O's Vital Signs: Temperature 97.7 F Pulse Rate [Left Brachial] 92 Pulse Rate 95 Respiratory Rate 18 Blood Pressure [Left Arm] 104/63 Blood Pressure [Right Arm] 110/59 Blood Pressure 98/58 O2 Sat by Pulse Oximetry 97 Intake and Output: Intake & Output 03/09/21 03/10/21 03/11/21 03/12/21 11:59 11:59 11:59 11:59 Intake Total 2226 / 2226 1193 / 1193 3605 / 3605 640 / 640 Output Total 825 / 825 1041 / 1041 1820 / 1820 400 / 400 Balance 1401 / 1401 152 / 152 1785 / 1785 240 / 240 - Physical Exam Oriented: Normal Eyes: Normal Ear: Normal Nose: Normal Throat: Dry Respiratory: Diminished Cardiovascular: Normal : Normal Auscultation: Bowel Sounds: Normal Tenderness: Epigastric Skin: Decreased Turgur Musculoskeletal: Back:Thoracic, Back:Lumbar Psychiatric: Anxiety Speech Pattern: Clear, Appropriate - Laboratory and Diagnostics Result Diagrams: 03/11/21 04:04 03/11/21 04:04 Labs: Laboratory WBC 4.4 X10^3/uL (3.6-10.0) 03/11/21 04:04 RBC 3.00 X10^6/uL (4.7-6.0) L 03/11/21 04:04 Hgb 8.9 g/dL (13.5-18.0) L 03/11/21 04:04 Hct 26.6 % (42.0-54.0) L 03/11/21 04:04 MCV 88.5 fL (80.0-100.0) 03/11/21 04:04 MCH 29.6 pg (27.0-34.0) 03/11/21 04:04 MCHC 33.5 g/dL (33.0-35.0) 03/11/21 04:04 RDW 12.9 % (11.6-16.5) 03/11/21 04:04 Plt Count 309 X10^3/uL (150.0-450.0) 03/11/21 04:04 MPV 8.0 fL (7.4-11.0) 03/11/21 04:04 Neut % (Auto) 40.0 % (42.0-75.0) L 03/11/21 04:04 Lymph % (Auto) 33.6 % (21.0-51.0) 03/11/21 04:04 [place] % (Auto) 11.2 % (0.0-13.0) 03/11/21 04:04 Eos % (Auto) 14.3 % (0.9-2.9) H 03/11/21 04:04 Baso % (Auto) 0.9 % (0.2-1.0) 03/11/21 04:04 Neut # (Auto) 1.8 x10^3/uL (2.2-4.8) L 03/11/21 04:04 Lymph # (Auto) 1.5 X10^3/uL (1.3-2.9) 03/11/21 04:04 [place] # (Auto) 0.5 x10^3/uL (0.3-0.8) 03/11/21 04:04 Eos # (Auto) 0.6 x10^3/uL (0.0-0.2) H 03/11/21 04:04 Baso # (Auto) 0.0 X10^3/uL (0.0-0.1) 03/11/21 04:04 Absolute Nucleated RBC 0.1 /100WBC 03/11/21 04:04 Sodium 131 mmol/L (136-145) L 03/11/21 04:04 Corrected Sodium TNP 03/11/21 04:04 Potassium 3.9 mmol/L (3.5-5.1) 03/11/21 04:04 Chloride 100 mmol/L (98-107) 03/11/21 04:04 Carbon Dioxide 22.3 mmol/L (21-32) 03/11/21 04:04 BUN 7 mg/dL (7-18) 03/11/21 04:04 Creatinine 1.40 mg/dL (0.70-1.30) H 03/11/21 04:04 Est GFR (MDRD) Af Amer > 60 (>60) 03/11/21 04:04 Est GFR (MDRD) Non-Af 54 (>60) L 03/11/21 04:04 Glucose 92 mg/dL (65-99) 03/11/21 04:04 POC Glucose (mg/dL) 109 mg/dL (65-99) H 03/11/21 16:56 Calcium 8.4 mg/dL (8.5-10.1) L 03/11/21 04:04 Corrected Calcium 9.8 mg/dL (8.5-10.1) 03/11/21 04:04 Total Bilirubin 0.50 mg/dL (0.2-1.0) 03/11/21 04:04 AST 29 Units/L (15-37) 03/11/21 04:04 ALT 19 Units/L (12-78) 03/11/21 04:04 Alkaline Phosphatase 137 Units/L (46-116) H 03/11/21 04:04 Total Protein 6.7 g/dL (6.4-8.2) 03/11/21 04:04 Albumin 2.3 g/dL (3.4-5.0) L 03/11/21 04:04 Globulin 4.4 g/dL (2.5-4.5) 03/11/21 04:04 Albumin/Globulin Ratio 0.5 Ratio (1.1-2.1) L 03/11/21 04:04 Triglycerides 159 mg/dL (0-150) H 03/09/21 06:03 Cholesterol 113 mg/dL (0-200) 03/09/21 06:03 LDL Cholesterol, Calc 53 mg/dL (0-100) 03/09/21 06:03 HDL Cholesterol 28 mg/dL (40-60) L 03/09/21 06:03 Cholesterol/HDL Ratio 4.0 (0.0-5.0) 03/09/21 06:03 Specimen Type Random urine 03/08/21 19:30 Urine Color Straw (YELLOW) 03/08/21 19:30 Urine Appearance Clear (CLEAR) 03/08/21 19:30 Urine pH 5.0 (5.0 - 8.0) 03/08/21 19:30 Ur Specific [place] 1.005 (1.000-1.030) 03/08/21 19:30 Urine Protein Negative (NEGATIVE) 03/08/21 19:30 Urine Glucose (UA) Negative (NEGATIVE) 03/08/21 19: Urine Ketones Negative (NEGATIVE) 03/08/21: Urine Occult Blood Negative (NEGATIVE) 03/08/21: Urine Nitrite Negative (NEGATIVE) 03/08/21 19:30 Urine Bilirubin Negative (NEGATIVE) 03/08/21 19:30 Urine Urobilinogen Normal (NORMAL) 03/08/21 19:30 Ur Leukocyte Esterase Negative (NEGATIVE) 03/08/21 19:30 - Plan (1) Hyponatremia Status: Acute Plan: CONTINUE GENTLE IV HYDRATION, CXR TODAY. RESP THERAPY FOR DUO NEBS AND ISO. AM LABS, ENCOURAGE ORAL HYDRATION. BP CONTROL, HOLD INSULIN. PT EVALUATION ALSO, NEEDS GI FU (2) Hypoglycemia Status: Acute (3) Acute renal failure Status: Acute Qualifiers: (4) Dehydration Status: Acute (5) Unexplained weight loss Status: Acute (6) Diabetes mellitus Status: Chronic (7) Human immunodeficiency virus disease Status: Chronic
[2021-03-11] MEDS: SNACK - Diabetic Appropriate PO SCH ×2 (20:40→21:10)
[2021-03-11] MEDS: PROTONIX INJ 40 MG VIAL IVP SCH (21:05)
[2021-03-11] MEDS: NORCO 5/325 MG TAB PO PRN (21:06)
[2021-03-11] MEDS: LAMIVUDINE 150 MG PO SCH (21:10)
[2021-03-12] MEDS: NS 1000 ML 1,000 ML IV SCH ×3 (00:06→14:10)
[2021-03-12] MEDS: PERIACTIN TAB 4 MG PO SCH ×3 (05:26→21:16)
[2021-03-12 06:01] LABS: BASOPHILS % (AUTO) 0.9 % (0.2-1.0); EOSINOPHILS # (AUTO) 0.9 x10^3/uL (0.0-0.2); EOSINOPHILS % (AUTO) 19.3 % (0.9-2.9); HEMOGLOBIN 9.2 g/dL (13.5-18.0); LYMPHOCYTES # (AUTO) 1.5 X10^3/uL (1.3-2.9); LYMPHOCYTES % (AUTO) 32.2 % (21.0-51.0); MEAN CORPUSCULAR HEMOGLOBIN 30.2 pg (27.0-34.0); MEAN CORPUSCULAR VOLUME 89.1 fL (80.0-100.0); MEAN PLATELET VOLUME 7.8 fL (7.4-11.0); MONOCYTES # (AUTO) 0.6 x10^3/uL (0.3-0.8); MONOCYTES % (AUTO) 12.9 % (0.0-13.0); NEUTROPHILS # (AUTO) 1.6 x10^3/uL (2.2-4.8); NEUTROPHILS % (AUTO) 34.7 % (42.0-75.0); PLATELET COUNT 320 X10^3/uL (150.0-450.0); RED BLOOD COUNT 3.04 X10^6/uL (4.7-6.0); RED CELL DISTRIBUTION WIDTH 13.1 % (11.6-16.5); WHITE BLOOD COUNT 4.7 X10^3/uL (3.6-10.0)
[2021-03-12 06:13] LABS: ALANINE AMINOTRANSFERASE 16 Units/L (12-78); ALBUMIN 2.5 g/dL (3.4-5.0); ALKALINE PHOSPHATASE 143 Units/L (46-116); ASPARTATE AMINO TRANSFERASE 26 Units/L (15-37); BLOOD UREA NITROGEN 9 mg/dL (7-18); CALCIUM 8.7 mg/dL (8.5-10.1); CARBON DIOXIDE 21.3 mmol/L (21-32); CHLORIDE 105 mmol/L (98-107); COR CA(FOR HYPOALB) 9.9 mg/dL (8.5-10.1); CREATININE 1.44 mg/dL (0.70-1.30); SODIUM 137 mmol/L (136-145); TOTAL PROTEIN 6.8 g/dL (6.4-8.2); eGFR NON BLACK RACES 53 (>60)
[2021-03-12] MEDS ORDERED: LASIX IVP SCH (09:00)
[2021-03-12] MEDS: ELIQUIS PO SCH ×2 (09:17→21:13)
[2021-03-12] MEDS: REQUIP PO SCH ×2 (09:17→21:16)
[2021-03-12] MEDS: BIAXIN TAB 500 MG PO SCH ×2 (09:18→21:13)
[2021-03-12] MEDS: FERROUS GLUCONATE PO SCH (09:18)
[2021-03-12] MEDS: PROTONIX INJ 40 MG VIAL IVP SCH ×2 (09:19→21:11)
[2021-03-12] MEDS: RALTEGRAVIR 600 MG PO SCH (09:20)
[2021-03-12] MEDS: NORCO 5/325 MG TAB PO PRN ×2 (09:25→21:14)
[2021-03-12] MEDS: VOLTAREN 1 % GEL MULTI DOSE TUBE TOP SCH ×3 (10:37→21:15)
[2021-03-12] MEDS: NEURONTIN CAP 100 MG PO SCH ×3 (10:37→21:13)
[2021-03-12] MEDS: SNACK - Diabetic Appropriate PO SCH (20:12)
[2021-03-13] MEDS: NS 1000 ML 1,000 ML IV SCH ×2 (04:00→18:22)
[2021-03-13 05:04] LABS: BASOPHILS % (AUTO) 0.9 % (0.2-1.0); EOSINOPHILS # (AUTO) 0.8 x10^3/uL (0.0-0.2); EOSINOPHILS % (AUTO) 22.7 % (0.9-2.9); HEMATOCRIT 23.5 % (42.0-54.0); HEMOGLOBIN 7.9 g/dL (13.5-18.0); LYMPHOCYTES # (AUTO) 1.3 X10^3/uL (1.3-2.9); LYMPHOCYTES % (AUTO) 34.8 % (21.0-51.0); MEAN CORPUSCULAR HEMOGLOBIN 29.9 pg (27.0-34.0); MEAN CORPUSCULAR HGB CONC 33.5 g/dL (33.0-35.0); MEAN CORPUSCULAR VOLUME 89.4 fL (80.0-100.0); MONOCYTES # (AUTO) 0.5 x10^3/uL (0.3-0.8); MONOCYTES % (AUTO) 13.2 % (0.0-13.0); NEUTROPHILS % (AUTO) 28.4 % (42.0-75.0); PLATELET COUNT 277 X10^3/uL (150.0-450.0); RED BLOOD COUNT 2.63 X10^6/uL (4.7-6.0); RED CELL DISTRIBUTION WIDTH 13.4 % (11.6-16.5); WHITE BLOOD COUNT 3.6 X10^3/uL (3.6-10.0)
[2021-03-13 05:14] LABS: ALANINE AMINOTRANSFERASE 15 Units/L (12-78); ALKALINE PHOSPHATASE 115 Units/L (46-116); ASPARTATE AMINO TRANSFERASE 24 Units/L (15-37); BLOOD UREA NITROGEN 9 mg/dL (7-18); CALCIUM 7.3 mg/dL (8.5-10.1); CARBON DIOXIDE 18.4 mmol/L (21-32); CHLORIDE 111 mmol/L (98-107); COR CA(FOR HYPOALB) 8.9 mg/dL (8.5-10.1); CREATININE 1.39 mg/dL (0.70-1.30); SODIUM 141 mmol/L (136-145); TOTAL PROTEIN 5.7 g/dL (6.4-8.2); eGFR NON BLACK RACES 55 (>60)
[2021-03-13] MEDS: NEURONTIN CAP 100 MG PO SCH ×2 (05:17→14:26)
[2021-03-13] MEDS: VOLTAREN 1 % GEL MULTI DOSE TUBE TOP SCH ×3 (05:18→21:50)
[2021-03-13] MEDS: PERIACTIN TAB 4 MG PO SCH ×3 (05:18→21:50)
[2021-03-13 05:36] LABS: HYPOCHROMASIA 1+; MICROCYTOSIS SLIGHT; PLATELET MORPHOLOGY COMMENT NORMAL (NORMAL)
--- NOTE | 2021-03-13 06:18 | RAD ---
HISTORYCHF, COPDSTUDYCHEST, 1 [id number]/14/2021FINDINGSThe trachea is midline. The cardiac silhouette is unremarkable . The lungs are clear without focal infiltrate or effusion. The bony thorax is unremarkable.IMPRESSIONNo acute cardiopulmonary disease.Electronically signed by: Luke Riddle (Mar 13, 2021 06:15:47)
[2021-03-13] MEDS: RALTEGRAVIR 600 MG PO SCH (09:03)
[2021-03-13] MEDS: REQUIP PO SCH ×2 (09:03→20:45)
[2021-03-13] MEDS: BIAXIN TAB 500 MG PO SCH ×2 (09:03→20:43)
[2021-03-13] MEDS: PROTONIX INJ 40 MG VIAL IVP SCH ×2 (09:03→20:43)
[2021-03-13] MEDS: ELIQUIS PO SCH ×2 (09:03→20:44)
[2021-03-13] MEDS: FERROUS GLUCONATE PO SCH (09:04)
[2021-03-13] MEDS: NORCO 5/325 MG TAB PO PRN (09:12)
[2021-03-13] MEDS ORDERED: NEURONTIN CAP 100 MG PO PRN (16:04)
[2021-03-13] MEDS: SNACK - Diabetic Appropriate PO SCH (20:44)
[2021-03-14 05:24] LABS: BASOPHILS # (AUTO) 0.1 X10^3/uL (0.0-0.1); BASOPHILS % (AUTO) 1.2 % (0.2-1.0); EOSINOPHILS % (AUTO) 23.6 % (0.9-2.9); HEMOGLOBIN 8.1 g/dL (13.5-18.0); LYMPHOCYTES # (AUTO) 1.2 X10^3/uL (1.3-2.9); LYMPHOCYTES % (AUTO) 28.6 % (21.0-51.0); MEAN CORPUSCULAR HEMOGLOBIN 30.1 pg (27.0-34.0); MEAN CORPUSCULAR HGB CONC 33.7 g/dL (33.0-35.0); MEAN CORPUSCULAR VOLUME 89.4 fL (80.0-100.0); MEAN PLATELET VOLUME 8.4 fL (7.4-11.0); MONOCYTES # (AUTO) 0.4 x10^3/uL (0.3-0.8); MONOCYTES % (AUTO) 10.4 % (0.0-13.0); NEUTROPHILS # (AUTO) 1.5 x10^3/uL (2.2-4.8); NEUTROPHILS % (AUTO) 36.2 % (42.0-75.0); PLATELET COUNT 309 X10^3/uL (150.0-450.0); RED BLOOD COUNT 2.68 X10^6/uL (4.7-6.0); RED CELL DISTRIBUTION WIDTH 13.4 % (11.6-16.5); WHITE BLOOD COUNT 4.1 X10^3/uL (3.6-10.0)
[2021-03-14] MEDS: PERIACTIN TAB 4 MG PO SCH ×3 (05:32→22:21)
[2021-03-14 05:35] LABS: ALANINE AMINOTRANSFERASE 12 Units/L (12-78); ALBUMIN 2.1 g/dL (3.4-5.0); ALKALINE PHOSPHATASE 118 Units/L (46-116); ASPARTATE AMINO TRANSFERASE 27 Units/L (15-37); BLOOD UREA NITROGEN 10 mg/dL (7-18); CALCIUM 7.8 mg/dL (8.5-10.1); CARBON DIOXIDE 18.3 mmol/L (21-32); CHLORIDE 110 mmol/L (98-107); COR CA(FOR HYPOALB) 9.3 mg/dL (8.5-10.1); CREATININE 1.58 mg/dL (0.70-1.30); SODIUM 140 mmol/L (136-145); TOTAL PROTEIN 5.9 g/dL (6.4-8.2); eGFR NON BLACK RACES 47 (>60)
[2021-03-14] MEDS: VOLTAREN 1 % GEL MULTI DOSE TUBE TOP SCH ×3 (05:39→22:22)
[2021-03-14 06:10] LABS: PLATELET MORPHOLOGY COMMENT NORMAL (NORMAL)
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
[2021-03-14 09:46] LABS: ABG BASE EXCESS -7.4 mmol/L (-2.0-2.0)
[2021-03-14 09:47] LABS: ABG HCO3 16.9 mmol/L (22-26)
[2021-03-14 09:57] LABS: LACTIC ACID 2.1 mmol/L (0.4-2.0)
[2021-03-14 09:58] LABS: SERUM ACETONE NEGATIVE (NEGATIVE)
[2021-03-14] MEDS: RALTEGRAVIR 600 MG PO SCH (10:00)
[2021-03-14] MEDS: FERROUS GLUCONATE PO SCH (10:00)
[2021-03-14] MEDS: PROTONIX INJ 40 MG VIAL IVP SCH ×2 (10:00→20:20)
[2021-03-14] MEDS: BIAXIN TAB 500 MG PO SCH ×2 (10:18→20:21)
[2021-03-14] MEDS: REQUIP PO SCH ×2 (10:18→20:20)
[2021-03-14] MEDS: ELIQUIS PO SCH ×2 (10:18→20:20)
[2021-03-14] MEDS: NS 1000 ML 1,000 ML IV SCH ×2 (16:21→17:58)
[2021-03-14] MEDS: SNACK - Diabetic Appropriate PO SCH (20:21)
[2021-03-15] MEDS: NS 1000 ML 1,000 ML IV SCH (02:21)
[2021-03-15] MEDS: PERIACTIN TAB 4 MG PO SCH ×3 (05:22→21:08)
[2021-03-15] MEDS: VOLTAREN 1 % GEL MULTI DOSE TUBE TOP SCH ×3 (05:24→22:00)
[2021-03-15 06:01] LABS: BASOPHILS # (AUTO) 0.1 X10^3/uL (0.0-0.1); BASOPHILS % (AUTO) 1.2 % (0.2-1.0); EOSINOPHILS % (AUTO) 25.1 % (0.9-2.9); HEMOGLOBIN 7.4 g/dL (13.5-18.0); LYMPHOCYTES # (AUTO) 1.4 X10^3/uL (1.3-2.9); LYMPHOCYTES % (AUTO) 33.2 % (21.0-51.0); MEAN CORPUSCULAR HEMOGLOBIN 30.3 pg (27.0-34.0); MEAN CORPUSCULAR HGB CONC 33.6 g/dL (33.0-35.0); MEAN CORPUSCULAR VOLUME 90.2 fL (80.0-100.0); MONOCYTES # (AUTO) 0.5 x10^3/uL (0.3-0.8); NEUTROPHILS # (AUTO) 1.2 x10^3/uL (2.2-4.8); NEUTROPHILS % (AUTO) 28.5 % (42.0-75.0); PLATELET COUNT 310 X10^3/uL (150.0-450.0); RED BLOOD COUNT 2.44 X10^6/uL (4.7-6.0); RED CELL DISTRIBUTION WIDTH 13.1 % (11.6-16.5); WHITE BLOOD COUNT 4.2 X10^3/uL (3.6-10.0)
[2021-03-15 06:03] LABS: ALANINE AMINOTRANSFERASE 9 Units/L (12-78); ALBUMIN 1.9 g/dL (3.4-5.0); ALKALINE PHOSPHATASE 105 Units/L (46-116); ASPARTATE AMINO TRANSFERASE 20 Units/L (15-37); BLOOD UREA NITROGEN 9 mg/dL (7-18); CALCIUM 7.3 mg/dL (8.5-10.1); CARBON DIOXIDE 17.1 mmol/L (21-32); CHLORIDE 112 mmol/L (98-107); SODIUM 141 mmol/L (136-145); TOTAL PROTEIN 5.4 g/dL (6.4-8.2); eGFR NON BLACK RACES 50 (>60)
[2021-03-15] MEDS: ACCUNEB 1.25 MG NEBULE NEB SCH ×3 (06:50→15:57)
[2021-03-15 06:51] LABS: SERUM ACETONE NEGATIVE (NEGATIVE)
[2021-03-15 07:17] LABS: LACTIC ACID 1.6 mmol/L (0.4-2.0)
[2021-03-15] MEDS ORDERED: PULMICORT NEB TX 0.5 MG NEB ONE (07:21)
[2021-03-15 07:23] LABS: PLATELET MORPHOLOGY COMMENT NORMAL (NORMAL)
[2021-03-15] MEDS: PULMICORT NEB TX 0.5 MG NEB SCH ×2 (08:00→20:40)
[2021-03-15] MEDS: REQUIP PO SCH ×2 (09:52→21:07)
[2021-03-15] MEDS: BIAXIN TAB 500 MG PO SCH (09:52)
[2021-03-15] MEDS: PROTONIX INJ 40 MG VIAL IVP SCH ×2 (09:53→21:07)
[2021-03-15] MEDS: FERROUS GLUCONATE PO SCH (09:57)
[2021-03-15] MEDS: RALTEGRAVIR 600 MG PO SCH (09:57)
[2021-03-15 11:29] LABS: BASOPHILS % (AUTO) 0.9 % (0.2-1.0); EOSINOPHILS # (AUTO) 1.2 x10^3/uL (0.0-0.2); EOSINOPHILS % (AUTO) 24.4 % (0.9-2.9); HEMATOCRIT 23.6 % (42.0-54.0); LYMPHOCYTES # (AUTO) 1.6 X10^3/uL (1.3-2.9); LYMPHOCYTES % (AUTO) 33.8 % (21.0-51.0); MEAN CORPUSCULAR HEMOGLOBIN 30.1 pg (27.0-34.0); MEAN CORPUSCULAR VOLUME 88.5 fL (80.0-100.0); MEAN PLATELET VOLUME 7.7 fL (7.4-11.0); MONOCYTES # (AUTO) 0.5 x10^3/uL (0.3-0.8); MONOCYTES % (AUTO) 10.8 % (0.0-13.0); NEUTROPHILS # (AUTO) 1.4 x10^3/uL (2.2-4.8); NEUTROPHILS % (AUTO) 30.1 % (42.0-75.0); PLATELET COUNT 336 X10^3/uL (150.0-450.0); RED BLOOD COUNT 2.67 X10^6/uL (4.7-6.0); RED CELL DISTRIBUTION WIDTH 13.4 % (11.6-16.5); WHITE BLOOD COUNT 4.8 X10^3/uL (3.6-10.0)
[2021-03-15 12:12] LABS: PLATELET MORPHOLOGY COMMENT NORMAL (NORMAL)
[2021-03-16] MEDS: ACCUNEB 1.25 MG NEBULE NEB SCH ×4 (00:45→17:33)
[2021-03-16 04:49] LABS: BASOPHILS % (AUTO) 0.3 % (0.2-1.0); EOSINOPHILS # (AUTO) 0.8 x10^3/uL (0.0-0.2); EOSINOPHILS % (AUTO) 17.4 % (0.9-2.9); HEMATOCRIT 24.3 % (42.0-54.0); HEMOGLOBIN 8.3 g/dL (13.5-18.0); LYMPHOCYTES # (AUTO) 1.5 X10^3/uL (1.3-2.9); LYMPHOCYTES % (AUTO) 31.7 % (21.0-51.0); MEAN CORPUSCULAR HEMOGLOBIN 30.1 pg (27.0-34.0); MEAN CORPUSCULAR HGB CONC 34.1 g/dL (33.0-35.0); MEAN CORPUSCULAR VOLUME 88.2 fL (80.0-100.0); MEAN PLATELET VOLUME 8.1 fL (7.4-11.0); MONOCYTES # (AUTO) 0.5 x10^3/uL (0.3-0.8); MONOCYTES % (AUTO) 11.3 % (0.0-13.0); NEUTROPHILS # (AUTO) 1.8 x10^3/uL (2.2-4.8); NEUTROPHILS % (AUTO) 39.3 % (42.0-75.0); PLATELET COUNT 387 X10^3/uL (150.0-450.0); RED BLOOD COUNT 2.76 X10^6/uL (4.7-6.0); RED CELL DISTRIBUTION WIDTH 13.3 % (11.6-16.5); WHITE BLOOD COUNT 4.6 X10^3/uL (3.6-10.0)
[2021-03-16 05:02] LABS: ALANINE AMINOTRANSFERASE 13 Units/L (12-78); ALBUMIN 2.5 g/dL (3.4-5.0); ALKALINE PHOSPHATASE 125 Units/L (46-116); ASPARTATE AMINO TRANSFERASE 24 Units/L (15-37); BLOOD UREA NITROGEN 10 mg/dL (7-18); CALCIUM 8.6 mg/dL (8.5-10.1); CHLORIDE 109 mmol/L (98-107); COR CA(FOR HYPOALB) 9.8 mg/dL (8.5-10.1); CREATININE 1.63 mg/dL (0.70-1.30); SODIUM 141 mmol/L (136-145); TOTAL PROTEIN 6.7 g/dL (6.4-8.2); eGFR NON BLACK RACES 46 (>60)
[2021-03-16] MEDS: PERIACTIN TAB 4 MG PO SCH ×3 (06:16→21:13)
[2021-03-16] MEDS: VOLTAREN 1 % GEL MULTI DOSE TUBE TOP SCH ×3 (06:39→21:21)
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
[2021-03-16] MEDS: FERROUS GLUCONATE PO SCH (09:27)
[2021-03-16] MEDS: REQUIP PO SCH ×2 (09:29→21:13)
[2021-03-16] MEDS: PROTONIX INJ 40 MG VIAL IVP SCH ×2 (09:30→21:14)
[2021-03-16] MEDS: RALTEGRAVIR 600 MG PO SCH (09:30)
[2021-03-16] MEDS: PULMICORT NEB TX 0.5 MG NEB SCH ×2 (09:36→20:13)
--- NOTE | 2021-03-16 11:27 | PCM.PROG ---
Progress Note Progress Note for Day of Date of Exam: 03/16/21 Subjective Subjective: Patient seen at bedside, no acute overnight events. He states his appetite is slightly better.He did work with PT a little bit and sat on the recliner for a bit yesterday. He has been ambulating to the bathroom, denies dizziness. Denies nausea, vomiting or diarrhea. Denies melena. He is awaiting rehab placement. Labs: Hgb 8.3, Na: 141 K: 4.6 BUN/Cr: 10/1.63 Glucose 67 CXR: chronic interstitial changes, no acute process FOBT pending Plan: continue current treatment, monitor H/H. Eliquis and heparin on hold due to anemia. Continue iron replacement. Continue appetite stimulant. Encourage PO intake. Continue duonebs. Monitor H/H, transfuse if below 7. Monitor Am labs and imaging. Past Medical Family Social History Past Med/Fam/Surg Hx: No changes since H&P Allergies: Allergies No Known Drug Allergies Allergy (Verified 03/08/21 17:57) Review of Systems ROS: No change since H&P Vital Signs and I&O's Vital Signs: Temperature 97.6 F Pulse Rate [Left Brachial] 80 Pulse Rate 88 Respiratory Rate 18 Blood Pressure [Left Arm] 112/78 Blood Pressure [Right Arm] 153/82 Blood Pressure 98/58 O2 Sat by Pulse Oximetry 89 Intake and Output: Intake & Output 03/13/21 03/14/21 03/15/21 03/16/21 23:59 23:59 23:59 23:59 Intake Total 2660 / 2660 667 / 667 2870 / 2870 200 / 200 Output Total 1000 / 1000 500 / 500 1550 / 1550 800 / 800 Balance 1660 / 1660 167 / 167 1320 / 1320 -600 / -600 Physical Exam Oriented: Normal Eyes: Normal Ear: Normal Nose: Normal Throat: Normal Respiratory: Generalized and Diminished Cardiovascular: Normal Auscultation: Bowel Sounds: Normal Tenderness: Epigastric Skin: Decreased Turgur Musculoskeletal: Back:Thoracic and Back:Lumbar Psychiatric: Anxiety Speech Pattern: Clear and Appropriate Laboratory and Diagnostics Result Diagrams: 03/16/21 04:29 03/16/21 04:29 Labs: 03/14/21 18:36 Blood Blood Culture - Final 03/14/21 18:29 Blood Blood Culture - Preliminary Laboratory WBC 4.6 X10^3/uL (3.6-10.0) 03/16/21 04:29 RBC 2.76 X10^6/uL (4.7-6.0) L 03/16/21 04:29 Hgb 8.3 g/dL (13.5-18.0) L 03/16/21 04:29 Hct 24.3 % (42.0-54.0) L 03/16/21 04:29 MCV 88.2 fL (80.0-100.0) 03/16/21 04:29 MCH 30.1 pg (27.0-34.0) 03/16/21 04:29 MCHC 34.1 g/dL (33.0-35.0) 03/16/21 04:29 RDW 13.3 % (11.6-16.5) 03/16/21 04:29 Plt Count 387 X10^3/uL (150.0-450.0) 03/16/21 04:29 Plt Count Comment Adequate (ADEQUATE) 03/15/21 11:20 MPV 8.1 fL (7.4-11.0) 03/16/21 04:29 Neut % (Auto) 39.3 % (42.0-75.0) L 03/16/21 04:29 Lymph % (Auto) 31.7 % (21.0-51.0) 03/16/21 04:29 [place] % (Auto) 11.3 % (0.0-13.0) 03/16/21 04:29 Eos % (Auto) 17.4 % (0.9-2.9) H 03/16/21 04:29 Baso % (Auto) 0.3 % (0.2-1.0) 03/16/21 04:29 Neut # (Auto) 1.8 x10^3/uL (2.2-4.8) L 03/16/21 04:29 Lymph # (Auto) 1.5 X10^3/uL (1.3-2.9) 03/16/21 04:29 [place] # (Auto) 0.5 x10^3/uL (0.3-0.8) 03/16/21 04:29 Eos # (Auto) 0.8 x10^3/uL (0.0-0.2) H 03/16/21 04:29 Baso # (Auto) 0.0 X10^3/uL (0.0-0.1) 03/16/21 04:29 Absolute Nucleated RBC 0.0 /100WBC 03/16/21 04:29 Total Counted 100 03/15/21 11:20 Neutrophils % (Manual) 34 % (39-76) L 03/15/21 11:20 Lymphocytes % (Manual) 42 % (13-43) 03/15/21 11:20 Monocytes % (Manual) 8 % (4-9) 03/15/21 11:20 Eosinophils % (Manual) 16 % (0-6) H 03/15/21 11:20 Plt Morphology Comment Normal (NORMAL) 03/15/21 11:20 RBC Morphology Normal (NORMAL) 03/15/21 11:20 Hypochromasia 1+ A 03/13/21 04:30 Microcytosis Slight A 03/13/21 04:30 Sample Site Right brachial 03/14/21 09:41 ABG pH 7.360 (7.35-7.45) 03/14/21 09:41 ABG pCO2 30.0 mmHg (35.0-45.0) L 03/14/21 09:41 ABG pO2 79.0 mmHg (80.0-100.0) L 03/14/21 09:41 ABG HCO3 16.9 mmol/L (22-26) L* 03/14/21 09:41 ABG O2 Saturation 95.0 % (90-100) 03/14/21 09:41 ABG Base Excess -7.4 mmol/L (-2.0-2.0) L 03/14/21 09:41 Jun Test Na 03/14/21 09:41 A-a Gradient 33.0 mmHg 03/14/21 09:41 FiO2 21.0 03/14/21 09:41 Blood Gas Comments Fariha well aw 03/14/21 09:41 Sodium 141 mmol/L (136-145) 03/16/21 04:29 Corrected Sodium TNP 03/16/21 04:29 Potassium 4.6 mmol/L (3.5-5.1) 03/16/21 04:29 Chloride 109 mmol/L (98-107) H 03/16/21 04:29 Carbon Dioxide 21.0 mmol/L (21-32) 03/16/21 04:29 BUN 10 mg/dL (7-18) 03/16/21 04:29 Creatinine 1.63 mg/dL (0.70-1.30) H 03/16/21 04:29 Est GFR (MDRD) Af Amer 55 (>60) L 03/16/21 04:29 Est GFR (MDRD) Non-Af 46 (>60) L 03/16/21 04:29 Glucose 73 mg/dL (65-99) 03/16/21 04:29 POC Glucose (mg/dL) 72 mg/dL (65-99) 03/16/21 10:43 Lactic Acid 1.6 mmol/L (0.4-2.0) 03/15/21 06:49 Calcium 8.6 mg/dL (8.5-10.1) 03/16/21 04:29 Corrected Calcium 9.8 mg/dL (8.5-10.1) 03/16/21 04:29 Iron 18 ug/dL (50-175) L 03/13/21 04:30 Transferrin 90 mg/dL (202-364) L 03/13/21 04:30 Ferritin 1775 ng/mL (26-388) H 03/13/21 04:30 Total Bilirubin 0.30 mg/dL (0.2-1.0) 03/16/21 04:29 AST 24 Units/L (15-37) 03/16/21 04:29 ALT 13 Units/L (12-78) 03/16/21 04:29 Alkaline Phosphatase 125 Units/L (46-116) H 03/16/21 04:29 Total Protein 6.7 g/dL (6.4-8.2) 03/16/21 04:29 Albumin 2.5 g/dL (3.4-5.0) L 03/16/21 04:29 Globulin 4.2 g/dL (2.5-4.5) 03/16/21 04:29 Albumin/Globulin Ratio 0.6 Ratio (1.1-2.1) L 03/16/21 04:29 Triglycerides 159 mg/dL (0-150) H 03/09/21 06:03 Cholesterol 113 mg/dL (0-200) 03/09/21 06:03 LDL Cholesterol, Calc 53 mg/dL (0-100) 03/09/21 06:03 HDL Cholesterol 28 mg/dL (40-60) L 03/09/21 06:03 Cholesterol/HDL Ratio 4.0 (0.0-5.0) 03/09/21 06:03 Vitamin B12 1176 pg/mL (193-986) H 03/13/21 04:30 Folate 6.7 ng/mL (>8.6) L 03/13/21 04:30 Specimen Type Random urine 03/08/21 19:30 Urine Color Straw (YELLOW) 03/08/21 19:30 Urine Appearance Clear (CLEAR) 03/08/21 19:30 Urine pH 5.0 (5.0 - 8.0) 03/08/21 19:30 Ur Specific [place] 1.005 (1.000-1.030) 03/08/21 19:30 Urine Protein Negative (NEGATIVE) 03/08/21 19:30 Urine Glucose (UA) Negative (NEGATIVE) 03/08/21 19:30 Urine Ketones Negative (NEGATIVE) 03/08/21 19:30 Urine Occult Blood Negative (NEGATIVE) 03/08/21 19:30 Urine Nitrite Negative (NEGATIVE) 03/08/21 19:30 Urine Bilirubin Negative (NEGATIVE) 03/08/21 19:30 Urine Urobilinogen Normal (NORMAL) 03/08/21 19:30 Ur Leukocyte Esterase Negative (NEGATIVE) 03/08/21 19:30 Acetone, Semi-Quant Negative (NEGATIVE) 03/15/21 06:49 Plan (1) Decreased appetite: Status: Acute (2) Generalized muscle weakness: Status: Acute (3) Anemia: Status: Acute Qualifiers: Anemia type: unspecified type Qualified Code(s): D64.9 - Anemia, unspecified (4) Hyponatremia: Status: Acute (5) Hypoglycemia: Status: Acute (6) Acute renal failure: Status: Acute Qualifiers: Acute renal failure type: unspecified Qualified Code(s): N17.9 - Acute kidney failure, unspecified (7) Dehydration: Status: Acute (8) Unexplained weight loss: Status: Acute (9) Diabetes mellitus: Status: Chronic Qualifiers: Diabetes mellitus type: type 2 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
[2021-03-16] MEDS: SNACK - Diabetic Appropriate PO SCH ×2 (18:56→20:00)
[2021-03-17] MEDS: ACCUNEB 1.25 MG NEBULE NEB SCH ×4 (00:05→17:02)
[2021-03-17 04:53] LABS: BASOPHILS # (AUTO) 0.1 X10^3/uL (0.0-0.1); BASOPHILS % (AUTO) 1.8 % (0.2-1.0); EOSINOPHILS # (AUTO) 0.6 x10^3/uL (0.0-0.2); EOSINOPHILS % (AUTO) 12.6 % (0.9-2.9); HEMATOCRIT 24.6 % (42.0-54.0); HEMOGLOBIN 8.4 g/dL (13.5-18.0); LYMPHOCYTES # (AUTO) 1.8 X10^3/uL (1.3-2.9); LYMPHOCYTES % (AUTO) 37.7 % (21.0-51.0); MEAN CORPUSCULAR HEMOGLOBIN 29.8 pg (27.0-34.0); MEAN CORPUSCULAR HGB CONC 34.3 g/dL (33.0-35.0); MEAN CORPUSCULAR VOLUME 86.9 fL (80.0-100.0); MEAN PLATELET VOLUME 8.3 fL (7.4-11.0); MONOCYTES # (AUTO) 0.5 x10^3/uL (0.3-0.8); NEUTROPHILS # (AUTO) 1.7 x10^3/uL (2.2-4.8); NEUTROPHILS % (AUTO) 36.9 % (42.0-75.0); PLATELET COUNT 420 X10^3/uL (150.0-450.0); RED BLOOD COUNT 2.83 X10^6/uL (4.7-6.0); RED CELL DISTRIBUTION WIDTH 13.2 % (11.6-16.5); WHITE BLOOD COUNT 4.6 X10^3/uL (3.6-10.0)
[2021-03-17 04:54] LABS: BLOOD UREA NITROGEN 10 mg/dL (7-18); CALCIUM 8.8 mg/dL (8.5-10.1); CARBON DIOXIDE 21.9 mmol/L (21-32); CHLORIDE 108 mmol/L (98-107); CREATININE 1.62 mg/dL (0.70-1.30); SODIUM 141 mmol/L (136-145); eGFR NON BLACK RACES 46 (>60)
[2021-03-17] MEDS: PERIACTIN TAB 4 MG PO SCH ×3 (05:00→21:05)
[2021-03-17] MEDS: VOLTAREN 1 % GEL MULTI DOSE TUBE TOP SCH ×3 (05:10→21:07)
[2021-03-17] MEDS: PROTONIX INJ 40 MG VIAL IVP SCH ×2 (08:50→21:06)
[2021-03-17] MEDS: RALTEGRAVIR 600 MG PO SCH (08:51)
[2021-03-17] MEDS: REQUIP PO SCH ×2 (08:51→21:05)
[2021-03-17] MEDS: FERROUS GLUCONATE PO SCH (08:52)
[2021-03-17] MEDS: PULMICORT NEB TX 0.5 MG NEB SCH ×2 (09:08→21:25)
[2021-03-17] MEDS: NS 1000 ML 1,000 ML IV SCH (10:50)
--- NOTE | 2021-03-17 11:22 | PCM.PROG ---
Progress Note Progress Note for Day of Date of Exam: 03/17/21 Subjective Subjective: Patient seen at bedside, no acute overnight events. He states his appetite is about the same, has not improved much. He did drink some Ensure yesterday. His BP was slightly low this morning, 95/67. He has been ambulating in the room and to the bathroom. He states he has some dry cough. Labs: Hgb 8.4, Na: 141 K: 4.4 BUN/Cr: 10/1.62 Glucose 75 FOBT pending Plan: Will repeat CXR due to wheezing on exam, continue nebs. Will start gentle hydration with NS @ 75cc/hr for a 1L bag. Continue current treatment, monitor H/H. Eliquis and heparin on hold due to anemia. Continue iron replacement. Continue appetite stimulant. Encourage PO intake. Monitor H/H, transfuse if below 7. Monitor Am labs and imaging. Past Medical Family Social History Past Med/Fam/Surg Hx: No changes since H&P Allergies: Allergies No Known Drug Allergies Allergy (Verified 03/08/21 17:57) Review of Systems ROS: No change since H&P Vital Signs and I&O's Vital Signs: Temperature 98.6 F Pulse Rate [Left Brachial] 81 Pulse Rate 84 Respiratory Rate 20 Blood Pressure [Left Arm] 112/78 Blood Pressure [Right Arm] 95/67 Blood Pressure 98/58 O2 Sat by Pulse Oximetry 94 Intake and Output: Intake & Output 03/14/21 03/15/21 03/16/21 03/17/21 23:59 23:59 23:59 23:59 Intake Total 667 / 667 2870 / 2870 480 / 480 200 / 200 Output Total 500 / 500 1550 / 1550 1150 / 1150 240 / 240 Balance 167 / 167 1320 / 1320 -670 / -670 -40 / -40 Physical Exam Oriented: Normal Eyes: Normal Ear: Normal Nose: Normal Throat: Normal Respiratory: Generalized, Diminished and Wheezes Cardiovascular: Normal Auscultation: Bowel Sounds: Normal Tenderness: Epigastric Skin: Decreased Turgur Musculoskeletal: Back:Thoracic and Back:Lumbar Psychiatric: Anxiety Speech Pattern: Clear and Appropriate Laboratory and Diagnostics Result Diagrams: 03/17/21 04:14 03/17/21 04:14 Labs: 03/14/21 18:36 Blood Blood Culture - Final 03/14/21 18:29 Blood Blood Culture - Preliminary Laboratory WBC 4.6 X10^3/uL (3.6-10.0) 03/17/21 04:14 RBC 2.83 X10^6/uL (4.7-6.0) L 03/17/21 04:14 Hgb 8.4 g/dL (13.5-18.0) L 03/17/21 04:14 Hct 24.6 % (42.0-54.0) L 03/17/21 04:14 MCV 86.9 fL (80.0-100.0) 03/17/21 04:14 MCH 29.8 pg (27.0-34.0) 03/17/21 04:14 MCHC 34.3 g/dL (33.0-35.0) 03/17/21 04:14 RDW 13.2 % (11.6-16.5) 03/17/21 04:14 Plt Count 420 X10^3/uL (150.0-450.0) 03/17/21 04:14 Plt Count Comment Adequate (ADEQUATE) 03/15/21 11:20 MPV 8.3 fL (7.4-11.0) 03/17/21 04:14 Neut % (Auto) 36.9 % (42.0-75.0) L 03/17/21 04:14 Lymph % (Auto) 37.7 % (21.0-51.0) 03/17/21 04:14 [place] % (Auto) 11.0 % (0.0-13.0) 03/17/21 04:14 Eos % (Auto) 12.6 % (0.9-2.9) H 03/17/21 04:14 Baso % (Auto) 1.8 % (0.2-1.0) H 03/17/21 04:14 Neut # (Auto) 1.7 x10^3/uL (2.2-4.8) L 03/17/21 04:14 Lymph # (Auto) 1.8 X10^3/uL (1.3-2.9) 03/17/21 04:14 [place] # (Auto) 0.5 x10^3/uL (0.3-0.8) 03/17/21 04:14 Eos # (Auto) 0.6 x10^3/uL (0.0-0.2) H 03/17/21 04:14 Baso # (Auto) 0.1 X10^3/uL (0.0-0.1) 03/17/21 04:14 Absolute Nucleated RBC 0.1 /100WBC 03/17/21 04:14 Total Counted 100 03/15/21 11:20 Neutrophils % (Manual) 34 % (39-76) L 03/15/21 11:20 Lymphocytes % (Manual) 42 % (13-43) 03/15/21 11:20 Monocytes % (Manual) 8 % (4-9) 03/15/21 11:20 Eosinophils % (Manual) 16 % (0-6) H 03/15/21 11:20 Plt Morphology Comment Normal (NORMAL) 03/15/21 11:20 RBC Morphology Normal (NORMAL) 03/15/21 11:20 Hypochromasia 1+ A 03/13/21 04:30 Microcytosis Slight A 03/13/21 04:30 Sample Site Right brachial 03/14/21 09:41 ABG pH 7.360 (7.35-7.45) 03/14/21 09:41 ABG pCO2 30.0 mmHg (35.0-45.0) L 03/14/21 09:41 ABG pO2 79.0 mmHg (80.0-100.0) L 03/14/21 09:41 ABG HCO3 16.9 mmol/L (22-26) L* 03/14/21 09:41 ABG O2 Saturation 95.0 % (90-100) 03/14/21 09:41 ABG Base Excess -7.4 mmol/L (-2.0-2.0) L 03/14/21 09:41 Jun Test Na 03/14/21 09:41 A-a Gradient 33.0 mmHg 03/14/21 09:41 FiO2 21.0 03/14/21 09:41 Blood Gas Comments Fariha well aw 03/14/21 09:41 Sodium 141 mmol/L (136-145) 03/17/21 04:14 Corrected Sodium TNP 03/17/21 04:14 Potassium 4.4 mmol/L (3.5-5.1) 03/17/21 04:14 Chloride 108 mmol/L (98-107) H 03/17/21 04:14 Carbon Dioxide 21.9 mmol/L (21-32) 03/17/21 04:14 BUN 10 mg/dL (7-18) 03/17/21 04:14 Creatinine 1.62 mg/dL (0.70-1.30) H 03/17/21 04:14 Est GFR (MDRD) Af Amer 56 (>60) L 03/17/21 04:14 Est GFR (MDRD) Non-Af 46 (>60) L 03/17/21 04:14 Glucose 86 mg/dL (65-99) 03/17/21 04:14 POC Glucose (mg/dL) 121 mg/dL (65-99) H 03/17/21 10:37 Lactic Acid 1.6 mmol/L (0.4-2.0) 03/15/21 06:49 Calcium 8.8 mg/dL (8.5-10.1) 03/17/21 04:14 Corrected Calcium 9.8 mg/dL (8.5-10.1) 03/16/21 04:29 Iron 18 ug/dL (50-175) L 03/13/21 04:30 Transferrin 90 mg/dL (202-364) L 03/13/21 04:30 Ferritin 1775 ng/mL (26-388) H 03/13/21 04:30 Total Bilirubin 0.30 mg/dL (0.2-1.0) 03/16/21 04:29 AST 24 Units/L (15-37) 03/16/21 04:29 ALT 13 Units/L (12-78) 03/16/21 04:29 Alkaline Phosphatase 125 Units/L (46-116) H 03/16/21 04:29 Total Protein 6.7 g/dL (6.4-8.2) 03/16/21 04:29 Albumin 2.5 g/dL (3.4-5.0) L 03/16/21 04:29 Globulin 4.2 g/dL (2.5-4.5) 03/16/21 04:29 Albumin/Globulin Ratio 0.6 Ratio (1.1-2.1) L 03/16/21 04:29 Triglycerides 159 mg/dL (0-150) H 03/09/21 06:03 Cholesterol 113 mg/dL (0-200) 03/09/21 06:03 LDL Cholesterol, Calc 53 mg/dL (0-100) 03/09/21 06:03 HDL Cholesterol 28 mg/dL (40-60) L 03/09/21 06:03 Cholesterol/HDL Ratio 4.0 (0.0-5.0) 03/09/21 06:03 Vitamin B12 1176 pg/mL (193-986) H 03/13/21 04:30 Folate 6.7 ng/mL (>8.6) L 03/13/21 04:30 Specimen Type Random urine 03/08/21 19:30 Urine Color Straw (YELLOW) 03/08/21 19:30 Urine Appearance Clear (CLEAR) 03/08/21 19:30 Urine pH 5.0 (5.0 - 8.0) 03/08/21 19:30 Ur Specific [place] 1.005 (1.000-1.030) 03/08/21 19:30 Urine Protein Negative (NEGATIVE) 03/08/21 19:30 Urine Glucose (UA) Negative (NEGATIVE) 03/08/21 19:30 Urine Ketones Negative (NEGATIVE) 03/08/21 19:30 Urine Occult Blood Negative (NEGATIVE) 03/08/21 19:30 Urine Nitrite Negative (NEGATIVE) 03/08/21 19:30 Urine Bilirubin Negative (NEGATIVE) 03/08/21 19:30 Urine Urobilinogen Normal (NORMAL) 03/08/21 19:30 Ur Leukocyte Esterase Negative (NEGATIVE) 03/08/21 19:30 Acetone, Semi-Quant Negative (NEGATIVE) 03/15/21 06:49 Plan (1) Decreased appetite: Status: Acute (2) Generalized muscle weakness: Status: Acute (3) Anemia: Status: Acute Qualifiers: Anemia type: unspecified type Qualified Code(s): D64.9 - Anemia, unspecified (4) Hyponatremia: Status: Acute Plan: CONTINUE GENTLE IV HYDRATION, CXR TODAY RESP THERAPY FOR DUO NEBS AND ISO AM LABS, ENCOURAGE ORAL HYDRATION BP CONTROL, HOLD INSULIN PT EVALUATION ALSO, NEEDS GI FU (5) Hypoglycemia: Status: Acute (6) Acute renal failure: Status: Acute Qualifiers: Acute renal failure type: unspecified Qualified Code(s): N17.9 - Acute kidney failure, unspecified (7) Dehydration: Status: Acute (8) Unexplained weight loss: Status: Acute (9) Diabetes mellitus: Status: Chronic Qualifiers: Diabetes mellitus complication detail: without coma Diabetes mellitus complication status: with hypoglycemia Diabetes mellitus [facility] insulin use: with [facility] use Diabetes mellitus type: type 2 Qualified Code(s): E11.649 - Type 2 diabetes mellitus with hypoglycemia without coma; Z79.4 - assisted (current) use of insulin (10) Human immunodeficiency virus disease: Status: Chronic
[2021-03-17] MEDS: SNACK - Diabetic Appropriate PO SCH (21:00)
[2021-03-17] MEDS: NORCO 5/325 MG TAB PO PRN (21:05)
[2021-03-18] MEDS: ACCUNEB 1.25 MG NEBULE NEB SCH ×4 (00:35→16:59)
[2021-03-18] MEDS: NS 1000 ML 1,000 ML IV SCH ×3 (01:30→16:49)
[2021-03-18 04:38] LABS: BASOPHILS # (AUTO) 0.1 X10^3/uL (0.0-0.1); BASOPHILS % (AUTO) 2.4 % (0.2-1.0); EOSINOPHILS # (AUTO) 0.6 x10^3/uL (0.0-0.2); EOSINOPHILS % (AUTO) 12.9 % (0.9-2.9); HEMATOCRIT 23.4 % (42.0-54.0); LYMPHOCYTES # (AUTO) 1.6 X10^3/uL (1.3-2.9); MEAN CORPUSCULAR HEMOGLOBIN 30.3 pg (27.0-34.0); MEAN CORPUSCULAR HGB CONC 34.3 g/dL (33.0-35.0); MEAN CORPUSCULAR VOLUME 88.3 fL (80.0-100.0); MEAN PLATELET VOLUME 7.9 fL (7.4-11.0); MONOCYTES # (AUTO) 0.6 x10^3/uL (0.3-0.8); MONOCYTES % (AUTO) 11.7 % (0.0-13.0); NEUTROPHILS # (AUTO) 1.9 x10^3/uL (2.2-4.8); PLATELET COUNT 412 X10^3/uL (150.0-450.0); RED BLOOD COUNT 2.65 X10^6/uL (4.7-6.0); RED CELL DISTRIBUTION WIDTH 13.4 % (11.6-16.5); WHITE BLOOD COUNT 4.8 X10^3/uL (3.6-10.0)
[2021-03-18 04:43] LABS: CALCIUM 8.5 mg/dL (8.5-10.1); CARBON DIOXIDE 23.4 mmol/L (21-32); CREATININE 1.57 mg/dL (0.70-1.30)
[2021-03-18] MEDS: PERIACTIN TAB 4 MG PO SCH (05:08)
[2021-03-18] MEDS: VOLTAREN 1 % GEL MULTI DOSE TUBE TOP SCH ×3 (05:09→21:13)
[2021-03-18] MEDS: PULMICORT NEB TX 0.5 MG NEB SCH ×2 (08:38→21:20)
[2021-03-18] MEDS: FERROUS GLUCONATE PO SCH (09:01)
[2021-03-18] MEDS: RALTEGRAVIR 600 MG PO SCH (09:02)
[2021-03-18] MEDS: PROTONIX INJ 40 MG VIAL IVP SCH ×2 (09:02→21:10)
[2021-03-18] MEDS: REQUIP PO SCH ×2 (09:02→21:09)
[2021-03-18] MEDS: BACTROBAN TOPICAL OINT TOP SCH ×3 (10:08→21:12)
[2021-03-18] MEDS: MEGACE PO SCH ×2 (10:08→21:09)
[2021-03-18] MEDS: PATIENT'S HOME MEDICATION PO SCH (15:28)
[2021-03-18] MEDS ORDERED: PATIENT'S HOME MEDICATION PO SCH (15:30)
--- NOTE | 2021-03-18 17:58 | PCM.PROG ---
Progress Note - Progress Note for Day of Date of Exam: 03/18/21 - Subjective Subjective: Pt is 65BM currently being treated for weakness, anemia, anorexia and chronic diseased. Patient was having poor appetite and weight loss. He claims that he lost more than 40 pounds. He was having frequent vomiting and feeling full after small meals. No bleeding. He denies any abdominal pain. No significant gastroesophageal reflux disease problems. He has normal bowel habits with no rectal bleeding. Lately, the patient was found to be somewhat anemic with positive blood in the stool. He does have several medical issues including recent pneumonia, recent H. Pylori gastroenteritis, history of deep vein thrombosis and pulmonary embolism along with being HIV positive on several anti- viral medications. Chronic anemia. Chronic kidney disease. The patient is a diabetic. Patient seen at bedside, no acute overnight events. He states his appetite is about the same, has not improved much. He did drink some Ensure yesterday. His BP was slightly low this morning, 95/67. He has been ambulating in the room and to the bathroom. He states he has some dry cough. Continue current treatment, monitor H/H. Eliquis and heparin on hold due to anemia. Continue iron replacement. Continue appetite stimulant. Encourage PO intake. Monitor H/H, transfuse if below 7. Monitor Am labs and imaging. - Past Medical Family Social History Past Med/Fam/Surg Hx: No changes since H&P Allergies: Allergies No Known Drug Allergies Allergy (Verified 03/08/21 17:57) - Review of Systems ROS: No change since H&P - Vital Signs and I&O's Vital Signs: Temperature 98.4 F Pulse Rate [Left Brachial] 76 Pulse Rate 84 Respiratory Rate 20 Blood Pressure [Left Arm] 112/78 Blood Pressure [Right Arm] 106/65 Blood Pressure 98/58 O2 Sat by Pulse Oximetry 97 Intake and Output: Intake & Output 03/16/21 03/17/21 03/18/21 03/19/21 11:59 11:59 11:59 11:59 Intake Total 1410 / 1410 480 / 480 3108 / 3108 600 / 600 Output Total 1600 / 1600 590 / 590 1005 / 1005 Balance -190 / -190 -110 / -110 2103 / 2103 600 / 600 - Physical Exam Oriented: Normal Eyes: Normal Ear: Normal Nose: Normal Throat: Normal Respiratory: Generalized, Diminished, Wheezes Cardiovascular: Normal : Normal Auscultation: Bowel Sounds: Normal Tenderness: Epigastric Skin: Decreased Turgur Musculoskeletal: Back:Thoracic, Back:Lumbar Psychiatric: Anxiety Speech Pattern: Clear, Appropriate - Laboratory and Diagnostics Result Diagrams: 03/18/21 04:20 03/18/21 04:20 Labs: 03/18/21 08:30 Coccyx Wound Gram Stain - Final 03/14/21 18:36 Blood Blood Culture - Final 03/14/21 18:29 Blood Blood Culture - Preliminary Laboratory WBC 4.8 X10^3/uL (3.6-10.0) 03/18/21 04:20 RBC 2.65 X10^6/uL (4.7-6.0) L 03/18/21 04:20 Hgb 8.0 g/dL (13.5-18.0) L 03/18/21 04:20 Hct 23.4 % (42.0-54.0) L 03/18/21 04:20 MCV 88.3 fL (80.0-100.0) 03/18/21 04:20 MCH 30.3 pg (27.0-34.0) 03/18/21 04:20 MCHC 34.3 g/dL (33.0-35.0) 03/18/21 04:20 RDW 13.4 % (11.6-16.5) 03/18/21 04:20 Plt Count 412 X10^3/uL (150.0-450.0) 03/18/21 04:20 Plt Count Comment Adequate (ADEQUATE) 03/15/21 11:20 MPV 7.9 fL (7.4-11.0) 03/18/21 04:20 Neut % (Auto) 40.0 % (42.0-75.0) L 03/18/21 04:20 Lymph % (Auto) 33.0 % (21.0-51.0) 03/18/21 04:20 [place] % (Auto) 11.7 % (0.0-13.0) 03/18/21 04:20 Eos % (Auto) 12.9 % (0.9-2.9) H 03/18/21 04:20 Baso % (Auto) 2.4 % (0.2-1.0) H 03/18/21 04:20 Neut # (Auto) 1.9 x10^3/uL (2.2-4.8) L 03/18/21 04:20 Lymph # (Auto) 1.6 X10^3/uL (1.3-2.9) 03/18/21 04:20 [place] # (Auto) 0.6 x10^3/uL (0.3-0.8) 03/18/21 04:20 Eos # (Auto) 0.6 x10^3/uL (0.0-0.2) H 03/18/21 04:20 Baso # (Auto) 0.1 X10^3/uL (0.0-0.1) 03/18/21 04:20 Absolute Nucleated RBC 0.0 /100WBC 03/18/21 04:20 Total Counted 100 03/15/21 11:20 Neutrophils % (Manual) 34 % (39-76) L 03/15/21 11:20 Lymphocytes % (Manual) 42 % (13-43) 03/15/21 11:20 Monocytes % (Manual) 8 % (4-9) 03/15/21 11:20 Eosinophils % (Manual) 16 % (0-6) H 03/15/21 11:20 Plt Morphology Comment Normal (NORMAL) 03/15/21 11:20 RBC Morphology Normal (NORMAL) 03/15/21 11:20 Hypochromasia 1+ A 03/13/21 04:30 Microcytosis Slight A 03/13/21 04:30 Sample Site Right brachial 03/14/21 09:41 ABG pH 7.360 (7.35-7.45) 03/14/21 09:41 ABG pCO2 30.0 mmHg (35.0-45.0) L 03/14/21 09:41 ABG pO2 79.0 mmHg (80.0-100.0) L 03/14/21 09:41 ABG HCO3 16.9 mmol/L (22-26) L* 03/14/21 09:41 ABG O2 Saturation 95.0 % (90-100) 03/14/21 09:41 ABG Base Excess -7.4 mmol/L (-2.0-2.0) L 03/14/21 09:41 Jun Test Na 03/14/21 09:41 A-a Gradient 33.0 mmHg 03/14/21 09:41 FiO2 21.0 03/14/21 09:41 Blood Gas Comments Fariha well aw 03/14/21 09:41 Sodium 141 mmol/L (136-145) 03/18/21 04:20 Corrected Sodium 142 mmol/L (136-145) 03/18/21 04:20 Potassium 4.5 mmol/L (3.5-5.1) 03/18/21 04:20 Chloride 109 mmol/L (98-107) H 03/18/21 04:20 Carbon Dioxide 23.4 mmol/L (21-32) 03/18/21 04:20 BUN 8 mg/dL (7-18) 03/18/21 04:20 Creatinine 1.57 mg/dL (0.70-1.30) H 03/18/21 04:20 Est GFR (MDRD) Af Amer 58 (>60) L 03/18/21 04:20 Est GFR (MDRD) Non-Af 48 (>60) L 03/18/21 04:20 Glucose 145 mg/dL (65-99) H 03/18/21 04:20 POC Glucose (mg/dL) 135 mg/dL (65-99) H 03/18/21 14:36 Lactic Acid 1.6 mmol/L (0.4-2.0) 03/15/21 06:49 Calcium 8.5 mg/dL (8.5-10.1) 03/18/21 04:20 Corrected Calcium 9.8 mg/dL (8.5-10.1) 03/16/21 04:29 Iron 18 ug/dL (50-175) L 03/13/21 04:30 Transferrin 90 mg/dL (202-364) L 03/13/21 04:30 Ferritin 1775 ng/mL (26-388) H 03/13/21 04:30 Total Bilirubin 0.30 mg/dL (0.2-1.0) 03/16/21 04:29 AST 24 Units/L (15-37) 03/16/21 04:29 ALT 13 Units/L (12-78) 03/16/21 04:29 Alkaline Phosphatase 125 Units/L (46-116) H 03/16/21 04:29 Total Protein 6.7 g/dL (6.4-8.2) 03/16/21 04:29 Albumin 2.5 g/dL (3.4-5.0) L 03/16/21 04:29 Globulin 4.2 g/dL (2.5-4.5) 03/16/21 04:29 Albumin/Globulin Ratio 0.6 Ratio (1.1-2.1) L 03/16/21 04:29 Triglycerides 159 mg/dL (0-150) H 03/09/21 06:03 Cholesterol 113 mg/dL (0-200) 03/09/21 06:03 LDL Cholesterol, Calc 53 mg/dL (0-100) 03/09/21 06:03 HDL Cholesterol 28 mg/dL (40-60) L 03/09/21 06:03 Cholesterol/HDL Ratio 4.0 (0.0-5.0) 03/09/21 06:03 Vitamin B12 1176 pg/mL (193-986) H 03/13/21 04:30 Folate 6.7 ng/mL (>8.6) L 03/13/21 04:30 Specimen Type Random urine 03/08/21 19:30 Urine Color Straw (YELLOW) 03/08/21 19:30 Urine Appearance Clear (CLEAR) 03/08/21 19:30 Urine pH 5.0 (5.0 - 8.0) 03/08/21 19:30 Ur Specific [place] 1.005 (1.000-1.030) 03/08/21 19:30 Urine Protein Negative (NEGATIVE) 03/08/21 19:30 Urine Glucose (UA) Negative (NEGATIVE) 03/08/21 19:30 Urine Ketones Negative (NEGATIVE) 03/08/21 19:30 Urine Occult Blood Negative (NEGATIVE) 03/08/21 19:30 Urine Nitrite Negative (NEGATIVE) 03/08/21 19:30 Urine Bilirubin Negative (NEGATIVE) 03/08/21 19:30 Urine Urobilinogen Normal (NORMAL) 03/08/21 19:30 Ur Leukocyte Esterase Negative (NEGATIVE) 03/08/21 19:30 Stool Description 5g formed brown 03/17/21 20:17 Stl Occult Blood (IFOB) Positive (NEGATIVE) A 03/17/21 20:17 Acetone, Semi-Quant Negative (NEGATIVE) 03/15/21 06:49 - Plan (1) Hyponatremia Status: Acute Plan: CONTINUE GENTLE IV HYDRATION, CXR TODAY. RESP THERAPY FOR DUO NEBS AND ISO. AM LABS, ENCOURAGE ORAL HYDRATION. BP CONTROL, HOLD INSULIN. 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
[2021-03-18] MEDS ORDERED: HumuLIN R SUBCUT PRN (19:44)
[2021-03-18] MEDS ORDERED: SNACK - Diabetic Appropriate PO SCH (20:00)
[2021-03-18] MEDS: SNACK - Diabetic Appropriate PO SCH (21:00)
[2021-03-18] MEDS ORDERED: GLUTOSE 15 GEL ORAL PO ONE (23:22)
[2021-03-18] MEDS: D50W ABBOJECT SYR IV PRN (23:30)
[2021-03-19] MEDS: D50W ABBOJECT SYR IV PRN ×4 (00:54→05:09)
[2021-03-19] MEDS: ACCUNEB 1.25 MG NEBULE NEB SCH ×4 (01:46→17:16)
[2021-03-19] MEDS ORDERED: D5W 1000 ML IV 1,000 ML IV ONE (03:12)
[2021-03-19] MEDS: D5W 1000 ML IV 1,000 ML IV SCH ×5 (03:35→21:42)
[2021-03-19] MEDS: VOLTAREN 1 % GEL MULTI DOSE TUBE TOP SCH ×3 (05:12→21:39)
[2021-03-19] MEDS: BACTROBAN TOPICAL OINT TOP SCH ×3 (05:12→21:38)
[2021-03-19] MEDS ORDERED: DIPRIVAN VIAL 20 ML ONE (07:24)
[2021-03-19] MEDS ORDERED: EPHEDRINE SULFATE INJ ONE (07:40)
[2021-03-19] MEDS: PULMICORT NEB TX 0.5 MG NEB SCH ×2 (09:25→20:55)
[2021-03-19 10:47] LABS: ALANINE AMINOTRANSFERASE 15 Units/L (12-78); ALBUMIN 2.7 g/dL (3.4-5.0); ALKALINE PHOSPHATASE 112 Units/L (46-116); ASPARTATE AMINO TRANSFERASE 25 Units/L (15-37); BLOOD UREA NITROGEN 8 mg/dL (7-18); CALCIUM 8.8 mg/dL (8.5-10.1); CARBON DIOXIDE 21.2 mmol/L (21-32); CHLORIDE 104 mmol/L (98-107); COR CA(FOR HYPOALB) 9.8 mg/dL (8.5-10.1); CREATININE 1.37 mg/dL (0.70-1.30); SODIUM 135 mmol/L (136-145); eGFR NON BLACK RACES 56 (>60)
[2021-03-19] MEDS: MEGACE PO SCH ×2 (12:18→21:36)
[2021-03-19] MEDS: FERROUS GLUCONATE PO SCH (12:18)
[2021-03-19] MEDS: RALTEGRAVIR 600 MG PO SCH (12:19)
[2021-03-19] MEDS: PATIENT'S HOME MEDICATION PO SCH (12:19)
[2021-03-19] MEDS: PROTONIX INJ 40 MG VIAL IVP SCH ×2 (12:19→21:37)
[2021-03-19] MEDS: REQUIP PO SCH ×2 (12:20→21:36)
[2021-03-19] MEDS: NULYTELY or GO-LYTELY PO SCH (12:21)
--- NOTE | 2021-03-19 15:12 | CT ---
HISTORYABD PAIN/ WEIGHT LOSSSTUDYABDOMEN/PELVIS W W/O CONCOMPARISONNone availableTECHNIQUENon-contrasted axial CT images of the abdomen and pelvis were obtained and reformatted into coronal and sagittal planes for further evaluation. Enteric contrast was also administered.Radiation dose: 810.50 mGy-cm total DLPFINDINGSPleural plaque at the posterior left lung base.Small pleural base calcified granuloma in the middle lobe.Scarring along the periphery of the posterior lung bases.Bilateral lower lobe and lingular bronchiectasis.Fat containing bilateral inguinal hernias, right greater than left, without inflammatory changes.Atherosclerotic changes to the abdominal aorta and iliac vessels without aneurysm.Stomach appears normal.Solid visceral organs of the upper abdomen are unremarkable.Gallbladder appears normal.No intra or extrahepatic biliary dilatation.Unremarkable appearance of the kidneys.No hydronephrosis, hydroureter or ureteral calculus.Unremarkable appearance of the urinary bladder.Colonic diverticulosis without diverticulitis.Mild short-segment wall thickening in the ascending colon (axial images 54-58 and sagittal images 49-53) ease.Unremarkable appearance of the small bowel.Reproductive structures are unremarkable.No evidence of acute appendicitis.No pneumoperitoneum.No significant fluid collection.No adenopathy.No acute osseous abnormality.Severe degenerative disc disease from L4-S1.Vertebral body heights maintained.Severe facet degenerative changes in the lower lumbar spine.IMPRESSION1. Nonspecific wall thickening in the ascending colon could represent underdistention, scarring or less likely a neoplastic process. Recommend a colonoscopy for further characterization.2. Colonic diverticulosis without diverticulitis.3. Chronic lung disease in the posterior lung bases including posterior scarring and bronchiectasis; as described above. Calcified pleural plaque in the left lung base could represent the sequela of asbestos exposure.Electronically signed by: Nick Weiner (Mar 19, 2021 15:10:15)
[2021-03-19] MEDS: SNACK - Diabetic Appropriate PO SCH (20:30)
[2021-03-20] MEDS: ACCUNEB 1.25 MG NEBULE NEB SCH ×4 (00:40→17:18)
[2021-03-20] MEDS: D5W 1000 ML IV 1,000 ML IV SCH (03:58)
[2021-03-20] MEDS: BACTROBAN TOPICAL OINT TOP SCH ×3 (05:08→22:30)
[2021-03-20] MEDS: VOLTAREN 1 % GEL MULTI DOSE TUBE TOP SCH ×3 (05:08→22:31)
[2021-03-20 06:04] LABS: BASOPHILS # (AUTO) 0.1 X10^3/uL (0.0-0.1); BASOPHILS % (AUTO) 2.1 % (0.2-1.0); EOSINOPHILS # (AUTO) 0.5 x10^3/uL (0.0-0.2); EOSINOPHILS % (AUTO) 9.4 % (0.9-2.9); HEMOGLOBIN 8.6 g/dL (13.5-18.0); LYMPHOCYTES # (AUTO) 2.1 X10^3/uL (1.3-2.9); LYMPHOCYTES % (AUTO) 41.4 % (21.0-51.0); MEAN CORPUSCULAR HEMOGLOBIN 29.8 pg (27.0-34.0); MEAN CORPUSCULAR HGB CONC 34.2 g/dL (33.0-35.0); MEAN CORPUSCULAR VOLUME 87.1 fL (80.0-100.0); MEAN PLATELET VOLUME 7.8 fL (7.4-11.0); MONOCYTES # (AUTO) 0.6 x10^3/uL (0.3-0.8); NEUTROPHILS # (AUTO) 1.9 x10^3/uL (2.2-4.8); NEUTROPHILS % (AUTO) 36.1 % (42.0-75.0); PLATELET COUNT 466 X10^3/uL (150.0-450.0); RED BLOOD COUNT 2.87 X10^6/uL (4.7-6.0); RED CELL DISTRIBUTION WIDTH 13.4 % (11.6-16.5); WHITE BLOOD COUNT 5.1 X10^3/uL (3.6-10.0)
[2021-03-20 06:18] LABS: ALANINE AMINOTRANSFERASE 15 Units/L (12-78); ALBUMIN 2.9 g/dL (3.4-5.0); ALKALINE PHOSPHATASE 115 Units/L (46-116); ASPARTATE AMINO TRANSFERASE 20 Units/L (15-37); BLOOD UREA NITROGEN 7 mg/dL (7-18); CALCIUM 8.9 mg/dL (8.5-10.1); CARBON DIOXIDE 23.6 mmol/L (21-32); CHLORIDE 103 mmol/L (98-107); COR CA(FOR HYPOALB) 9.8 mg/dL (8.5-10.1); CREATININE 1.43 mg/dL (0.70-1.30); SODIUM 135 mmol/L (136-145); TOTAL PROTEIN 7.4 g/dL (6.4-8.2); eGFR NON BLACK RACES 53 (>60)
[2021-03-20] MEDS ORDERED: DULCOLAX TAB EC 5 MG PO ONE (09:00)
[2021-03-20] MEDS ORDERED: CITROMA PO ONE (09:00)
[2021-03-20] MEDS: PULMICORT NEB TX 0.5 MG NEB SCH ×2 (09:13→20:41)
[2021-03-20] MEDS: PATIENT'S HOME MEDICATION PO SCH (09:32)
[2021-03-20] MEDS: FERROUS GLUCONATE PO SCH (09:32)
[2021-03-20] MEDS: MEGACE PO SCH ×2 (09:32→20:18)
[2021-03-20] MEDS: REQUIP PO SCH ×2 (09:33→20:17)
[2021-03-20] MEDS: PROTONIX INJ 40 MG VIAL IVP SCH ×2 (09:33→20:18)
[2021-03-20] MEDS: RALTEGRAVIR 600 MG PO SCH (09:33)
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
[2021-03-20] MEDS: NULYTELY or GO-LYTELY PO SCH (13:13)
[2021-03-20] MEDS: D5 NS 1000 ML 1,000 ML IV SCH (13:40)
[2021-03-20] MEDS ORDERED: ROBITUSSIN DM PO PRN (14:37)
[2021-03-20] MEDS: SNACK - Diabetic Appropriate PO SCH (20:31)
[2021-03-21] MEDS: ACCUNEB 1.25 MG NEBULE NEB SCH ×4 (00:54→17:28)
[2021-03-21 05:33] LABS: BASOPHILS # (AUTO) 0.1 X10^3/uL (0.0-0.1); BASOPHILS % (AUTO) 2.6 % (0.2-1.0); EOSINOPHILS # (AUTO) 0.4 x10^3/uL (0.0-0.2); EOSINOPHILS % (AUTO) 7.8 % (0.9-2.9); HEMATOCRIT 27.1 % (42.0-54.0); HEMOGLOBIN 9.1 g/dL (13.5-18.0); LYMPHOCYTES # (AUTO) 1.8 X10^3/uL (1.3-2.9); MEAN CORPUSCULAR HEMOGLOBIN 29.5 pg (27.0-34.0); MEAN CORPUSCULAR HGB CONC 33.6 g/dL (33.0-35.0); MEAN CORPUSCULAR VOLUME 87.9 fL (80.0-100.0); MEAN PLATELET VOLUME 7.6 fL (7.4-11.0); MONOCYTES # (AUTO) 0.6 x10^3/uL (0.3-0.8); MONOCYTES % (AUTO) 12.4 % (0.0-13.0); NEUTROPHILS # (AUTO) 2.1 x10^3/uL (2.2-4.8); NEUTROPHILS % (AUTO) 42.2 % (42.0-75.0); PLATELET COUNT 437 X10^3/uL (150.0-450.0); RED BLOOD COUNT 3.08 X10^6/uL (4.7-6.0); RED CELL DISTRIBUTION WIDTH 13.6 % (11.6-16.5)
[2021-03-21 05:42] LABS: ALANINE AMINOTRANSFERASE 14 Units/L (12-78); ALBUMIN 2.8 g/dL (3.4-5.0); ALKALINE PHOSPHATASE 113 Units/L (46-116); ASPARTATE AMINO TRANSFERASE 26 Units/L (15-37); BLOOD UREA NITROGEN 8 mg/dL (7-18); CARBON DIOXIDE 20.7 mmol/L (21-32); CHLORIDE 108 mmol/L (98-107); CREATININE 1.69 mg/dL (0.70-1.30); SODIUM 139 mmol/L (136-145); TOTAL PROTEIN 7.1 g/dL (6.4-8.2); eGFR NON BLACK RACES 44 (>60)
[2021-03-21] MEDS: D5 NS 1000 ML 1,000 ML IV SCH ×2 (06:20→17:38)
[2021-03-21] MEDS: VOLTAREN 1 % GEL MULTI DOSE TUBE TOP SCH ×3 (06:21→21:02)
[2021-03-21] MEDS: BACTROBAN TOPICAL OINT TOP SCH ×3 (06:21→21:02)
[2021-03-21] MEDS: PULMICORT NEB TX 0.5 MG NEB SCH ×3 (07:58→21:20)
[2021-03-21] MEDS: PROTONIX INJ 40 MG VIAL IVP SCH (11:15)
[2021-03-21] MEDS ORDERED: NS 1000 ML 1,000 ML ONE (12:03)
[2021-03-21] MEDS ORDERED: DIPRIVAN VIAL 20 ML ONE (12:55)
--- NOTE | 2021-03-21 13:31 | OR.IMMED ---
Immediate Post-Op Note - Immediate Post-Op Note Pre-Op Diagnosis: anemia , abnormal abdominal CT of ascending colon . .finding : mild diverticulosis . limited exam to mid TC with poor prep . Post-Op Diagnosis: limited exam with poor prep . Procedure: colonoscopy to mid TC .. Surgeon/[place] Worker: Segundo .. Findings: see OR report .. Estimated Blood Loss: none Drains: NONE Complications: none Condition: Stable Final Diagnosis: to advance diet and plan for colonscopy as out Pt .
[2021-03-21] MEDS: NULYTELY or GO-LYTELY PO SCH (16:00)
[2021-03-21] MEDS: MEGACE PO SCH ×2 (16:01→20:47)
[2021-03-21] MEDS: FERROUS GLUCONATE PO SCH (16:01)
[2021-03-21] MEDS: REQUIP PO SCH ×2 (16:02→20:47)
[2021-03-21] MEDS: PATIENT'S HOME MEDICATION PO SCH (16:04)
[2021-03-21] MEDS: RALTEGRAVIR 600 MG PO SCH (16:04)
[2021-03-21] MEDS ORDERED: ZOFRAN TAB 4 MG PO PRN (18:44)
[2021-03-21] MEDS ORDERED: GLUTOSE 15 GEL ORAL PO PRN (18:44)
[2021-03-21] MEDS: SNACK - Diabetic Appropriate PO SCH (20:31)
[2021-03-21] MEDS: PROTONIX TAB 40 MG PO SCH (20:48)
[2021-03-22] MEDS: ACCUNEB 1.25 MG NEBULE NEB SCH ×3 (00:05→12:01)
[2021-03-22] MEDS: BACTROBAN TOPICAL OINT TOP SCH ×2 (06:39→14:02)
[2021-03-22] MEDS: VOLTAREN 1 % GEL MULTI DOSE TUBE TOP SCH ×2 (06:40→14:02)
[2021-03-22] MEDS: FERROUS GLUCONATE PO SCH (08:14)
[2021-03-22] MEDS: MEGACE PO SCH (08:14)
[2021-03-22] MEDS: PATIENT'S HOME MEDICATION PO SCH (08:14)
[2021-03-22] MEDS: PROTONIX TAB 40 MG PO SCH (08:15)
[2021-03-22] MEDS: RALTEGRAVIR 600 MG PO SCH (08:15)
[2021-03-22] MEDS: REQUIP PO SCH (08:15)
[2021-03-22] MEDS: PULMICORT NEB TX 0.5 MG NEB SCH (08:24)
[2021-03-22] MEDS ORDERED: PROTONIX TAB 40 MG PO SCH (09:00)
[2021-03-22 10:20] LABS: BASOPHILS # (AUTO) 0.1 X10^3/uL (0.0-0.1); BASOPHILS % (AUTO) 2.2 % (0.2-1.0); EOSINOPHILS # (AUTO) 0.6 x10^3/uL (0.0-0.2); EOSINOPHILS % (AUTO) 10.6 % (0.9-2.9); HEMATOCRIT 23.3 % (42.0-54.0); HEMOGLOBIN 7.9 g/dL (13.5-18.0); LYMPHOCYTES # (AUTO) 2.1 X10^3/uL (1.3-2.9); LYMPHOCYTES % (AUTO) 40.3 % (21.0-51.0); MEAN CORPUSCULAR HEMOGLOBIN 30.2 pg (27.0-34.0); MEAN CORPUSCULAR HGB CONC 34.1 g/dL (33.0-35.0); MEAN CORPUSCULAR VOLUME 88.8 fL (80.0-100.0); MEAN PLATELET VOLUME 7.8 fL (7.4-11.0); MONOCYTES # (AUTO) 0.6 x10^3/uL (0.3-0.8); NEUTROPHILS # (AUTO) 1.9 x10^3/uL (2.2-4.8); NEUTROPHILS % (AUTO) 34.9 % (42.0-75.0); PLATELET COUNT 434 X10^3/uL (150.0-450.0); RED BLOOD COUNT 2.62 X10^6/uL (4.7-6.0); WHITE BLOOD COUNT 5.3 X10^3/uL (3.6-10.0)
[2021-03-22 10:27] LABS: ALANINE AMINOTRANSFERASE 21 Units/L (12-78); ALBUMIN 2.6 g/dL (3.4-5.0); ALKALINE PHOSPHATASE 106 Units/L (46-116); ASPARTATE AMINO TRANSFERASE 35 Units/L (15-37); BLOOD UREA NITROGEN 11 mg/dL (7-18); CALCIUM 8.2 mg/dL (8.5-10.1); CARBON DIOXIDE 19.6 mmol/L (21-32); CHLORIDE 108 mmol/L (98-107); COR CA(FOR HYPOALB) 9.3 mg/dL (8.5-10.1); CREATININE 2.04 mg/dL (0.70-1.30); SODIUM 141 mmol/L (136-145); TOTAL PROTEIN 6.7 g/dL (6.4-8.2); eGFR NON BLACK RACES 35 (>60)
[2021-03-22 12:56] VITALS: BP 114/64
== END 2021-03-22 15:22 | disposition home health service (06) ==
LOC: MED/SURG 05:57 → ER 05:57 → MED/SURG 15:56
PROVIDERS: ADMIT Obstetrics & Gynecology Obstetrics; ATTEND Internal Medicine
DX: J44.9 Chronic obstructive pulmonary disease, unspecified; K29.90 Gastroduodenitis, unspecified, without bleeding; R62.7 Adult failure to thrive; Z87.898 Personal history of other specified conditions; R13.11 Dysphagia, oral phase; K21.00 Gastro-esophageal reflux disease with esophagitis, without bleeding; M50.30 Other cervical disc degeneration, unspecified cervical region; N18.9 Chronic kidney disease, unspecified; I95.89 Other hypotension; E11.649 Type 2 diabetes mellitus with hypoglycemia without coma; M48.02 Spinal stenosis, cervical region; E87.1 Hypo-osmolality and hyponatremia; B20 Human immunodeficiency virus [HIV] disease; N17.8 Other acute kidney failure; E87.2 Acidosis; Z79.4 Long term (current) use of insulin; D64.89 Other specified anemias; R63.4 Abnormal weight loss; E86.0 Dehydration; R79.89 Other specified abnormal findings of blood chemistry; M62.81 Muscle weakness (generalized)